=== PATIENT | female | born 1985 | race Caucasian/White ===

== ENCOUNTER 2017-03-23 13:04 | Emergency (ER) | payer OTHER ==
[2017-03-23] MEDS ORDERED: SODIUM CHLORIDE 0.9% 1,000 ML IV STA (14:46)
[2017-03-23 15:22] LABS: Basophils % (A) 0 %; Eosinophils % (A) 0 %; HCT 38.3 % (34.0-46.0); HGB 12.6 gm/dL (11.4-16.0); Lymphocytes % (A) 9 %; MCH 29.1 pg (25.0-35.0); MCHC 32.9 g/dL (31.0-37.0); MCV 88.4 fL (80.0-100.0); Mean Platelet Volume 6.8; Monocytes # (A) 0.5 k/uL (0-1.0); Monocytes % (A) 5 %; Neutrophils # (A) 9.1 k/uL (1.3-7.7); Neutrophils % (A) 85 %; Platelet Count 376 k/uL (150-450); RBC 4.33 m/uL (3.80-5.40); RDW 12.3 % (11.5-15.5); WBC 10.7 k/uL (3.8-10.6)
[2017-03-23 15:27] LABS: ALT 32 U/L (9-52); AST 18 U/L (14-36); Albumin 4.3 g/dL (3.5-5.0); Alkaline Phosphatase 58 U/L (38-126); Anion Gap 8 mmol/L; Blood Urea Nitrogen 9 mg/dL (7-17); Calcium 10.1 mg/dL (8.4-10.2); Carbon Dioxide 27 mmol/L (22-30); Chloride 104 mmol/L (98-107); Glucose 105 mg/dL (74-99); Potassium 3.9 mmol/L (3.5-5.1); Sodium 139 mmol/L (137-145); Total Bilirubin 0.3 mg/dL (0.2-1.3); Total Protein 7.3 g/dL (6.3-8.2)
[2017-03-23] MEDS ORDERED: ONDANSETRON 4 MG/2 ML VIAL IVP STA (15:28)
[2017-03-23] MEDS ORDERED: HYDROmorphone 1 MG/ML 1 ML SYRINGE IVP STA (15:28)
[2017-03-23] MEDS ORDERED: SODIUM CHLORIDE 0.9% 1,000 ML IV SCH (15:30)
[2017-03-23] MEDS ORDERED: RX INFO: IV CONTRAST WAS GIVEN 1 EACH MISC MISCELLANE PRN (15:31)
[2017-03-23 15:37] LABS: Creatine Kinase 45 U/L (30-135)
[2017-03-23 15:43] LABS: Prothrombin Time 10.1 sec (9.0-12.0)
[2017-03-23 15:50] LABS: Creatine Kinase MB 1.8 ng/mL (0.0-2.4); Troponin I <0.012 ng/mL (0.000-0.034)
--- NOTE | 2017-03-23 15:59 | ED ---
General Adult HPI - General Chief complaint: GI Bleed Stated complaint: Abd pain Time Seen by Provider: 03/23/17 14:36 Source: patient, RN notes reviewed, old records reviewed Mode of arrival: ambulatory Limitations: no limitations - History of Present Illness Initial comments: 31-year-old female presents emergency Department chief complaint of an ulcerative colitis exacerbation. She was started on steroids by Dr. Sharp possibly 3 days ago. She for she's been having worsening bloody stools. Reports is a dark blood. Patient states that she's has a foul odor to her stools. She reports she has upper and lower abdominal pain. She states that she's not had a flareup this bad, manages with remicade and kanasta suppositories. She denies any fever she feels chilled. She denies any vomiting. - Related Data Home Medications Medication Instructions Recorded Confirmed Acetaminophen [Tylenol 8 Hour] 650 mg PO TID PRN 03/23/17 03/23/17 Amoxicillin 875 mg PO Q12HR 03/23/17 03/23/17 Dextroamphetamine/Amphetamine 20 mg PO QAM PRN 03/23/17 03/23/17 [Adderall Xr] Fluconazole [Diflucan] 150 mg PO ONCE 03/23/17 03/23/17 Ondansetron [Zofran] 4 mg PO Q12HR PRN 03/23/17 03/23/17 predniSONE 10 mg PO TID 03/23/17 03/23/17 Previous Rx's Medication Instructions Recorded Omeprazole [PriLOSEC] 40 mg PO DAILY #30 capsule. 03/23/17 Sucralfate [Carafate] 1 gm PO BID #20 tablet 03/23/17 predniSONE 50 mg PO DAILY #7 tablet 03/23/17 Allergies Allergy/AdvReac Type Severity Reaction Status Date / Time prochlorperazine Allergy Confusion Verified 03/23/17 15:09 [From Compazine] Review of Systems ROS Statement: Those systems with pertinent positive or pertinent negative responses have been documented in the HPI. ROS Other: All systems not noted in ROS Statement are negative. Past Medical History Past Medical History: Fibromyalgia Additional Past Medical History / Comment(s): ulcerative colitis, endometriosis , arthritis History of Any Multi-Drug Resistant Organisms: None Reported Past Surgical History: Adenoidectomy, Ear Surgery, Tonsillectomy, Tubal Ligation , Uterine Ablation Past Psychological History: No Psychological Hx Reported Smoking Status: Current every day smoker Past Alcohol Use History: None Reported Past Drug Use History: None Reported General Exam - General Exam Comments Initial Comments: Is a 31-year-old female. No acute distress. Limitations: no limitations General appearance: alert, in no apparent distress Head exam: Present: atraumatic, normocephalic, normal inspection Eye exam: Present: normal appearance, PERRL, EOMI. Absent: scleral icterus, conjunctival injection, periorbital swelling ENT exam: Present: normal exam, mucous membranes moist Neck exam: Present: normal inspection. Absent: tenderness, meningismus, lymphadenopathy Respiratory exam: Present: normal lung sounds bilaterally. Absent: respiratory distress, wheezes, rales, rhonchi, stridor Cardiovascular Exam: Present: regular rate, normal rhythm, normal heart sounds. Absent: systolic murmur, diastolic murmur, rubs, gallop, clicks GI/Abdominal exam: Present: soft, tenderness (lower quadrant and epigastric tenderness), normal bowel sounds. Absent: distended, guarding, rebound, rigid Extremities exam: Present: normal inspection, full ROM, normal capillary refill. Absent: tenderness, pedal edema, joint swelling, calf tenderness Back exam: Present: normal inspection Neurological exam: Present: alert, oriented X3, CN II-XII intact Psychiatric exam: Present: normal affect Skin exam: Present: warm, dry, intact, normal color. Absent: rash Course Vital Signs 03/23/17 03/23/17 13:21 17:07 Temperature 97.7 F 98.4 F Pulse Rate 81 67 Respiratory 18 17 Rate Blood Pressure 126/83 118/68 O2 Sat by Pulse 98 99 Oximetry Medical Decision Making - Medical Decision Making [id number] female presents emergency Department chief complaint of an ulcerative colitis exacerbation. She was started on steroids by Dr. Sharp possibly 3 days ago. She for she's been having worsening bloody stools. Reports is a dark blood. Patient lab work was reviewed, stable labs. Normal Hgb. Stool occult is positive. No other significant abnormalities. CT abdomen and pelvis completed. Patient CT was normal. Discussed that we can increase prednisone dose to 50 mg daily, patient is currently on 30. Discussed that her abdominal pain is more supperior, and with dark blood, it is likely an upper GI bleed vs. UC flare. Discussed starting prilosec and carafate. Discussed return parameters and follow up with PCP and GI specialist. Patient agrees to treatment plan and will comply. - Lab Data Result diagrams: 03/23/17 15:08 03/23/17 15:08 Lab Results 03/23/17 03/23/17 03/23/17 Range/Units 15:08 15:08 15:08 WBC 10.7 H (3.8-10.6) k/uL RBC 4.33 (3.80-5.40) m/uL Hgb 12.6 (11.4-16.0) gm/dL Hct 38.3 (34.0-46.0) % MCV 88.4 (80.0-100.0) fL MCH 29.1 (25.0-35.0) pg MCHC 32.9 (31.0-37.0) g/dL RDW 12.3 (11.5-15.5) % Plt Count 376 (150-450) k/uL Neutrophils % 85 % Lymphocytes % 9 % Monocytes % 5 % Eosinophils % 0 % Basophils % 0 % Neutrophils # 9.1 H (1.3-7.7) k/uL Lymphocytes # 1.0 (1.0-4.8) k/uL Monocytes # 0.5 (0-1.0) k/uL Eosinophils # 0.0 (0-0.7) k/uL Basophils # 0.0 (0-0.2) k/uL PT (9.0-12.0) sec INR (<1.2) APTT (22.0-30.0) sec Sodium 139 (137-145) mmol/L Potassium 3.9 (3.5-5.1) mmol/L Chloride 104 (98-107) mmol/L Carbon Dioxide 27 (22-30) mmol/L Anion Gap 8 mmol/L BUN 9 (7-17) mg/dL Creatinine 0.57 (0.52-1.04) mg/dL Est GFR (MDRD) Af Amer >60 (>60 ml/min/1.73 sqM) Est GFR (MDRD) Non-Af >60 (>60 ml/min/1.73 sqM) Glucose 105 H (74-99) mg/dL Calcium 10.1 (8.4-10.2) mg/dL Magnesium (1.6-2.3) mg/dL Total Bilirubin 0.3 (0.2-1.3) mg/dL AST 18 (14-36) U/L ALT 32 (9-52) U/L Alkaline Phosphatase 58 (38-126) U/L Total Creatine Kinase 45 (30-135) U/L CK-MB (CK-2) 1.8 (0.0-2.4) ng/mL CK-MB (CK-2) Rel Index 4.0 Troponin I <0.012 (0.000-0.034) ng/mL Total Protein 7.3 (6.3-8.2) g/dL Albumin 4.3 (3.5-5.0) g/dL Urine Color Urine Appearance (Clear) Urine pH (5.0-8.0) Ur Specific [place] (1.001-1.035) Urine Protein (Negative) Urine Glucose (UA) (Negative) Urine Ketones (Negative) Urine Blood (Negative) Urine Nitrite (Negative) Urine Bilirubin (Negative) Urine Urobilinogen (<2.0) mg/dL Ur Leukocyte Esterase (Negative) Urine HCG, Qual (Not Detectd) Stool Occult Blood (Negative) 03/23/17 03/23/17 03/23/17 Range/Units 15:08 15:08 15:08 WBC (3.8-10.6) k/uL RBC (3.80-5.40) m/uL Hgb (11.4-16.0) gm/dL Hct (34.0-46.0) % MCV (80.0-100.0) fL MCH (25.0-35.0) pg MCHC (31.0-37.0) g/dL RDW (11.5-15.5) % Plt Count (150-450) k/uL Neutrophils % % Lymphocytes % % Monocytes % % Eosinophils % % Basophils % % Neutrophils # (1.3-7.7) k/uL Lymphocytes # (1.0-4.8) k/uL Monocytes # (0-1.0) k/uL Eosinophils # (0-0.7) k/uL Basophils # (0-0.2) k/uL PT 10.1 (9.0-12.0) sec INR 1.0 (<1.2) APTT 22.2 (22.0-30.0) sec Sodium (137-145) mmol/L Potassium (3.5-5.1) mmol/L Chloride (98-107) mmol/L Carbon Dioxide (22-30) mmol/L Anion Gap mmol/L BUN (7-17) mg/dL Creatinine (0.52-1.04) mg/dL Est GFR (MDRD) Af Amer (>60 ml/min/1.73 sqM) Est GFR (MDRD) Non-Af (>60 ml/min/1.73 sqM) Glucose (74-99) mg/dL Calcium (8.4-10.2) mg/dL Magnesium 2.1 (1.6-2.3) mg/dL Total Bilirubin (0.2-1.3) mg/dL AST (14-36) U/L ALT (9-52) U/L Alkaline Phosphatase (38-126) U/L Total Creatine Kinase (30-135) U/L CK-MB (CK-2) (0.0-2.4) ng/mL CK-MB (CK-2) Rel Index Troponin I (0.000-0.034) ng/mL Total Protein (6.3-8.2) g/dL Albumin (3.5-5.0) g/dL Urine Color Urine Appearance (Clear) Urine pH (5.0-8.0) Ur Specific [place] (1.001-1.035) Urine Protein (Negative) Urine Glucose (UA) (Negative) Urine Ketones (Negative) Urine Blood (Negative) Urine Nitrite (Negative) Urine Bilirubin (Negative) Urine Urobilinogen (<2.0) mg/dL Ur Leukocyte Esterase (Negative) Urine HCG, Qual (Not Detectd) Stool Occult Blood (Negative) 03/23/17 03/23/17 03/23/17 Range/Units 15:25 15:25 15:41 WBC (3.8-10.6) k/uL RBC (3.80-5.40) m/uL Hgb (11.4-16.0) gm/dL Hct (34.0-46.0) % MCV (80.0-100.0) fL MCH (25.0-35.0) pg MCHC (31.0-37.0) g/dL RDW (11.5-15.5) % Plt Count (150-450) k/uL Neutrophils % % Lymphocytes % % Monocytes % % Eosinophils % % Basophils % % Neutrophils # (1.3-7.7) k/uL Lymphocytes # (1.0-4.8) k/uL Monocytes # (0-1.0) k/uL Eosinophils # (0-0.7) k/uL Basophils # (0-0.2) k/uL PT (9.0-12.0) sec INR (<1.2) APTT (22.0-30.0) sec Sodium (137-145) mmol/L Potassium (3.5-5.1) mmol/L Chloride (98-107) mmol/L Carbon Dioxide (22-30) mmol/L Anion Gap mmol/L BUN (7-17) mg/dL Creatinine (0.52-1.04) mg/dL Est GFR (MDRD) Af Amer (>60 ml/min/1.73 sqM) Est GFR (MDRD) Non-Af (>60 ml/min/1.73 sqM) Glucose (74-99) mg/dL Calcium (8.4-10.2) mg/dL Magnesium (1.6-2.3) mg/dL Total Bilirubin (0.2-1.3) mg/dL AST (14-36) U/L ALT (9-52) U/L Alkaline Phosphatase (38-126) U/L Total Creatine Kinase (30-135) U/L CK-MB (CK-2) (0.0-2.4) ng/mL CK-MB (CK-2) Rel Index Troponin I (0.000-0.034) ng/mL Total Protein (6.3-8.2) g/dL Albumin (3.5-5.0) g/dL Urine Color Yellow Urine Appearance Clear (Clear) Urine pH 6.5 (5.0-8.0) Ur Specific [place] 1.013 (1.001-1.035) Urine Protein Negative (Negative) Urine Glucose (UA) Negative (Negative) Urine Ketones Trace H (Negative) Urine Blood Negative (Negative) Urine Nitrite Negative (Negative) Urine Bilirubin Negative (Negative) Urine Urobilinogen <2.0 (<2.0) mg/dL Ur Leukocyte Esterase Negative (Negative) Urine HCG, Qual Not Detected (Not Detectd) Stool Occult Blood Positive H (Negative) - Radiology Data Radiology results: report reviewed CT abdomen and pelvis is negative for any acute process. Disposition Clinical Impression: Ulcerative colitis, GI bleed Disposition: HOME SELF-CARE Condition: Good Instructions: Gastrointestinal Bleeding (ED) Additional Instructions: Follow up with GI specialist. Return to ED if any alarming signs or symptoms occur. Rest, remain hydrated Prescriptions: Omeprazole [PriLOSEC] 40 mg PO DAILY #30 capsule. predniSONE 50 mg PO DAILY #7 tablet Sucralfate [Carafate] 1 gm PO BID #20 tablet Referrals: Messi Cr MD [Primary Care Provider] - 1-2 days Time of Disposition: 16:57
[2017-03-23 16:00] LABS: Appearance,Urine Clear (Clear); Bilirubin,Urine Negative (Negative); Blood,Urine Negative (Negative); Color,Urine Yellow; Glucose,Urine (UA) Negative (Negative); Ketones,Urine Trace (Negative); Leukocyte Esterase,Urine Negative (Negative); Nitrite,Urine Negative (Negative); PH, Urine 6.5 (5.0-8.0); Protein,Urine Negative (Negative); Specific Gravity,Urine 1.013 (1.001-1.035); Urobilinogen,Urine <2.0 mg/dL (<2.0)
--- NOTE | 2017-03-23 16:26 | CT ---
EXAMINATION TYPE: CT abdomen pelvis w con DATE OF EXAM: 03/23/2017 COMPARISON: 01/04/2016 HISTORY: upper abdominal pain with blood in stool and weight loss CT DLP: 332.3 mGycm Automated exposure control for dose reduction was used. TECHNIQUE: Helical acquisition of images was performed from the lung bases through the pelvis. CONTRAST: Performed without Oral Contrast and with IV Contrast, patient injected with 100 mL of Omnipaque 300. FINDINGS: Lung bases are clear. There is no pleural effusion. Liver spleen pancreas gallbladder appear normal. Bile ducts are not dilated. There is no adrenal mass. Kidneys show satisfactory contrast opacificatio n. There is no hydronephrosis. There is no retroperitoneal adenopathy. There is no ascites. I see no intestinal wall thickening. There are no dilated loops. Bladder distends smoothly. I see no bony dest ructive process. There is no sign of appendicitis. IMPRESSION: NEGATIVE CT SCAN OF THE ABDOMEN AND PELVIS. NO ADVERSE CHANGE COMPARED TO OLD EXAM.
[2017-03-23 17:08] VITALS: BP 118/68; PULSE 67; RESP 17; TEMP 98.4
== END 2017-03-23 17:07 | disposition home or self-care (01) ==
LOC: EC 13:04
DX: K51.90 Ulcerative colitis, unspecified, without complications (principal); K92.2 Gastrointestinal hemorrhage, unspecified; F17.200 Nicotine dependence, unspecified, uncomplicated; Z79.52 Long term (current) use of systemic steroids; Z79.899 Other long term (current) drug therapy; Z88.8 Allergy status to other drugs, medicaments and biological substances
CPT/HCPCS: 36415; 80053; 82550; 82553; 83735; 84484; 85025; 85610; 85730; 82272; 81003; 81025; 74177; 99285; 96374; 96375; 96361 ×2; J2405; J1170; Q9967

== ENCOUNTER 2017-09-04 21:54 | Emergency (ER) | payer OTHER ==
[2017-09-04 22:29] VITALS: RESP 18
[2017-09-04] MEDS ORDERED: KETOROLAC 30 MG/ML 1 ML VIAL IVP STA (23:42)
[2017-09-04] MEDS ORDERED: SODIUM CHLORIDE 0.9% 1,000 ML IV ONE (23:42)
[2017-09-04 23:57] LABS: Basophils % (A) 1 %; Eosinophils # (A) 0.1 k/uL (0-0.7); Eosinophils % (A) 1 %; HCT 32.8 % (34.0-46.0); HGB 10.6 gm/dL (11.4-16.0); Hypochromasia Moderate; Lymphocytes # (A) 2.2 k/uL (1.0-4.8); Lymphocytes % (A) 23 %; MCH 25.7 pg (25.0-35.0); MCHC 32.3 g/dL (31.0-37.0); MCV 79.8 fL (80.0-100.0); Mean Platelet Volume 6.6; Monocytes # (A) 0.5 k/uL (0-1.0); Monocytes % (A) 5 %; Neutrophils # (A) 6.7 k/uL (1.3-7.7); Neutrophils % (A) 69 %; Platelet Count 372 k/uL (150-450); Poikilocytosis Slight; RBC 4.11 m/uL (3.80-5.40); RDW 14.1 % (11.5-15.5); WBC 9.7 k/uL (3.8-10.6)
[2017-09-05 00:05] LABS: Anion Gap 9 mmol/L; Blood Urea Nitrogen 14 mg/dL (7-17); Calcium 8.8 mg/dL (8.4-10.2); Carbon Dioxide 26 mmol/L (22-30); Chloride 103 mmol/L (98-107); Glucose 83 mg/dL (74-99); Potassium 3.1 mmol/L (3.5-5.1); Sodium 138 mmol/L (137-145)
[2017-09-05] MEDS ORDERED: MORPHINE SULFATE 2 MG/ML SYRINGE IV STA (00:32)
[2017-09-05] MEDS ORDERED: ONDANSETRON 4 MG/2 ML VIAL IVP STA (00:39)
[2017-09-05 01:02] VITALS: TEMP 98.4
[2017-09-05 01:18] LABS: Erythrocyte Sedimentation Rate 26 mm/hr (0-20)
[2017-09-05 01:33] LABS: Glucose,CSF 52 mg/dL (40-70); Total Protein,CSF 40 mg/dL (12-60)
[2017-09-05 01:39] VITALS: PULSE 79
[2017-09-05 02:01] LABS: Appearance,CSF Clear; CSF Tube Number 3; CSF Tube Volume 0.5; Nucleated Cells, CSF 0 u/L (0-5); Red Blood Cell,CSF 1 u/L (0-10)
[2017-09-05] MEDS ORDERED: POTASSIUM BICARBONATE/CIT AC 20 MEQ TABLET.EFF PO STA (02:05)
[2017-09-05 02:16] VITALS: BP 121/66
--- NOTE | 2017-09-05 02:23 | ED ---
Headache HPI - General Chief Complaint: Headache Stated Complaint: headache/nausea Time Seen by Provider: 09/04/17 22:32 Mode of arrival: ambulatory Limitations: no limitations - History of Present Illness Initial Comments: This patient is 31-year-old woman who presents to be evaluated for headache as well as nausea. Patient indicates that the headache is mainly occipital though it is in the entire head. She also feels like she has worsening pain with movement of her neck. She has had some low-grade fevers at home. She states that the last time she had this she was diagnosed with meningitis. She is concerned about possibility of this recurring. The patient also does give history of migraine headaches but states that this is different as those are usually more in the temporal area. She denies any neurologic symptoms. MD Complaint: headache -: hour(s) Onset Description: gradual Location: occipital Severity: severe Quality: aching Consistency: constant Improves With: nothing Worsens With: movement of head/neck Associated Symptoms: fever, nausea, vomiting Treatments Prior to Arrival: none - Related Data Home Medications Medication Instructions Recorded Confirmed Dextroamphetamine/Amphetamine 20 mg PO QAM PRN 03/23/17 09/04/17 [Adderall Xr] Ondansetron [Zofran] 4 mg PO Q12HR PRN 03/23/17 09/04/17 predniSONE 30 mg PO DAILY 03/23/17 09/04/17 Omeprazole [PriLOSEC] 20 mg PO BID 09/04/17 09/04/17 Previous Rx's Medication Instructions Recorded Potassium Chloride ER [K-Dur 20] 20 meq PO BID #10 tab 09/05/17 Allergies Allergy/AdvReac Type Severity Reaction Status Date / Time prochlorperazine Allergy Confusion Verified 09/04/17 22:20 [From Compazine] Review of Systems ROS Statement: Those systems with pertinent positive or pertinent negative responses have been documented in the HPI. ROS Other: All systems not noted in ROS Statement are negative. Constitutional: Reports: fever. Denies: chills, weakness Eyes: Denies: vision change ENT: Denies: ear pain, hearing loss Respiratory: Denies: cough, dyspnea Cardiovascular: Denies: chest pain, palpitations, edema, syncope Gastrointestinal: Reports: nausea, vomiting. Denies: abdominal pain Genitourinary: Denies: dysuria, hematuria Musculoskeletal: Denies: back pain Skin: Denies: rash Neurological: Reports: as per HPI, headache. Denies: weakness, numbness, paresthesias, confusion Hematological/Lymphatic: Denies: easy bleeding Past Medical History Past Medical History: Fibromyalgia Additional Past Medical History / Comment(s): ulcerative colitis, endometriosis , arthritis History of Any Multi-Drug Resistant Organisms: None Reported Past Surgical History: Adenoidectomy, Ear Surgery, Tonsillectomy, Tubal Ligation , Uterine Ablation Past Psychological History: No Psychological Hx Reported Smoking Status: Current every day smoker Past Alcohol Use History: None Reported Past Drug Use History: None Reported General Exam Limitations: no limitations General appearance: alert, in no apparent distress Head exam: Present: atraumatic, normocephalic Eye exam: Present: normal appearance. Absent: scleral icterus, conjunctival injection ENT exam: Present: normal oropharynx, mucous membranes moist, TM's normal bilaterally, normal external ear exam Neck exam: Present: normal inspection, full ROM, lymphadenopathy, other (The patient does have range of motion at the neck but complains of pain with this). Absent: tenderness Respiratory exam: Present: normal lung sounds bilaterally. Absent: respiratory distress, wheezes, rales, rhonchi, stridor Cardiovascular Exam: Present: regular rate, normal rhythm, normal heart sounds. Absent: systolic murmur, diastolic murmur, rubs, gallop GI/Abdominal exam: Present: soft. Absent: distended, tenderness, guarding, rebound, rigid, mass Extremities exam: Present: normal inspection, normal capillary refill. Absent: pedal edema, calf tenderness Back exam: Present: normal inspection. Absent: CVA tenderness (R), CVA tenderness (L) Neurological exam: Present: alert, oriented X3, CN II-XII intact. Absent: motor sensory deficit Skin exam: Present: warm, dry, intact, normal color. Absent: rash Course Vital Signs 09/04/17 09/04/17 09/04/17 22:05 22:27 23:16 Temperature 98.2 F 99.1 F Pulse Rate 95 84 93 Respiratory 16 18 18 Rate Blood Pressure 133/91 136/94 127/90 O2 Sat by Pulse 99 100 100 Oximetry 09/04/17 09/05/17 09/05/17 23:55 00:41 01:01 Temperature 98.4 F Pulse Rate 79 88 76 Respiratory 18 18 18 Rate Blood Pressure 122/80 127/79 118/76 O2 Sat by Pulse 98 100 99 Oximetry 09/05/17 09/05/17 01:38 02:15 Temperature Pulse Rate 79 79 Respiratory 18 18 Rate Blood Pressure 117/79 121/66 O2 Sat by Pulse 100 97 Oximetry Procedures - Lumbar Puncture Consent Obtained: verbal consent, written consent Time Out Performed: Yes Indication for Procedure: headache, fever work up Patient Position: sitting upright/leaning forward Skin Prep: Povidone-Iodine 1% Local Anesthetic Used: Lidocaine 1% Spinal Needle Gauge: 20G Spinal Needle Length: 3.5in Interspace Used: L4-L5 Fluid Initially Obtained: clear Complications: none Patient Tolerated Procedure: well Medical Decision Making - Medical Decision Making Patient is 31-year-old woman with headache and neck symptoms associated with low -grade fever. We discussed indications, risks and benefits of lumbar puncture and the patient requests this procedure. The fluid does not show any cells. The patient did have improvement with treatment. We discussed appropriate further care and follow-up. - Lab Data Result diagrams: 09/04/17 23:49 09/04/17 23:49 Lab Results 09/04/17 09/04/17 09/05/17 Range/Units 23:49 23:49 00:58 WBC 9.7 (3.8-10.6) k/uL RBC 4.11 (3.80-5.40) m/uL Hgb 10.6 L (11.4-16.0) gm/dL Hct 32.8 L (34.0-46.0) % MCV 79.8 L (80.0-100.0) fL MCH 25.7 (25.0-35.0) pg MCHC 32.3 (31.0-37.0) g/dL RDW 14.1 (11.5-15.5) % Plt Count 372 (150-450) k/uL Neutrophils % 69 % Lymphocytes % 23 % Monocytes % 5 % Eosinophils % 1 % Basophils % 1 % Neutrophils # 6.7 (1.3-7.7) k/uL Lymphocytes # 2.2 (1.0-4.8) k/uL Monocytes # 0.5 (0-1.0) k/uL Eosinophils # 0.1 (0-0.7) k/uL Basophils # 0.0 (0-0.2) k/uL Hypochromasia Moderate Poikilocytosis Slight ESR 26 H (0-20) mm/hr Sodium 138 (137-145) mmol/L Potassium 3.1 L (3.5-5.1) mmol/L Chloride 103 (98-107) mmol/L Carbon Dioxide 26 (22-30) mmol/L Anion Gap 9 mmol/L BUN 14 (7-17) mg/dL Creatinine 0.69 (0.52-1.04) mg/dL Est GFR (CKD-EPI)AfAm >90 (>60 ml/min/1.73 sqM) Est GFR (CKD-EPI)NonAf >90 (>60 ml/min/1.73 sqM) Glucose 83 (74-99) mg/dL Calcium 8.8 (8.4-10.2) mg/dL CSF Tube Number 3 CSF Volume 0.5 CSF Appearance Clear CSF Color Colorless CSF RBC 1 (0-10) u/L CSF Tot Nucleated Cells 0 (0-5) u/L CSF Glucose 52 (40-70) mg/dL CSF Total Protein 40 (12-60) mg/dL Disposition Clinical Impression: Viral syndrome Disposition: HOME SELF-CARE Condition: Good Instructions: Acute Headache (ED) Prescriptions: Potassium Chloride ER [K-Dur 20] 20 meq PO BID #10 tab Is patient prescribed a controlled substance at d/c from ED?: No Referrals: Messi Cr MD [Primary Care Provider] - 1-2 days
== END 2017-09-05 02:47 | disposition home or self-care (01) ==
LOC: EC 21:54
DX: B34.9 Viral infection, unspecified (principal); G43.909 Migraine, unspecified, not intractable, without status migrainosus; F17.200 Nicotine dependence, unspecified, uncomplicated; Z86.61 Personal history of infections of the central nervous system; Z79.52 Long term (current) use of systemic steroids; Z79.899 Other long term (current) drug therapy; Z88.8 Allergy status to other drugs, medicaments and biological substances
CPT/HCPCS: 36415; 84157; 80048; 82945; 85652; 85025; 89050; 87070; 87205; 99283; 62270; 96374; 96375 ×2; 96361 ×2; J2405; J1885; J2270

== ENCOUNTER → 2017-10-01 | Outpatient (CLI) | payer OTHER ==
--- NOTE | 2017-10-01 22:57 | MR ---
EXAMINATION TYPE: MR brain wo con DATE OF EXAM: 10/01/2017 COMPARISON: NONE HISTORY: Headache (R 51) per order. Severe migraine headaches with left-sided hearing loss per patien t. TECHNIQUE: Multiplanar, multisequence imaging of the brain and brainstem is performed without IV cont rast. FINDINGS: Diffusion weighted images demonstrate no evidence of a recent infarct or other diffusion abnormality. There is no extraaxial fluid collection or significant white matter signal abnormality. The ventricu lar system and cisternal spaces are normal in size and appearance. The brain volume is age appropria te. Midline structures demonstrate normal morphology. The craniocervical junction appears within normal limits. Normal vascular flow voids are present. The globes are distorted by artifact bilaterally. The re is suspected 1.2 cm mucous retention cyst or polyp in the posterior inferior right maxillary sinus otherwise paranasal sinuses are clear. IMPRESSION: No suspicious finding is seen to account for patient's symptoms.
== END | disposition home or self-care (01) ==
LOC: RADMRIMAIN 18:09
PROVIDERS: ATTEND Family Medicine
DX: R51 Headache (principal)
CPT/HCPCS: 70551

== ENCOUNTER → 2019-02-05 | Outpatient (CLI) | payer OTHER ==
--- NOTE | 2019-02-05 10:32 | ECHOF ---
Referral Reason:R07.89 atypical chest pain MEASUREMENTS -------- HEIGHT: 160.0 cm WEIGHT: 60.3 kg BP: RVIDd: 2.7 cm (< 3.3) IVSd: 0.9 cm (0.6 - 1.1) LVIDd: 3.4 cm (3.9 - 5.3) LVPWd: 1.0 cm (0.6 - 1.1) IVSs: 1.3 cm LVIDs: 2.4 cm LVPWs: 1.2 cm LAESV Index (A-L): 10.43 ml/m Ao Diam: 2.3 cm (2.0 - 3.7) AV Cusp: 2.1 cm (1.5 - 2.6) LA Diam: 3.1 cm (2.7 - 3.8) MV EXCURSION: 15.033 mm (> 18.000) MV EF SLOPE: 39 mm/s (70 - 150) EPSS: 0.2 cm MV E Alexey: 0.66 m/s MV DecT: 212 ms MV A Alexey: 0.52 m/s MV E/A Ratio: 1.26 RAP: 5.00 mmHg RVSP: 31.95 mmHg FINDINGS -------- Sinus rhythm. This was a technically good study. The left ventricular size is normal. Left ventricular wall thickness is normal. There is normal g lobal left ventricular contractility. Overall left ventricular systolic function is normal with, an EF between 55 - 60 %. The diastolic filling pattern is normal for the age of the patient 9.00. The right ventricle is normal in size and function. Normal LA size by volume 22+/-6 ml/m2. The right atrial size is normal. Interatrial and interventricular septum intact. The aortic valve is trileaflet, and appears structurally normal. No aortic stenosis or regurgitation. Normal appearing mitral valve. No mitral regurgitation. The tricuspid valve appears structurally normal. Trace tricuspid regurgitation present. There is no evidence of pulmonary hypertension. The right ventricular systolic pressure, as measured by Dopp ler, is 31.95mmHg. Trace/mild (physiologic) pulmonic regurgitation. The aortic root size is normal. Normal inferior vena cava with normal inspiratory collapse consistent with estimated right atrial pre ssure of 5 mmHg. There is no pericardial effusion. CONCLUSIONS -------- 1. Sinus rhythm. 2. This was a technically good study. 3. The left ventricular size is normal. 4. Left ventricular wall thickness is normal. 5. There is normal global left ventricular contractility. 6. Overall left ventricular systolic function is normal with, an EF between 55 - 60 %. 7. The diastolic filling pattern is normal for the age of the patient 9.00 8. The right ventricle is normal in size and function. 9. Normal LA size by volume 22+/-6 ml/m2. 10. The right atrial size is normal. 11. Interatrial and interventricular septum intact. 12. The aortic valve is trileaflet, and appears structurally normal. No aortic stenosis or regurgitat ion. 13. Normal appearing mitral valve. 14. No mitral regurgitation. 15. The tricuspid valve appears structurally normal. 16. Trace tricuspid regurgitation present. 17. There is no evidence of pulmonary hypertension. 18. The right ventricular systolic pressure, as measured by Doppler, is 31.95mmHg. 19. Trace/mild (physiologic) pulmonic regurgitation. 20. The aortic root size is normal. 21. Normal inferior vena cava with normal inspiratory collapse consistent with estimated right atrial pressure of 5 mmHg. 22. There is no pericardial effusion. JOURNALISM INTERN: Loan Peck RDCS
--- NOTE | 2019-02-05 12:14 | EST ---
EXERCISE STRESS AGE: 33 SEX: F HT: 5'3" WT: 133 PROTOCOL: William Stress Test STAGE: 3 DURATION OF EXERCISE: 9:00 HEART RATE REST: 80 BLOOD PRESSURE REST: 116/79 MAXIMUM HEART RATE ACHIEVED: 167 MAXIMUM BLOOD PRESSURE: 144/71 85% MPHR: 161 100% MPHR: 189 METS: 10.3 INDICATIONS: Chest pain. CLINICAL INFORMATION: Baseline heart rate 80 beats per minute. Baseline blood pressure 116/79 mmHg. Baseline 12-lead ECG shows normal sinus rhythm with subtle early repolarization abnormality. Patient exercised on William protocol for 9 minutes. She did complain of fatigue and chest discomfort. There was no ECG evidence for ischemia. No arrhythmias were noted. IMPRESSION: 1. Good exercise capacity. 2. No ECG evidence for ischemia. 3. Normal blood pressure in response to exercise. MMODL / IJN: [id number] /
== END | disposition home or self-care (01) ==
LOC: RADECHMAIN 09:16
PROVIDERS: ATTEND Family Medicine
DX: R07.89 Other chest pain (principal)
CPT/HCPCS: 93017; 93306

== ENCOUNTER 2019-04-08 20:52 | Emergency (ER) | payer OTHER ==
[2019-04-08] MEDS ORDERED: SODIUM CHLORIDE 0.9% 1,000 ML IV ONE (21:06)
[2019-04-08] MEDS ORDERED: HYDROmorphone 1 MG/ML 1 ML SYRINGE IVP STA (21:06)
[2019-04-08] MEDS ORDERED: ONDANSETRON 4 MG/2 ML VIAL IVP STA (21:06)
--- NOTE | 2019-04-08 21:09 | ED ---
Abdominal Pain HPI - General Chief Complaint: Abdominal Pain Stated Complaint: Chrons Flare up Time Seen by Provider: 04/08/19 20:58 Source: patient Mode of arrival: ambulatory Limitations: no limitations - History of Present Illness Initial Comments: 33-year-old female patient with past medical history significant for Crohn's disease presents to the emergency department today for evaluation of abdominal pain, diarrhea, passing blood in the stool. Patient states she's been having increasing problem for months over the last couple days symptoms have been worsening. Patient states that her diarrhea so frequent she is having a lot of rectal pain and pressure with this. Patient states she feels weak and dehydrated. States she has been nauseated. She did take 8 mg of Zofran this morning. Patient states her last humira injection was 2 weeks ago[address] She sees Dr. Willson outpatient for GI. Patient believes she has been having fevers, states she's been having night sweats. Patient denies any recent rash, shortness breath, chest pain, back pain, numbness, tingling, dizziness, hematuria, dysuria, urinary urgency, urinary frequency, headache, visual changes, or any other complaints. - Related Data Home Medications Medication Instructions Recorded Confirmed Dextroamphetamine/Amphetamine 20 mg PO QAM PRN 03/23/17 09/04/17 [Adderall Xr] Ondansetron [Zofran] 4 mg PO Q12HR PRN 03/23/17 09/04/17 predniSONE 30 mg PO DAILY 03/23/17 09/04/17 Omeprazole [PriLOSEC] 20 mg PO BID 09/04/17 09/04/17 Previous Rx's Medication Instructions Recorded Potassium Chloride ER [K-Dur 20] 20 meq PO BID #10 tab 09/05/17 predniSONE 50 mg PO DAILY #5 tablet 04/08/19 Allergies Allergy/AdvReac Type Severity Reaction Status Date / Time prochlorperazine Allergy Confusion Verified 04/08/19 20:54 [From Compazine] Review of Systems ROS Statement: Those systems with pertinent positive or pertinent negative responses have been documented in the HPI. ROS Other: All systems not noted in ROS Statement are negative. Past Medical History Past Medical History: Fibromyalgia Additional Past Medical History / Comment(s): ulcerative colitis, endometriosis, arthritis History of Any Multi-Drug Resistant Organisms: None Reported Past Surgical History: Adenoidectomy, Ear Surgery, Tonsillectomy, Tubal Ligation, Uterine Ablation Additional Past Surgical History / Comment(s): colon resection Past Psychological History: No Psychological Hx Reported Smoking Status: Current every day smoker Past Alcohol Use History: None Reported Past Drug Use History: None Reported General Exam Limitations: no limitations General appearance: alert, in no apparent distress, other (Physical well- developed, well-nourished adult female patient in no acute distress. Vital signs upon presentation are temperature 98.0F, pulse 104, respirations 20, blood pressure 115/71, pulse ox 100% on room air.) Eye exam: Present: normal appearance, PERRL, EOMI. Absent: scleral icterus, conjunctival injection, periorbital swelling ENT exam: Present: normal exam, normal oropharynx, mucous membranes moist Respiratory exam: Present: normal lung sounds bilaterally. Absent: respiratory distress, wheezes, rales, rhonchi, stridor Cardiovascular Exam: Present: normal rhythm, tachycardia, normal heart sounds. Absent: systolic murmur, diastolic murmur, rubs, gallop, clicks GI/Abdominal exam: Present: soft, tenderness (periumbilical; left lower quadrant), normal bowel sounds. Absent: distended, guarding, rebound, rigid Neurological exam: Present: alert, oriented X3, CN II-XII intact Psychiatric exam: Present: normal affect, normal mood Skin exam: Present: warm, dry, intact, normal color. Absent: rash Course Vital Signs 04/08/19 20:54 Temperature 98.0 F Pulse Rate 104 H Respiratory 20 Rate Blood Pressure 115/71 O2 Sat by Pulse 100 Oximetry Medical Decision Making - Medical Decision Making 33-year-old female patient presents to the emergency department today for evaluation of abdominal pain, diarrhea, and rectal bleeding. Physical examination reveals a soft nontender abdomen. Labs reviewed and are unremarkable. White blood cell count and CRP are negative. CT abdomen and pelvis was obtained and did show some mild jejunal thickening. Patient is afebrile normal vital signs. Upon reevaluation she does report improvement of symptoms. She is currently pain-free. We did discuss management with steroid burst and pain medication. She does agree to outpatient treatment. We'll discharge to follow up with her GI specialist and primary care physician for recheck in 1-2 days. Return parameters were discussed in detail. She verbalizes understanding and agrees with this plan. - Lab Data Result diagrams: 04/08/19 21:15 04/08/19 21:15 Lab Results 04/08/19 04/08/19 04/08/19 Range/Units 21:15 21:15 21:15 WBC 10.2 (3.8-10.6) k/uL RBC 5.10 (3.80-5.40) m/uL Hgb 14.5 (11.4-16.0) gm/dL Hct 42.2 (34.0-46.0) % MCV 82.8 (80.0-100.0) fL MCH 28.3 (25.0-35.0) pg MCHC 34.2 (31.0-37.0) g/dL RDW 13.2 (11.5-15.5) % Plt Count 297 (150-450) k/uL Neutrophils % 54 % Lymphocytes % 27 % Monocytes % 8 % Eosinophils % 5 % Basophils % 2 % Neutrophils # 5.5 (1.3-7.7) k/uL Lymphocytes # 2.8 (1.0-4.8) k/uL Monocytes # 0.9 (0-1.0) k/uL Eosinophils # 0.5 (0-0.7) k/uL Basophils # 0.2 (0-0.2) k/uL Sodium 138 (137-145) mmol/L Potassium 3.7 (3.5-5.1) mmol/L Chloride 100 (98-107) mmol/L Carbon Dioxide 30 (22-30) mmol/L Anion Gap 8 mmol/L BUN 15 (7-17) mg/dL Creatinine 0.73 (0.52-1.04) mg/dL Est GFR (CKD-EPI)AfAm >90 (>60 ml/min/1.73 sqM) Est GFR (CKD-EPI)NonAf >90 (>60 ml/min/1.73 sqM) Glucose 101 H (74-99) mg/dL Calcium 9.8 (8.4-10.2) mg/dL Total Bilirubin 0.5 (0.2-1.3) mg/dL AST 16 (14-36) U/L ALT 13 (4-34) U/L Alkaline Phosphatase 70 (38-126) U/L C-Reactive Protein (<10.0) mg/L Total Protein 7.1 (6.3-8.2) g/dL Albumin 4.3 (3.5-5.0) g/dL Amylase 34 (30-110) U/L Lipase 41 (23-300) U/L Urine Color Urine Appearance (Clear) Urine pH (5.0-8.0) Ur Specific [place] (1.001-1.035) Urine Protein (Negative) Urine Glucose (UA) (Negative) Urine Ketones (Negative) Urine Blood (Negative) Urine Nitrite (Negative) Urine Bilirubin (Negative) Urine Urobilinogen (<2.0) mg/dL Ur Leukocyte Esterase (Negative) Urine RBC (0-5) /hpf Urine WBC (0-5) /hpf Ur Squamous Epith Cells (0-4) /hpf Urine Mucus (None) /hpf Urine HCG, Qual Not Detected (Not Detectd) 04/08/19 04/08/19 Range/Units 21:15 21:15 WBC (3.8-10.6) k/uL RBC (3.80-5.40) m/uL Hgb (11.4-16.0) gm/dL Hct (34.0-46.0) % MCV (80.0-100.0) fL MCH (25.0-35.0) pg MCHC (31.0-37.0) g/dL RDW (11.5-15.5) % Plt Count (150-450) k/uL Neutrophils % % Lymphocytes % % Monocytes % % Eosinophils % % Basophils % % Neutrophils # (1.3-7.7) k/uL Lymphocytes # (1.0-4.8) k/uL Monocytes # (0-1.0) k/uL Eosinophils # (0-0.7) k/uL Basophils # (0-0.2) k/uL Sodium (137-145) mmol/L Potassium (3.5-5.1) mmol/L Chloride (98-107) mmol/L Carbon Dioxide (22-30) mmol/L Anion Gap mmol/L BUN (7-17) mg/dL Creatinine (0.52-1.04) mg/dL Est GFR (CKD-EPI)AfAm (>60 ml/min/1.73 sqM) Est GFR (CKD-EPI)NonAf (>60 ml/min/1.73 sqM) Glucose (74-99) mg/dL Calcium (8.4-10.2) mg/dL Total Bilirubin (0.2-1.3) mg/dL AST (14-36) U/L ALT (4-34) U/L Alkaline Phosphatase (38-126) U/L C-Reactive Protein <5.0 (<10.0) mg/L Total Protein (6.3-8.2) g/dL Albumin (3.5-5.0) g/dL Amylase (30-110) U/L Lipase (23-300) U/L Urine Color Yellow Urine Appearance Cloudy H (Clear) Urine pH 6.0 (5.0-8.0) Ur Specific [place] 1.029 (1.001-1.035) Urine Protein 1+ H (Negative) Urine Glucose (UA) Negative (Negative) Urine Ketones Trace H (Negative) Urine Blood Negative (Negative) Urine Nitrite Negative (Negative) Urine Bilirubin Negative (Negative) Urine Urobilinogen 2.0 (<2.0) mg/dL Ur Leukocyte Esterase Small H (Negative) Urine RBC 1 (0-5) /hpf Urine WBC 7 H (0-5) /hpf Ur Squamous Epith Cells 3 (0-4) /hpf Urine Mucus Many H (None) /hpf Urine HCG, Qual (Not Detectd) - Radiology Data Radiology results: report reviewed, image reviewed CT abdomen and pelvis with contrast was obtained. Report was reviewed in its entirety. Impression by Dr. Burk shows questionable wall thickening of the proximal jejunum. Otherwise negative computed tomography scan of the abdomen and pelvis. Disposition Clinical Impression: Abdominal pain, Crohn disease Disposition: HOME SELF-CARE Condition: Good Instructions (If sedation given, give patient instructions): Crohn Disease (ED), Abdominal Pain (ED) Additional Instructions: Complete steroid prescription. Take pain medication sparingly as needed for severe symptoms. Continue home Zofran. Increase fluids. Avoid fatty or greasy foods. Consider using a fiber supplement to slow diarrhea. Follow-up with your GI specialist for further evaluation as soon as possible. Return to the emergency department immediately for any new, worsening, or concerning symptoms. Prescriptions: predniSONE 50 mg PO DAILY #5 tablet Is patient prescribed a controlled substance at d/c from ED?: No Referrals: Messi Cr MD [Primary Care Provider] - 1-2 days Time of Disposition: 22:55
[2019-04-08 21:30] LABS: Basophils # (A) 0.2 k/uL (0-0.2); Basophils % (A) 2 %; Eosinophils # (A) 0.5 k/uL (0-0.7); Eosinophils % (A) 5 %; HCT 42.2 % (34.0-46.0); HGB 14.5 gm/dL (11.4-16.0); Lymphocytes # (A) 2.8 k/uL (1.0-4.8); Lymphocytes % (A) 27 %; MCH 28.3 pg (25.0-35.0); MCHC 34.2 g/dL (31.0-37.0); MCV 82.8 fL (80.0-100.0); Mean Platelet Volume 7.3; Monocytes # (A) 0.9 k/uL (0-1.0); Monocytes % (A) 8 %; Neutrophils # (A) 5.5 k/uL (1.3-7.7); Neutrophils % (A) 54 %; Platelet Count 297 k/uL (150-450); RDW 13.2 % (11.5-15.5); WBC 10.2 k/uL (3.8-10.6)
[2019-04-08 21:35] LABS: Appearance,Urine Cloudy (Clear); Bilirubin,Urine Negative (Negative); Blood,Urine Negative (Negative); Color,Urine Yellow; Glucose,Urine (UA) Negative (Negative); Ketones,Urine Trace (Negative); Leukocyte Esterase,Urine Small (Negative); Mucus,Urine Many /hpf; Nitrite,Urine Negative (Negative); Protein,Urine 1+ (Negative); RBC,Urine 1 /hpf (0-5); Specific Gravity,Urine 1.029 (1.001-1.035); Squamous Epithelial Cell,Urine 3 /hpf (0-4); WBC,Urine 7 /hpf (0-5)
[2019-04-08 21:40] LABS: ALT 13 U/L (4-34); AST 16 U/L (14-36); African American GFR (CKD) >90 (>60 ml/min/1.73 sqM); Albumin 4.3 g/dL (3.5-5.0); Alkaline Phosphatase 70 U/L (38-126); Amylase 34 U/L (30-110); Anion Gap 8 mmol/L; Blood Urea Nitrogen 15 mg/dL (7-17); Calcium 9.8 mg/dL (8.4-10.2); Carbon Dioxide 30 mmol/L (22-30); Chloride 100 mmol/L (98-107); Glucose 101 mg/dL (74-99); Non-African American GFR(CKD) >90 (>60 ml/min/1.73 sqM); Potassium 3.7 mmol/L (3.5-5.1); Sodium 138 mmol/L (137-145); Total Bilirubin 0.5 mg/dL (0.2-1.3); Total Protein 7.1 g/dL (6.3-8.2)
--- NOTE | 2019-04-08 22:11 | CT ---
EXAMINATION TYPE: CT abdomen pelvis w con DATE OF EXAM: 04/08/2019 COMPARISON: 03/23/2017 HISTORY: Abdominal pain, blood in stool, hx of crohns CT DLP: 617.7 mGycm Automated exposure control for dose reduction was used. CONTRAST: Performed with IV Contrast, patient injected with 100 mL of Isovue 300. Lung bases are clear. There is no pleural effusion. Heart size is normal. Liver spleen stomach pancreas gallbladder appear normal. Bile ducts are not dilated. There is no adrenal mass. Kidneys show satisfactory contrast opacification. There is no hydronephrosi s. There is small umbilical hernia that contains fat. Bladder distends smoothly. Ureters are not dila jatinder. There is no retroperitoneal adenopathy. Uterus is anteverted. There is no pelvic mass. There is no inguinal hernia. There is no mesenteric edema. There is no ascites or free air. Lumbar spine is intact. Bony pelvis ap pears intact. Appendix is not seen. There is no sign of thickened appendix. There is no evidence of a bowel obstruction. There is borderline wall thickening of proximal jejunum. Impression There is questionable wall thickening of the proximal jejunum. Otherwise negative CT scan of the abdo men pelvis.
[2019-04-08] MEDS ORDERED: methylPREDNISolone SOD SUCCI 125 MG/2 ML VIAL IV STA (22:52)
[2019-04-08] MEDS ORDERED: ACET/COD 300 MG/30 MG STARTER PACK 6 TAB BTL PO STA (22:53)
[2019-04-08 23:10] VITALS: BP 97/58; PULSE 76; RESP 17; TEMP 97.9
== END 2019-04-08 23:10 | disposition home or self-care (01) ==
LOC: EC 20:52
DX: K50.90 Crohn's disease, unspecified, without complications (principal); F17.200 Nicotine dependence, unspecified, uncomplicated; Z79.51 Long term (current) use of inhaled steroids; Z79.899 Other long term (current) drug therapy; Z88.8 Allergy status to other drugs, medicaments and biological substances
CPT/HCPCS: 36415; 80053; 82150; 83690; 85025; 86140; 81001; 81025; 74177; 99284; 96374; 96375 ×2; 96361; J2930; J2405; J1170; Q9967

== ENCOUNTER 2019-07-07 03:11 | Inpatient (IN) | payer OTHER ==
[2019-07-07] MEDS ORDERED: SODIUM CHLORIDE 0.9% 1,000 ML IV STA (03:54)
[2019-07-07] MEDS ORDERED: ONDANSETRON 4 MG/2 ML VIAL IVP STA (03:54)
--- NOTE | 2019-07-07 04:02 | ED ---
Abdominal Pain HPI - General Chief Complaint: Abdominal Pain Stated Complaint: Vommiting Time Seen by Provider: 07/07/19 03:26 Source: patient, family Mode of arrival: wheelchair Limitations: no limitations - History of Present Illness Initial Comments: This patient is a 33-year-old woman who presents to be evaluated for abdominal symptoms. She states that she has history of Crohn's disease. She also just finished a course of vancomycin for Clostridium difficile infection. She finished the antibiotics approximately 2 weeks ago. She states her symptoms did improve a bit but she has continued to have abdominal pain, nausea vomiting, and watery bowel movements. No fevers. No blood or tarry stools. No coffee-ground emesis. No change in urination. Patient denies change in periods stating she had an endometrial ablation. The patient states she presents tonight because the sublingual Zofran that she takes at home is no longer working and she in addition to the abdominal pains is now feeling dehydrated. MD Complaint: abdominal pain -: days(s) Location: LUQ, RUQ, epigastric Radiation: none Migration to: no migration Severity: moderate Quality: cramping, burning Consistency: constant Improves With: nothing Worsens With: nothing Associated Symptoms: nausea, vomiting, diarrhea - Related Data Home Medications Medication Instructions Recorded Confirmed Dextroamphetamine/Amphetamine 20 mg PO QAM PRN 03/23/17 09/04/17 [Adderall Xr] Ondansetron [Zofran] 4 mg PO Q12HR PRN 03/23/17 09/04/17 predniSONE 30 mg PO DAILY 03/23/17 09/04/17 Omeprazole [PriLOSEC] 20 mg PO BID 09/04/17 09/04/17 Previous Rx's Medication Instructions Recorded Potassium Chloride ER [K-Dur 20] 20 meq PO BID #10 tab 09/05/17 Lidocaine [Lidocaine 5% Rectal 1 applic RECTAL TID PRN #15 gm 04/08/19 Cream] predniSONE 50 mg PO DAILY #5 tablet 04/08/19 Allergies Allergy/AdvReac Type Severity Reaction Status Date / Time acetaminophen Allergy Unknown Verified 07/07/19 03:18 [From Excedrin Migraine] aspirin Allergy Unknown Verified 07/07/19 03:18 [From Excedrin Migraine] azathioprine [From Imuran] Allergy Swelling Verified 07/07/19 03:18 caffeine Allergy Unknown Verified 07/07/19 03:18 [From Excedrin Migraine] hypochlorous acid Allergy Swelling Verified 07/07/19 03:18 [From Levicyn Antipruritic] morphine Allergy Rash/Hives Verified 07/07/19 03:18 prochlorperazine Allergy Confusion Verified 07/07/19 03:17 [From Compazine] sodium chloride Allergy Swelling Verified 07/07/19 03:18 [From Levicyn Antipruritic] sodium hypochlorite solution Allergy Swelling Verified 07/07/19 03:18 [From Levicyn Antipruritic] sodium magnesium Allergy Swelling Verified 07/07/19 03:18 fluorosilicate [From Levicyn Antipruritic] sodium phosphate Allergy Swelling Verified 07/07/19 03:18 [From Levicyn Antipruritic] Review of Systems ROS Statement: Those systems with pertinent positive or pertinent negative responses have been documented in the HPI. ROS Other: All systems not noted in ROS Statement are negative. Constitutional: Denies: fever, chills Respiratory: Denies: cough, dyspnea Cardiovascular: Denies: chest pain, palpitations, syncope Gastrointestinal: Reports: abdominal pain, nausea, diarrhea. Denies: constipation, hematemesis, melena, hematochezia Genitourinary: Denies: dysuria, frequency, hematuria Musculoskeletal: Denies: back pain Skin: Denies: rash Neurological: Denies: headache, weakness Past Medical History Past Medical History: Fibromyalgia Additional Past Medical History / Comment(s): ulcerative colitis, endometriosis, arthritis History of Any Multi-Drug Resistant Organisms: None Reported Past Surgical History: Adenoidectomy, Bowel Resection, Ear Surgery, Tonsillectomy, Tubal Ligation, Uterine Ablation Additional Past Surgical History / Comment(s): colon resection Past Psychological History: No Psychological Hx Reported Smoking Status: Current every day smoker Past Alcohol Use History: None Reported Past Drug Use History: None Reported General Exam Limitations: no limitations General appearance: alert, in no apparent distress Head exam: Present: atraumatic, normocephalic Eye exam: Present: normal appearance. Absent: scleral icterus, conjunctival injection ENT exam: Present: mucous membranes dry Respiratory exam: Present: normal lung sounds bilaterally. Absent: respiratory distress, wheezes, rales, rhonchi, stridor Cardiovascular Exam: Present: regular rate, normal rhythm, normal heart sounds. Absent: systolic murmur, diastolic murmur, rubs, gallop GI/Abdominal exam: Present: soft, hyperactive bowel sounds. Absent: distended, tenderness, guarding, rebound, rigid, mass, pulsatile mass, hernia Extremities exam: Present: normal inspection, normal capillary refill. Absent: pedal edema, calf tenderness Back exam: Present: normal inspection. Absent: CVA tenderness (R), CVA tenderness (L) Neurological exam: Present: alert Skin exam: Present: warm, dry, intact, normal color. Absent: rash Course Vital Signs 07/07/19 03:11 Temperature 98.1 F Pulse Rate 86 Respiratory 20 Rate Blood Pressure 125/82 O2 Sat by Pulse 99 Oximetry Disposition Referrals: Messi Cr MD [Primary Care Provider] - 1-2 days
--- NOTE | 2019-07-07 04:24 | XR ---
EXAMINATION TYPE: XR KUB DATE OF EXAM: 07/07/2019 COMPARISON: 01/04/2016 HISTORY: Abdominal pain TECHNIQUE: FINDINGS: 2 views supine were obtained. There is no sign of intestinal obstruction or pneumoperitoneu m. Fecal pattern is normal. Lung bases are clear. There are no pathologic calcifications over the kid neys. There are phleboliths in the pelvis. IMPRESSION: Nonacute abdomen. No adverse change.
[2019-07-07 04:30] LABS: Basophils % (A) 0 %; Eosinophils # (A) 0.4 k/uL (0-0.7); Eosinophils % (A) 3 %; HCT 40.4 % (34.0-46.0); Lymphocytes # (A) 1.4 k/uL (1.0-4.8); Lymphocytes % (A) 11 %; MCH 26.3 pg (25.0-35.0); MCHC 32.1 g/dL (31.0-37.0); Mean Platelet Volume 7.6; Monocytes # (A) 0.5 k/uL (0-1.0); Monocytes % (A) 3 %; Neutrophils # (A) 10.9 k/uL (1.3-7.7); Neutrophils % (A) 82 %; Platelet Count 299 k/uL (150-450); RBC 4.92 m/uL (3.80-5.40); RDW 12.8 % (11.5-15.5); WBC 13.3 k/uL (3.8-10.6)
[2019-07-07 04:44] LABS: ALT 14 U/L (4-34); AST 22 U/L (14-36); African American GFR (CKD) >90 (>60 ml/min/1.73 sqM); Albumin 4.4 g/dL (3.5-5.0); Alkaline Phosphatase 69 U/L (38-126); Amylase 41 U/L (30-110); Anion Gap 7 mmol/L; Blood Urea Nitrogen 8 mg/dL (7-17); Calcium 9.5 mg/dL (8.4-10.2); Carbon Dioxide 23 mmol/L (22-30); Chloride 109 mmol/L (98-107); Glucose 104 mg/dL (74-99); Non-African American GFR(CKD) >90 (>60 ml/min/1.73 sqM); Potassium 3.7 mmol/L (3.5-5.1); Sodium 139 mmol/L (137-145); Total Bilirubin 0.3 mg/dL (0.2-1.3); Total Protein 7.5 g/dL (6.3-8.2)
[2019-07-07 05:38] LABS: Appearance,Urine Clear (Clear); Bacteria,Urine Rare /hpf; Bilirubin,Urine Negative (Negative); Blood,Urine Negative (Negative); Color,Urine Yellow; Glucose,Urine (UA) Negative (Negative); Hyaline Casts,Urine 24 /lpf (0-2); Ketones,Urine Negative (Negative); Leukocyte Esterase,Urine Trace (Negative); Mucus,Urine Moderate /hpf; Nitrite,Urine Negative (Negative); Protein,Urine Negative (Negative); RBC,Urine 1 /hpf (0-5); Specific Gravity,Urine 1.023 (1.001-1.035); Squamous Epithelial Cell,Urine 3 /hpf (0-4); Urobilinogen,Urine <2.0 mg/dL (<2.0); WBC,Urine 3 /hpf (0-5)
[2019-07-07] MEDS ORDERED: PROMETHAZINE INJ 25 MG in SODIUM CHLORIDE 0.9% 50 ML IVPB STA (06:29)
[2019-07-07] MEDS ORDERED: BUTA/APAP/CAF/COD 50-325-40-30 CAP PO STA (06:29)
[2019-07-07] MEDS ORDERED: BUTALB/APAP/CAFF 50-325-40MG TAB PO STA (06:39)
[2019-07-07] MEDS ORDERED: PROMETHAZINE 25 MG TAB PO PRN (07:13)
[2019-07-07] MEDS ORDERED: NALOXONE 0.4 MG/ML 1 ML VIAL IV PRN (07:13)
[2019-07-07] MEDS ORDERED: MAG HYDROX/AL HYDROX/SIMETH 30 ML CUP PO PRN (07:13)
[2019-07-07] MEDS ORDERED: AMPHETAMINE PO PRN (07:16)
[2019-07-07] MEDS ORDERED: DEXTROAMPHETAMINE PO PRN (07:16)
[2019-07-07] MEDS ORDERED: LORazepam 2 MG/ML INJ IV STA (07:34)
[2019-07-07] MEDS: SODIUM CHLORIDE 0.9% 1,000 ML IV SCH ×2 (07:41→23:08)
[2019-07-07] MEDS ORDERED: FAMOTIDINE 20 MG TAB PO SCH (09:00)
[2019-07-07] MEDS ORDERED: predniSONE 10 MG TAB PO SCH (09:00)
[2019-07-07] MEDS ORDERED: PREGABALIN 75 MG CAP PO PRN (10:58)
[2019-07-07] MEDS ORDERED: PANTOPRAZOLE 40 MG TABLET PO SCH (11:15)
[2019-07-07] MEDS: AMPHETAMINE PO SCH (12:28)
[2019-07-07] MEDS: DEXTROAMPHETAMINE PO SCH (12:28)
[2019-07-07] MEDS: POTASSIUM CHLORIDE ER 20 MEQ TAB.ER PO SCH ×2 (13:24→20:49)
[2019-07-07] MEDS: PANTOPRAZOLE 40 MG TABLET PO SCH (17:13)
[2019-07-07] MEDS: ACETAMINOPHEN TAB 325 MG TAB PO PRN (19:17)
--- NOTE | 2019-07-07 21:23 | P.HPIM ---
History of Present Illness H&P Date: 07/07/19 Chief Complaint: Abdominal pain History of presenting complaint: This is a pleasant 33-year-old patient of Dr. saxena. 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 Diagnosed Crohn's disease 12 years ago. Patient is on Humira gets it every 2 weeks. Normally patient has about 10 bowel movements a day. Occasionally gets blood in there. About 2 weeks ago finished a course of vancomycin for C. diff colitis. Other chronic stable medical conditions include fibromyalgia for which she takes Lyrica endometriosis and ADHD for which she takes Adderall. Patient started of increasing abdominal pain diffuse with vomiting yesterday. No fever no chills. Still having frequency of bowel movements. Patient being admitted for the same. No respiratory symptoms. GI was consulted Review of systems: GEN.: Tired EYES: None HEENT: None NECK: None RESPIRATORY: None CARDIOVASCULAR: None GASTROINTESTINAL: As above GENITOURINARY: None MUSCULOSKELETAL: Fibromyalgia pain LYMPHATICS: None HEMATOLOGICAL: None PSYCHIATRY: None NEUROLOGICAL: None Past medical history to include: Crohn's disease, recent C. diff colitis, endometriosis, fibromyalgia, ADHD Social history: Lives with her fibernarda. Smoked a pack a day for 13 years stopped about a year ago. Does smoke marijuana occasionally. 6 children at home Family history: Reviewed, noncontributory to presentation Physical examination: VITAL SIGNS: 98.1, 86, 20, current 25/82, 99% on room air GENERAL: BMI 23, sitting and better bit tired. EYES: Pupils equal. Conjunctiva normal. HEENT: External appearance of nose and ears normal, oral cavity grossly normal. NECK: JVD not raised; masses not palpable. HEART: First and second heart sounds are normal; no edema. LUNGS: Respiratory rate normal; clear to auscultation. ABDOMEN: Soft, mild diffuse tenderness, no guarding or rigidity, liver spleen not palpable, no masses palpable. PSYCH: Alert and oriented x3; mood and affect normal. NEUROLOGICAL: Cranial nerves grossly intact; no facial asymmetry, power and sensation grossly intact. LYMPHATICS: No lymph nodes palpable in the axilla and neck INVESTIGATIONS, reviewed in the clinical context: White count 13.3 hemoglobin 13 platelets 299 potassium 3.7 creatinine 0.65 Stool for C. diff negative. Colitis PCR, influenza type A type B both negative Abdominal x-ray-no specific Assessment: -Acute flareup of inflammatory bowel disease. Patient chronically does take Humira -Chronic fibromyalgia -ADHD -Leukocytosis Plan: Patient with clear liquid diet. Lovenox for DVT prophylaxis. GI was consulted. Home medications resumed. Patient is also on 30 mg of prednisone. Care was discussed with the patient. Await further input from GI. Past Medical History Past Medical History: Fibromyalgia Additional Past Medical History / Comment(s): ulcerative colitis, endometriosis, arthritis History of Any Multi-Drug Resistant Organisms: None Reported Past Surgical History: Adenoidectomy, Bowel Resection, Ear Surgery, Tonsillectomy, Tubal Ligation, Uterine Ablation Additional Past Surgical History / Comment(s): Colon resection Past Psychological History: No Psychological Hx Reported Smoking Status: Current every day smoker Past Alcohol Use History: None Reported Past Drug Use History: None Reported Medications and Allergies Home Medications Medication Instructions Recorded Confirmed Type Adalimumab [Humira Pen] 40 mg SQ Q14D 07/07/19 07/07/19 History Dextroamphetamine/Amphetamine 30 mg PO DAILY 07/07/19 07/07/19 History [Adderall Xr] Omeprazole [PriLOSEC] 40 mg PO DAILY 07/07/19 07/07/19 History Pregabalin [Lyrica] 75 mg PO BID PRN 07/07/19 07/07/19 History Allergies Allergy/AdvReac Type Severity Reaction Status Date / Time azathioprine [From Imuran] Allergy Swelling Verified 07/07/19 07:42 caffeine Allergy Unknown Verified 07/07/19 07:42 [From Excedrin Migraine] hypochlorous acid Allergy Swelling Verified 07/07/19 07:42 [From Levicyn Antipruritic] morphine Allergy Rash/Hives Verified 07/07/19 07:42 prochlorperazine Allergy Confusion Verified 07/07/19 07:42 [From Compazine] sodium chloride Allergy Swelling Verified 07/07/19 07:42 [From Levicyn Antipruritic] sodium hypochlorite solution Allergy Swelling Verified 07/07/19 07:42 [From Levicyn Antipruritic] sodium magnesium Allergy Swelling Verified 07/07/19 07:42 fluorosilicate [From Levicyn Antipruritic] sodium phosphate Allergy Swelling Verified 07/07/19 07:42 [From Levicyn Antipruritic] Physical Exam Vitals: Vital Signs Temp Pulse Pulse Resp BP BP Pulse Ox 04/15/20 09:26 97.8 F 77 18 91/53 98 07/07/19 07:50 98.1 F 97 18 114/76 98 07/07/19 06:19 98.3 F 94 18 124/89 98 07/07/19 03:11 98.1 F 86 20 125/82 99 Intake and Output 07/06/19 07/07/19 07/07/19 22:59 06:59 14:59 Other: Weight 58.967 kg Results CBC & Chem 7: 07/07/19 04:19 07/07/19 04:19 Labs: Abnormal Lab Results - Last 24 Hours (Table) 07/07/19 07/07/19 07/07/19 Range/Units 04: 04:19 05:00 WBC 13.3 H (3.8-10.6) k/uL Neutrophils # 10.9 H (1.3-7.7) k/uL Chloride 109 H (98-107) mmol/L Glucose 104 H (74-99) mg/dL Ur Leukocyte Esterase Trace H (Negative) Urine Bacteria Rare H (None) /hpf Hyaline Casts 24 H (0-2) /lpf Urine Mucus Moderate H (None) /hpf Stool Occult Blood (Negative) 07/07/19 Range/Units 05:00 WBC (3.8-10.6) k/uL Neutrophils # (1.3-7.7) k/uL Chloride (98-107) mmol/L Glucose (74-99) mg/dL Ur Leukocyte Esterase (Negative) Urine Bacteria (None) /hpf Hyaline Casts (0-2) /lpf Urine Mucus (None) /hpf Stool Occult Blood Positive H (Negative) Microbiology - Last 24 Hours (Table) 07/07/19 05:00 Stool Culture - Preliminary Stool
--- NOTE | 2019-07-07 21:58 | CONS ---
CONSULTATION DATE OF DICTATION: 07/07/2019 REASON FOR CONSULTATION: Abdominal pain, nausea, vomiting and diarrhea. HISTORY OF PRESENT ILLNESS: This patient is a 33-year-old pleasant white female who is known to me from her multiple previous office visits. She has a history of Crohn's disease diagnosed about 10 years ago. She underwent subtotal colectomy with ileorectal anastomosis at [facility] about 2 years ago. She developed recurrent disease with proctitis and has been maintained on Humira infusions 40 mg every 2 weeks for the last 1-1/2 years' duration. For the last 2 weeks she started having severe nausea, vomiting and abdominal pain associated with diarrhea; hence came to the emergency room and was admitted to the hospital. She was recently seen by Dr. Nino, IBD specialist at [facility], and was diagnosed with C difficile infection, was treated with vancomycin for 10 days that she just finished 2 weeks ago. Repeat C difficile toxin during this hospitalization was negative. Her pain is mostly in the epigastric area. She denies any fever, chills or night sweats. She denies any blood or mucus in the stool. She also has some cramping lower abdominal pain. PAST MEDICAL HISTORY: Significant for Crohn's disease diagnosed about 10 years ago, status post subtotal colectomy, history of fibromyalgia, endometriosis, degenerative joint disease. PAST SURGICAL HISTORY: Subtotal colectomy 2 years ago at [facility], tonsillectomy, tubal ligation, uterine ablation. ALLERGIES: ACETAMINOPHEN, ASPIRIN, CAFFEINE, COMPAZINE. HOME MEDICATIONS: Medications at home include Humira, Zofran, Prilosec, Adderall, prednisone 30 mg daily. SOCIAL HISTORY: No smoking or alcohol use. FAMILY HISTORY: Unremarkable. REVIEW OF SYSTEMS: CARDIOPULMONARY: She denies any chest pain or shortness of breath. GENITOURINARY: No dysuria or hematuria. MUSCULOSKELETAL: Chronic arthralgia. NEUROLOGY: Unremarkable. PSYCHIATRY: Unremarkable. ENT/VISION: Unremarkable. CONSTITUTIONAL: No recent weight loss. No fever, chills, night sweats. HEMATOLOGY: Unremarkable. ENDOCRINE: Unremarkable. PHYSICAL EXAMINATION: She appears comfortable. No apparent distress. Vital signs are stable. Blood pressure 116/73, pulse rate 83, temperature 98.3. HEENT examination unremarkable. Conjunctivae pink. Sclerae anicteric. Oral cavity no lesions. NECK: No JVD or lymph node enlargement. CHEST: Clear to auscultation. HEART: Regular rate and rhythm. ABDOMEN: Soft. There was tenderness in the epigastric area and mild tenderness diffusely all over the abdomen. EXTREMITIES: No pedal edema. SKIN: No rashes. NEUROLOGIC: Alert and oriented x3. No focal deficits. LABS: WBC 13.3, hemoglobin 13, platelets normal. Basic metabolic panel is within normal limits. COVID-19 was negative. C difficile toxin was negative. IMPRESSION: 1. Acute onset of nausea and vomiting for the last 2 weeks' duration. COVID-19 is negative. Symptoms are gradually improving. 2. Longstanding history of Crohn's colitis, status post subtotal colectomy with ileorectal anastomosis done at [facility] 2 years ago, presently maintained on Humira infusions 40 mg every 2 weeks. Now has diarrhea but no rectal bleeding. 3. Recent Clostridium difficile colitis, status post treatment with vancomycin for 10 days approximately 2 weeks ago. Repeat C difficile toxin is negative. RECOMMENDATIONS: 1. Continue with symptomatic and supportive care. 2. Continue with Protonix 40 mg daily as well as antiemetics as needed. 3. Hold off on any steroids at the present time. 4. Will start her on a clear liquid diet and advance as tolerated. 5. No plans for any endoscopic intervention. 6. Repeat labs in the morning and will follow with you closely. Thank you for this consultation. MMODL / IJN: [id number] /
[2019-07-08] MEDS: KETOROLAC 30 MG/ML 1 ML VIAL IVP PRN ×2 (04:00→18:11)
[2019-07-08] MEDS: SODIUM CHLORIDE 0.9% 1,000 ML IV SCH ×3 (06:01→20:09)
[2019-07-08] MEDS: DEXTROAMPHETAMINE PO SCH (08:04)
[2019-07-08] MEDS: AMPHETAMINE PO SCH (08:04)
[2019-07-08] MEDS: POTASSIUM CHLORIDE ER 20 MEQ TAB.ER PO SCH ×3 (08:09→20:09)
[2019-07-08] MEDS: PANTOPRAZOLE 40 MG TABLET PO SCH ×2 (08:09→16:31)
[2019-07-08 09:11] LABS: Basophils % (A) 0 %; Eosinophils # (A) 0.4 k/uL (0-0.7); Eosinophils % (A) 5 %; HCT 32.1 % (34.0-46.0); HGB 10.3 gm/dL (11.4-16.0); Lymphocytes # (A) 1.9 k/uL (1.0-4.8); Lymphocytes % (A) 25 %; MCH 26.8 pg (25.0-35.0); MCHC 31.9 g/dL (31.0-37.0); MCV 83.8 fL (80.0-100.0); Mean Platelet Volume 7.5; Monocytes # (A) 0.4 k/uL (0-1.0); Monocytes % (A) 6 %; Neutrophils # (A) 4.5 k/uL (1.3-7.7); Neutrophils % (A) 61 %; Platelet Count 262 k/uL (150-450); RBC 3.83 m/uL (3.80-5.40); RDW 12.4 % (11.5-15.5); WBC 7.3 k/uL (3.8-10.6)
[2019-07-08 09:18] LABS: ALT 12 U/L (4-34); AST 16 U/L (14-36); African American GFR (CKD) >90 (>60 ml/min/1.73 sqM); Albumin 2.9 g/dL (3.5-5.0); Alkaline Phosphatase 38 U/L (38-126); Anion Gap 4 mmol/L; Blood Urea Nitrogen 3 mg/dL (7-17); Calcium 8.1 mg/dL (8.4-10.2); Carbon Dioxide 23 mmol/L (22-30); Chloride 110 mmol/L (98-107); Glucose 102 mg/dL (74-99); Non-African American GFR(CKD) >90 (>60 ml/min/1.73 sqM); Potassium 2.9 mmol/L (3.5-5.1); Sodium 137 mmol/L (137-145); Total Bilirubin 0.2 mg/dL (0.2-1.3); Total Protein 5.5 g/dL (6.3-8.2)
[2019-07-08] MEDS: methylPREDNISolone SOD SUCCI 40 MG/ML 1 ML VIAL IV SCH ×2 (09:36→16:31)
--- NOTE | 2019-07-08 16:23 | PN ---
PROGRESS NOTE DATE OF SERVICE: 07/08/2019 Patient is a 33-year-old pleasant white female with history of Crohn's disease, status post subtotal colectomy with rectal anastomosis in December of 2017 at [facility]. She developed severe proctitis following the surgery and has been maintained on Humira 40 mg every 2 weeks. She presents to the hospital with nausea, vomiting, abdominal pain and diarrhea with blood in the stool. Yesterday, she had about 7 bowel movements all with blood and mucous in the stool. She still has some abdominal pain. Her nausea and vomiting have resolved. She is on a clear liquid diet, tolerating well. No fever, chills, night sweats. Repeat C difficile toxin was negative, COVID-19 was negative. PHYSICAL EXAMINATION: She appears comfortable, in no apparent distress. Vital signs are stable. Blood pressure 106/65, pulse 97, temperature 97.7. HEENT: Examination unremarkable, conjunctivae are pink, sclerae nonicteric oral cavity no lesions. NECK: No JVD or lymph node enlargement. CHEST: Clear to auscultation. HEART: Regular rate and rhythm. ABDOMEN: Soft. Mild tenderness in the left lower quadrant area. The rest of the abdomen was benign. Bowel sounds are positive. No organomegaly. EXTREMITIES: No pedal edema. SKIN: No rashes. NEUROLOGIC: Alert and oriented x3. No focal deficits. LABS: WBC 7.3, hemoglobin 10.3, platelets normal. Basic metabolic panel show potassium 2.9. The rest of the labs are within normal limits. IMPRESSION: 1. Acute onset of nausea, vomiting, and abdominal pain, resolving presently on Protonix as well as antiemetics and doing better. COVID-19 infection negative. 2. Longstanding history of Crohn's disease, status post subtotal colectomy with ileorectal anastomosis done in December of 2017, now with chronic proctitis, maintained on Humira 40 mg to 2 weeks. Last dose was a week ago, now presents with bleeding and diarrhea for the last few days. 3. Chronic migraine headaches. RECOMMENDATIONS: 1. Start her on Solu-Medrol 20 mg q.8 hours. 2. Continue Protonix 40 mg daily. 3. Advance diet as tolerated. 4. Antiemetics as needed. 5. Use Tylenol and Toradol for chronic headaches. 6. Will follow with you closely. Thank you for this consultation. MMODL / IJN: [id number] /
--- NOTE | 2019-07-08 17:44 | P.PN ---
Progress Note - Text Progress Note Date: 07/08/19 Chief Complaint: Abdominal pain History of presenting complaint: This is a pleasant 33-year-old patient of Dr. saxena. Patient's senior programmer is Dr. French Willson. Diagnosed Crohn's disease 12 years ago. Status post subtotal colectomy with ileorectal anastomosis at [facility] 2 years ago. Patient is on Humira gets it every 2 weeks. Normally patient has about 10 bowel movements a day. Occasionally gets blood in there. About 2 weeks ago finished a course of vancomycin for C. diff colitis. Other chronic stable medical conditions include fibromyalgia for which she takes Lyrica endometriosis and ADHD for which she takes Adderall. Patient started of increasing abdominal pain diffuse with vomiting yesterday. No fever no chills. Still having frequency of bowel movements. Patient being admitted for the same. No respiratory symptoms. Admitted with-flareup of Crohn's colitis. Today-is a bit tired. Some decreasing abdominal pain. Had slight blood in the stool. Loose stools. On IV Solu-Medrol Review of systems: Was done for constitutional, cardiovascular, GI, pulmonary. relevant finding as above Active Medications Acetaminophen (Tylenol Tab) 650 mg PO Q6HR PRN PRN Reason: Mild Pain or Fever > 100.5 Last Admin: 07/07/19 19:17 Dose: 650 mg Documented by: Al Hydroxide/Mg Hydroxide (Maalox) 15 ml PO Q6HR PRN PRN Reason: Indigestion Sodium Chloride (Saline 0.9%) 1,000 mls @ 100 mls/hr IV .Q10H [facility] Last Admin: 07/08/19 08:10 Dose: 100 mls/hr Documented by: Ketorolac Tromethamine (Toradol) 15 mg IVP ONCE PRN PRN Reason: Breakthrough Pain Stop: 07/12/19 03:52 Last Admin: 07/08/19 04:00 Dose: 15 mg Documented by: Methylprednisolone Sodium Succinate (Solu-Medrol) 20 mg IV Q8HR [facility] Last Admin: 07/08/19 16:31 Dose: 20 mg Documented by: Naloxone HCl (Narcan) 0.2 mg IV Q2M PRN PRN Reason: Opioid Reversal Patient's Own ( Adalimumab [Humira( Cf) Pen] 40 Mg) 40 mg SQ Q14D [facility] Patient's Own ( Dextroamphetamine/Amphetamine [ Adderall Xr] 30 Mg) 30 mg PO DAILY [facility] Last Admin: 07/08/19 08:04 Dose: Not Given Documented by: Ondansetron HCl (Zofran) 4 mg IVP Q8HR PRN PRN Reason: Nausea And Vomiting Pantoprazole Sodium (Protonix) 40 mg PO AC-BID [facility] Last Admin: 07/08/19 16:31 Dose: 40 mg Documented by: Potassium Chloride (K-Dur 20) 20 meq PO BID [facility] Last Admin: 07/08/19 08:09 Dose: 20 meq Documented by: Pregabalin (Lyrica) 75 mg PO BID PRN PRN Reason: Pain Last Admin: 07/08/19 01:35 Dose: 75 mg Documented by: Promethazine HCl (Phenergan) 12.5 mg PO Q6HR PRN PRN Reason: Nausea And Vomiting Physical examination: VITAL SIGNS: 97.7, 97, 16, 106/65, 99% on room air GENERAL: Laying in bed, tired EYES: Pupils equal. Conjunctiva normal. HEENT: External appearance of nose and ears normal, oral cavity grossly normal. NECK: JVD not raised; masses not palpable. HEART: First and second heart sounds are normal; no edema. LUNGS: Respiratory rate normal; clear to auscultation. ABDOMEN: Soft, mild diffuse tenderness, no guarding or rigidity, liver spleen not palpable, no masses palpable. PSYCH: Alert and oriented x3; mood and affect normal. INVESTIGATIONS, reviewed in the clinical context: White count 7.3 hemoglobin 10.3 potassium 2.9 creatinine 0.53 albumin 2.9 Previous testing White count 13.3 hemoglobin 13 platelets 299 potassium 3.7 creatinine 0.65 Stool for C. diff negative. Colitis PCR, influenza type A type B both negative Abdominal x-ray-no specific Assessment: -Acute flareup of Crohn's colitis-history of subtotal colectomy with ileal colonic anastomosis. Patient chronically does take Humira -Chronic fibromyalgia -ADHD -Leukocytosis -Hypoalbuminemia-acute phase reactant -Severe hypokalemia from diarrhea -Normocytic anemia due to chronic Crohn's colitis Plan: Patient is on IV Solu-Medrol 20 mg every 8. That was advanced by GI. Continue with IV fluids. Lovenox held up because of some bleeding. Discussed with patient. Encouraged to be out of bed. Replace potassium
[2019-07-08] MEDS: ACETAMINOPHEN TAB 325 MG TAB PO PRN (18:11)
[2019-07-08] MEDS ORDERED: LOPERAMIDE 2 MG CAP PO PRN (18:52)
[2019-07-08] MEDS: ONDANSETRON 4 MG/2 ML VIAL IVP PRN (21:41)
[2019-07-09] MEDS: KETOROLAC 30 MG/ML 1 ML VIAL IVP PRN ×2 (00:24→07:06)
[2019-07-09] MEDS: methylPREDNISolone SOD SUCCI 40 MG/ML 1 ML VIAL IV SCH ×2 (00:25→07:02)
[2019-07-09] MEDS: ACETAMINOPHEN TAB 325 MG TAB PO PRN ×2 (04:25→09:48)
[2019-07-09] MEDS: ESCITALOPRAM 20 MG TAB PO SCH ×2 (04:25→06:57)
[2019-07-09] MEDS: SODIUM CHLORIDE 0.9% 1,000 ML IV SCH (04:26)
[2019-07-09] MEDS: DEXTROAMPHETAMINE PO SCH (06:56)
[2019-07-09] MEDS: AMPHETAMINE PO SCH (06:56)
[2019-07-09] MEDS: PANTOPRAZOLE 40 MG TABLET PO SCH (07:02)
[2019-07-09 07:38] VITALS: RESP 15
[2019-07-09 09:04] LABS: Basophils % (A) 0 %; Eosinophils % (A) 0 %; HCT 29.9 % (34.0-46.0); HGB 9.7 gm/dL (11.4-16.0); Lymphocytes # (A) 0.8 k/uL (1.0-4.8); Lymphocytes % (A) 10 %; MCH 26.9 pg (25.0-35.0); MCHC 32.4 g/dL (31.0-37.0); MCV 83.2 fL (80.0-100.0); Mean Platelet Volume 7.7; Monocytes # (A) 0.2 k/uL (0-1.0); Monocytes % (A) 2 %; Neutrophils # (A) 7.3 k/uL (1.3-7.7); Neutrophils % (A) 87 %; Platelet Count 248 k/uL (150-450); RDW 12.4 % (11.5-15.5); WBC 8.5 k/uL (3.8-10.6)
[2019-07-09 09:11] LABS: ALT 11 U/L (4-34); AST 14 U/L (14-36); African American GFR (CKD) >90 (>60 ml/min/1.73 sqM); Alkaline Phosphatase 54 U/L (38-126); Anion Gap 6 mmol/L; Blood Urea Nitrogen 8 mg/dL (7-17); Calcium 8.3 mg/dL (8.4-10.2); Carbon Dioxide 22 mmol/L (22-30); Chloride 111 mmol/L (98-107); Glucose 137 mg/dL (74-99); Non-African American GFR(CKD) >90 (>60 ml/min/1.73 sqM); Sodium 139 mmol/L (137-145); Total Bilirubin <0.1 mg/dL (0.2-1.3); Total Protein 5.6 g/dL (6.3-8.2)
[2019-07-09] MEDS: ONDANSETRON 4 MG/2 ML VIAL IVP PRN (09:48)
[2019-07-09 14:07] VITALS: BP 125/69; PULSE 85; TEMP 98.5
--- NOTE | 2019-07-09 15:42 | PN ---
PROGRESS NOTE DATE OF SERVICE: 07/09/2019 Patient is a 33-year-old pleasant white female admitted to the hospital with acute onset of nausea, vomiting, abdominal pain and bloody diarrhea. She was started on IV Solu-Medrol yesterday with 20 mg q.8 hours. This morning, feeling much better. Her symptoms have improved. She had only 2 bowel movements, doing well. She wants to go home. PHYSICAL EXAMINATION: She appears comfortable. VITAL SIGNS: Stable, blood pressure is 104/57, pulse rate 82, temperature 98. HEENT: Examination unremarkable, conjunctivae are pink, sclerae nonicteric, oral cavity no lesions. NECK: No JVD or lymph node enlargement. CHEST: Clear to auscultation. HEART: Regular rate and rhythm. ABDOMEN: Soft. Bowel sounds are positive. No organomegaly. EXTREMITIES: No pedal edema. SKIN: No rashes. NEUROLOGIC: Alert and oriented x3. No focal deficits. LABS: WBC 8.5, hemoglobin 9.7, platelets normal. Basic metabolic panel is within normal limits. IMPRESSION: 1. Acute onset of nausea, vomiting, resolved. 2. Longstanding history of Crohn's colitis, status post subtotal colectomy with ileorectal anastomosis done in December of 2017 with recurrent proctitis, started on IV Solu-Medrol for bloody diarrhea yesterday and she is feeling much better. Presently on prednisone 30 mg daily and doing well. Also been on Humira 40 mg q.2 weeks for the last one year. RECOMMENDATIONS: 1. Continue with prednisone 30 mg daily and she was advised to taper by 5 mg every week. 2. Antiemetics as needed. 3. Protonix 40 mg daily. 4. Continue Humira as scheduled. 5. She will be seen in the office in 2 weeks. Thank you for this consultation. MMODL / IJN: [id number] /
--- NOTE | 2019-07-09 19:49 | P.DS ---
Providers Date of admission: 07/08/19 09:22 Expected date of discharge: 07/09/19 Attending physician: Ronny Portillo Consults: 07/07/19 07:14 Consult Physician Routine Consulting Provider: Karma Willson Consult Reason/Comments: Crohn's disease Do you want consulting provider notified?: Yes Primary care physician: [facility] Course: Chief Complaint: Abdominal pain History of presenting complaint: This is a pleasant 33-year-old patient of Dr. cr. Patient's product lead is Dr. French Willson. Diagnosed Crohn's disease 12 years ago. Status post subtotal colectomy with ileorectal anastomosis at [facility] 2 years ago. Patient is on Humira gets it every 2 weeks. Normally patient has about 10 bowel movements a day. Occasionally gets blood in there. About 2 weeks ago finished a course of vancomycin for C. diff colitis. Other chronic stable medical conditions include fibromyalgia for which she takes Lyrica endometriosis and ADHD for which she takes Adderall. Patient started of increasing abdominal pain diffuse with vomiting yesterday. No fever no chills. Still having frequency of bowel movements. Patient being admitted for the same. No respiratory symptoms. Admitted with-flareup of Crohn's colitis. Seen by Dr. French Willson. Put on IV Solu- Medrol. Today-feeling much better. Diarrhea frequency is gone down. Abdominal pain is improved. Getting to home. Discussed with Dr. French Willson. Being switched to by mouth prednisone-tapering dose Consultation: Dr. French Willson from GI Physical examination: VITAL SIGNS: 98.5, 85, 15, 125/69, 97% room air GENERAL: Laying in bed, tired EYES: Pupils equal. Conjunctiva normal. HEENT: External appearance of nose and ears normal, oral cavity grossly normal. NECK: JVD not raised; masses not palpable. HEART: First and second heart sounds are normal; no edema. LUNGS: Respiratory rate normal; clear to auscultation. ABDOMEN: Soft, minimal tenderness, no guarding or rigidity, liver spleen not palpable, no masses palpable. PSYCH: Alert and oriented x3; mood and affect normal. INVESTIGATIONS, reviewed in the clinical context: White count 8.5 hemoglobin 9.7 percussion 4.0 creatinine 0.52 Previous testing White count 13.3 hemoglobin 13 platelets 299 potassium 3.7 creatinine 0.65 Stool for C. diff negative. Colitis PCR, influenza type A type B both negative Abdominal x-ray-no specific Assessment: -Acute flareup of Crohn's colitis-history of subtotal colectomy with ileal colonic anastomosis. Patient chronically does take Humira -Chronic fibromyalgia -ADHD -Leukocytosis -Hypoalbuminemia-acute phase reactant -Severe hypokalemia from diarrhea -Normocytic anemia due to chronic Crohn's colitis -Hypoalbuminemia-acute disease reactant Disposition: Home Patient Condition at Discharge: Stable Plan - Discharge Summary Discharge Rx Participant: Yes New Discharge Prescriptions: New predniSONE 10 mg PO DAILY #74 tab Continue Pregabalin [Lyrica] 75 mg PO BID PRN PRN Reason: Pain Omeprazole [PriLOSEC] 40 mg PO DAILY Dextroamphetamine/Amphetamine [Adderall Xr] 30 mg PO DAILY Adalimumab [Humira(Cf) Pen] 40 mg SQ Q14D Discharge Medication List Adalimumab [Humira(Cf) Pen] 40 mg SQ Q14D 07/07/19 [History] Dextroamphetamine/Amphetamine [Adderall Xr] 30 mg PO DAILY 07/07/19 [History] Omeprazole [PriLOSEC] 40 mg PO DAILY 07/07/19 [History] Pregabalin [Lyrica] 75 mg PO BID PRN 07/07/19 [History] predniSONE 10 mg PO DAILY #74 tab 07/09/19 [Rx] Follow up Appointment(s)/Referral(s): Kamra Willson MD [STAFF PHYSICIAN] - 10 Days (Office closed. Please call Friday for your follow-up. Thank you.) Messi Cr MD [Primary Care Provider] - 07/16/19 9:00 am ( ) Patient Instructions/Handouts: Acute Abdominal Pain (DC) Activity/Diet/Wound Care/Special Instructions: Lexapro is not a new medication-patient takes it at home Soft bland diet CBC/BMP-3 days Discharge Disposition: HOME SELF-CARE
[2019-07-16] MEDS ORDERED: ADALIMUMAB 40 MG SQ SCH (12:00)
== END 2019-07-09 15:38 | disposition home or self-care (01) | DRG 387 ==
LOC: EC 03:11 → 5NMEDONC 07:13 → 4SSUR 10:37 → OBSVTOIN 07-08 09:22
PROVIDERS: ADMIT Hospitalist; ATTEND Hospitalist
DX: K50.10 Crohn's disease of large intestine without complications (principal); F17.200 Nicotine dependence, unspecified, uncomplicated; E87.6 Hypokalemia; F90.9 Attention-deficit hyperactivity disorder, unspecified type; G43.909 Migraine, unspecified, not intractable, without status migrainosus; M19.90 Unspecified osteoarthritis, unspecified site; E88.09 Other disorders of plasma-protein metabolism, not elsewhere classified; N80.9 Endometriosis, unspecified; D64.9 Anemia, unspecified; F12.90 Cannabis use, unspecified, uncomplicated; Z20.828 Contact with and (suspected) exposure to other viral communicable diseases; M79.7 Fibromyalgia; Z90.89 Acquired absence of other organs; Z88.6 Allergy status to analgesic agent; Z88.1 Allergy status to other antibiotic agents; Z88.5 Allergy status to narcotic agent; Z88.8 Allergy status to other drugs, medicaments and biological substances; Z98.890 Other specified postprocedural states; Z90.49 Acquired absence of other specified parts of digestive tract; Z98.51 Tubal ligation status; Z86.19 Personal history of other infectious and parasitic diseases; Z79.899 Other long term (current) drug therapy
CPT/HCPCS: 36415; 74018; 80053; 81001; 81025; 82150; 82272; 83690; 85025; 85652; 86140; 87045; 87046; 87324; 87502; 87635; 93005; 96361; 96365; 96375; 99285

== ENCOUNTER → 2019-08-11 | Outpatient (CLI) | payer OTHER ==
--- NOTE | 2019-08-12 08:23 | MM ---
Reason for exam: clinical finding. History: Patient history of other cancer. Took hormonal contraceptives for 3 years. Physical Findings: Nurse did not find any significant physical abnormalities on exam. MG Diagnostic Mammo w CAD CAITIE Bilateral CC, MLO, and XCCL view(s) were taken. The breast tissue is extremely dense which could obscure a lesion on mammography. There is a 1.5cm mass of the right upper inner quadrant at posterior depth. Ultrasound will be performed. There is no discrete abnormality on the left. These results were verbally communicated with the patient and result sheet given to the patient on 08/11/19. ASSESSMENT: Incomplete: need additional imaging evaluation, BI-RAD 0 RECOMMENDATION: Ultrasound of the right breast. (nipple discharge)
--- NOTE | 2019-08-12 08:26 | USB ---
Reason for exam: additional evaluation requested from abnormal screening. History: Patient history of other cancer. Took hormonal contraceptives for 3 years. US Breast RT Technologist: Katharina Dunn Right complete breast ultrasound includes all four quadrants, the retroareolar region and axilla. Finding demonstrates a 1.2 x 1.4 x 0.9cm solid lesion at 1 o'clock, probable fibroadenoma as some post enhancement and smooth boarders. These results were verbally communicated with the patient and result sheet given to the patient on 08/11/19. ASSESSMENT: Probably benign, BI-RAD 3 RECOMMENDATION: Surgical consultation of the right breast. Called Dr. Cr's office with mammographic findings and has scheduled an appointment for the patient for 08/19/19 at 3:[address] Beltrán. PRELIMINARY REPORT CALLED AND FAXED TO DR. BELTRÁN ON 08/12/19. Ultrasound of the right breast in 6 months. Manage on a clinical basis with regard to nipple discharge.
== END | disposition home or self-care (01) ==
LOC: RADMAMWWP 11:18
PROVIDERS: ATTEND Family Medicine
DX: N64.4 Mastodynia (principal); N64.52 Nipple discharge; R92.8 Other abnormal and inconclusive findings on diagnostic imaging of breast
CPT/HCPCS: 77066

== ENCOUNTER → 2019-08-19 | Outpatient (CLI) | payer OTHER ==
[2019-08-19 15:24] VITALS: BP 117/80; PULSE 102; RESP 18; TEMP 98.5
--- NOTE | 2019-08-19 16:10 | P.GSHP ---
History of Present Illness H&P Date: 08/19/19 Chief Complaint: right breast nipple discharge Umm is a 33 -year-old white female with a complaint of bilateral yellow colored nipple discharge seen in consultation for DR. Cr. This discharge started over the past year, it has stoppedon the left side and on the right side only occurs with pressure. This is not cyclical, she had a uterine ablation in 2016 and does not have menstrual periods. She complains of right breast tenderness in the upper outer quadrant area for the past month. 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 Bilateral mammogram performed on revealed a 1.5 cm mass in the right upper inner quadrant posterior depth. An ultrasound was performed and the lesion corresponding to that site and size was noted which is consistent with a fibroadenoma. This is felt to be benign BIRADS 3. She states her breasts are lumpy but this did not feel any dominant masses or nodules in either breast at this time. She is not having any bloody nipple discharge. She has no history of any trauma or infection in the breast. She has not had any breast biopsies in the past. Caffeine: 16 OZ Mtn Dew/day smoke: 1/PPweek stopped 1 year ago; she is not exposed to second hand smoke chocolate: weekly hormones: none Family History: 1. paternal grandfather: lung and liver cancer 2. paternal great grandmother: lung cancer 3. maternal grandfather: skin cancer 4. patient pre-cervical cancer Hormonal Cancer: menarche: 15 1 miscarrage, and twins; breast fed: no, age at first : 19 no periods secondary to uterine ablation, patient has endometriosis BCP: 1 year not now hormones: none Surgical History: 1. uterine ablation 2. laproscopic surgies for endometriosis 3. tubaligation 4. 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 tonsil/adenoids 6. tubes in ears Medical History: 1. chroans disease 2. fibromyalgia 3. endometriosis 4. spondolarthritis 5. raynauds 6. chronic midline low back pain 7. GERD 8. anxiety Social History: smoke: stopped 1 year ago alcohol: none drugs: Marijuana occasionally - Constitutional Comment: ? sleep apnea Constitutional: Reports sweats - EENT Comment: wears glasses/light sensitivity Eyes: bilateral blurred vision, denies pain Ears: deny: decreased hearing, tinnitus Ears, nose, mouth and throat: Reports headache, Denies sore throat - Breasts Breasts: bilateral: as per HPI - Cardiovascular Cardiovascular: Denies chest pain, Denies shortness of breath - Respiratory Respiratory: Denies cough, Denies 7 - Gastrointestinal Comment: chroans colitis, GERD - Genitourinary (Female) Genitourinary: Denies dysuria, Denies hematuria - Menstruation Menstruation: Reports as per HPI, Reports amenorrhea - Musculoskeletal Comment: Fibromyalgia, positive ALBA "speckled pattern" - Integumentary Integumentary: Reports rash, Denies pruritus - Neurological Comment: Raynauds syndrome Neurological: Reports numbness, Denies weakness - Psychiatric Psychiatric: Reports anxiety - Endocrine Endocrine: Reports fatigue, Reports weight change - Hematologic/Lymphatic Comment: none Hematologic/Lymphatic: Reports easy bruising - Allergic/Immunologic Allergic/Immunologic: Reports as per HPI Past Medical History Past Medical History: Fibromyalgia Additional Past Medical History / Comment(s): ulcerative colitis, endometriosis, arthritis History of Any Multi-Drug Resistant Organisms: None Reported Past Surgical History: Adenoidectomy, Bowel Resection, Ear Surgery, Tonsillectomy, Tubal Ligation, Uterine Ablation Additional Past Surgical History / Comment(s): colon resection Past Psychological History: No Psychological Hx Reported Smoking Status: Former smoker Past Alcohol Use History: None Reported Past Drug Use History: None Reported Medications and Allergies Home Medications Medication Instructions Recorded Confirmed Type Adalimumab [Humira(Cf) Pen] 40 mg SQ Q14D 07/07/19 08/19/19 History Dextroamphetamine/Amphetamine 30 mg PO DAILY 07/07/19 08/19/19 History [Adderall Xr] Omeprazole [PriLOSEC] 40 mg PO DAILY 07/07/19 08/19/19 History Pregabalin [Lyrica] 75 mg PO BID PRN 07/07/19 08/19/19 History predniSONE 40 mg PO DAILY 08/19/19 08/19/19 History Allergies Allergy/AdvReac Type Severity Reaction Status Date / Time azathioprine [From Imuran] Allergy Swelling Verified 08/19/19 15:17 caffeine Allergy Unknown Verified 08/19/19 15:17 [From Excedrin Migraine] hypochlorous acid Allergy Swelling Verified 08/19/19 15:17 [From Levicyn Antipruritic] morphine Allergy Rash/Hives Verified 08/19/19 15:17 prochlorperazine Allergy Confusion Verified 08/19/19 15:17 [From Compazine] sodium chloride Allergy Swelling Verified 08/19/19 15:17 [From Levicyn Antipruritic] sodium hypochlorite solution Allergy Swelling Verified 08/19/19 15:17 [From Levicyn Antipruritic] sodium magnesium Allergy Swelling Verified 08/19/19 15:17 fluorosilicate [From Levicyn Antipruritic] sodium phosphate Allergy Swelling Verified 08/19/19 15:17 [From Levicyn Antipruritic] Surgical - Exam Vital Signs Temp Pulse Resp BP Pulse Ox 98.5 F 102 H 18 117/80 100 08/19/19 15:03 08/19/19 15:03 08/19/19 15:03 08/19/19 15:03 08/19/19 15:03 BMI 26 - General well developed, well nourished, no distress - Eyes normal ocular movement - ENT no hearing loss, no congestion - Neck no masses, trachea midline - Respiratory normal respiratory effort, clear to auscultation - Cardiovascular Rhythm: regular Heart Sounds: normal: S1, S2 - Abdomen Abdomen: soft, non tender, no guarding, no rigid, no rebound - Integumentary normal turgor rash over back/left lateral leg - Neurologic no disoriented, no combative - Musculoskeletal normal gait, normal posture - Psychiatric oriented to time, oriented to person, oriented to place, speech is normal, memory intact breast exam: BRA 34B inspection: A nipple inversion, no nipple discharge on examination today Palpation: Right breast: Multi-positional exam fibrocystic changes, no dominant masses or nodules of concern to warrant biopsy Right axilla: No adenopathy of concern Left breast: Multi-positional exam no dominant mass or nodules of concern fibrocystic changes Left axilla: No adenopathy of concern Particular attention was made in the right breast in the area of probable fibroadenoma which is described on ultrasound is not palpated Results mammogram and ultrasound reviewed with DR. Spears Assessment and Plan Assessment: Impression: 1. Bilateral nipple discharge/believed to be fibrocystic in nature 2. Fibrocystic breast changes 3. Crohn's colitis 4. Fibromyalgia 6. Intermittent rashes 7. drinks mountain dew 8. GERD 9. told + ALBA/ conflicting 10. Raynauds 11. muscles week 12. Breast pain believed to be related to fibrocystic disease Plan: 1. nipple discharge most likely related to fibrocystic disease 2. no need for breast biopsy at this time 3. stop caffeine intake to decrease breast pain and fibrocystic nipple discharge 4. consider rheumatology/immunology appointment 5. appointment in 4 months 6. ultrasound of the right breast in one year to follow probable fibroadenoma, to come sooner if any concerns CC: Dr. Cr encounter 35 minutes,> 50% of time in planning and counselling Time with Patient: Greater than 30
== END | disposition home or self-care (01) ==
LOC: WWCWWP 15:00
PROVIDERS: ATTEND Surgery
DX: Z53.9 Procedure and treatment not carried out, unspecified reason (principal)

== ENCOUNTER 2019-10-15 23:26 | Emergency (ER) | payer OTHER ==
--- NOTE | 2019-10-16 00:20 | ED ---
Abdominal Pain HPI - General Chief Complaint: Abdominal Pain Stated Complaint: Abdominal swelling Time Seen by Provider: 10/15/19 23:44 Source: patient Mode of arrival: ambulatory Limitations: no limitations - History of Present Illness MD Complaint: abdominal pain -: month(s) Location: diffuse Radiation: none Migration to: no migration Severity: mild Quality: fullness Consistency: constant Improves With: nothing Worsens With: nothing Associated Symptoms: denies other symptoms - Related Data Home Medications Medication Instructions Recorded Confirmed Adalimumab [Humira(Cf) Pen] 40 mg SQ Q14D 07/07/19 08/19/19 Dextroamphetamine/Amphetamine 30 mg PO DAILY 07/07/19 08/19/19 [Adderall Xr] Omeprazole [PriLOSEC] 40 mg PO DAILY 07/07/19 08/19/19 Pregabalin [Lyrica] 75 mg PO BID PRN 07/07/19 08/19/19 predniSONE 40 mg PO DAILY 08/19/19 08/19/19 Allergies Allergy/AdvReac Type Severity Reaction Status Date / Time azathioprine [From Imuran] Allergy Swelling Verified 10/15/19 23:41 caffeine Allergy Unknown Verified 10/15/19 23:41 [From Excedrin Migraine] hypochlorous acid Allergy Swelling Verified 10/15/19 23:41 [From Levicyn Antipruritic] morphine Allergy Rash/Hives Verified 10/15/19 23:41 prochlorperazine Allergy Confusion Verified 10/15/19 23:41 [From Compazine] sodium chloride Allergy Swelling Verified 10/15/19 23:41 [From Levicyn Antipruritic] sodium hypochlorite solution Allergy Swelling Verified 10/15/19 23:41 [From Levicyn Antipruritic] sodium magnesium Allergy Swelling Verified 10/15/19 23:41 fluorosilicate [From Levicyn Antipruritic] sodium phosphate Allergy Swelling Verified 10/15/19 23:41 [From Levicyn Antipruritic] Review of Systems ROS Statement: Those systems with pertinent positive or pertinent negative responses have been documented in the HPI. ROS Other: All systems not noted in ROS Statement are negative. Constitutional: Denies: fever, chills Respiratory: Denies: cough, dyspnea Cardiovascular: Denies: chest pain, palpitations, edema, syncope Gastrointestinal: Reports: as per HPI. Denies: nausea, vomiting, diarrhea, constipation, melena, hematochezia Genitourinary: Denies: dysuria, frequency, hematuria Musculoskeletal: Denies: back pain Skin: Denies: rash Neurological: Denies: headache, weakness, numbness Past Medical History Past Medical History: Fibromyalgia Additional Past Medical History / Comment(s): ulcerative colitis, endometriosis, arthritis History of Any Multi-Drug Resistant Organisms: None Reported Past Surgical History: Adenoidectomy, Bowel Resection, Ear Surgery, Tonsillectomy, Tubal Ligation, Uterine Ablation Additional Past Surgical History / Comment(s): colon resection Past Psychological History: No Psychological Hx Reported Past Alcohol Use History: None Reported Past Drug Use History: None Reported General Exam Limitations: no limitations General appearance: alert, in no apparent distress Head exam: Present: atraumatic, normocephalic Eye exam: Present: normal appearance. Absent: scleral icterus, conjunctival injection ENT exam: Present: mucous membranes dry Neck exam: Present: normal inspection Respiratory exam: Present: normal lung sounds bilaterally. Absent: respiratory distress, wheezes, rales, rhonchi, stridor Cardiovascular Exam: Present: regular rate, normal rhythm, normal heart sounds. Absent: systolic murmur, diastolic murmur, rubs, gallop GI/Abdominal exam: Present: soft, normal bowel sounds, hernia (There appears to be a small umbilical hernia, non-tender no incarceration.). Absent: distended, tenderness, guarding, rebound, rigid, mass, pulsatile mass Extremities exam: Present: normal inspection, normal capillary refill. Absent: pedal edema, calf tenderness Back exam: Present: normal inspection. Absent: CVA tenderness (R), CVA tenderness (L) Neurological exam: Present: alert Skin exam: Present: warm, dry, intact, normal color. Absent: rash Course Vital Signs 10/15/19 10/16/19 23:37 01:35 Temperature 98.4 F 98.1 F Pulse Rate 105 H 95 Respiratory 20 16 Rate Blood Pressure 117/83 123/83 O2 Sat by Pulse 99 98 Oximetry Medical Decision Making - Medical Decision Making Patient is 34-year-old woman with months of diffuse abdominal pains. Her exam is benign and the workup here is not revealing abnormality. The patient has had multiple previous CTs related to Crohn's disease and in light of this we will hold further radiation exposure. She states she does have MR-E scheduled for approximately one month from now. I did also recommend following with gynecology to see about ultrasound related to the ovaries. - Lab Data Result diagrams: 10/16/19 00:28 10/16/19 00:28 Lab Results 10/16/19 10/16/19 10/16/19 Range/Units 00:28 00:28 00:40 WBC 10.4 (3.8-10.6) k/uL RBC 4.61 (3.80-5.40) m/uL Hgb 12.1 (11.4-16.0) gm/dL Hct 37.9 (34.0-46.0) % MCV 82.1 (80.0-100.0) fL MCH 26.3 (25.0-35.0) pg MCHC 32.0 (31.0-37.0) g/dL RDW 14.4 (11.5-15.5) % Plt Count 327 (150-450) k/uL Neutrophils % 53 % Lymphocytes % 33 % Monocytes % 7 % Eosinophils % 3 % Basophils % 1 % Neutrophils # 5.6 (1.3-7.7) k/uL Lymphocytes # 3.4 (1.0-4.8) k/uL Monocytes # 0.7 (0-1.0) k/uL Eosinophils # 0.4 (0-0.7) k/uL Basophils # 0.1 (0-0.2) k/uL Sodium 137 (137-145) mmol/L Potassium 3.7 (3.5-5.1) mmol/L Chloride 107 (98-107) mmol/L Carbon Dioxide 24 (22-30) mmol/L Anion Gap 6 mmol/L BUN 18 H (7-17) mg/dL Creatinine 0.91 (0.52-1.04) mg/dL Est GFR (CKD-EPI)AfAm >90 (>60 ml/min/1.73 sqM) Est GFR (CKD-EPI)NonAf 84 (>60 ml/min/1.73 sqM) Glucose 99 (74-99) mg/dL Calcium 9.3 (8.4-10.2) mg/dL Total Bilirubin 0.6 (0.2-1.3) mg/dL AST 27 (14-36) U/L ALT 19 (4-34) U/L Alkaline Phosphatase 59 (38-126) U/L C-Reactive Protein <5.0 (<10.0) mg/L Total Protein 7.3 (6.3-8.2) g/dL Albumin 4.5 (3.5-5.0) g/dL Amylase 35 (30-110) U/L Lipase 193 (23-300) U/L Urine Color Urine Appearance (Clear) Urine pH (5.0-8.0) Ur Specific Humphrey (1.001-1.035) Urine Protein (Negative) Urine Glucose (UA) (Negative) Urine Ketones (Negative) Urine Blood (Negative) Urine Nitrite (Negative) Urine Bilirubin (Negative) Urine Urobilinogen (<2.0) mg/dL Ur Leukocyte Esterase (Negative) Urine RBC (0-5) /hpf Urine WBC (0-5) /hpf Ur Squamous Epith Cells (0-4) /hpf Urine Bacteria (None) /hpf Hyaline Casts (0-2) /lpf Urine Mucus (None) /hpf Urine HCG, Qual Not Detected (Not Detectd) 10/16/19 Range/Units 00:41 WBC (3.8-10.6) k/uL RBC (3.80-5.40) m/uL Hgb (11.4-16.0) gm/dL Hct (34.0-46.0) % MCV (80.0-100.0) fL MCH (25.0-35.0) pg MCHC (31.0-37.0) g/dL RDW (11.5-15.5) % Plt Count (150-450) k/uL Neutrophils % % Lymphocytes % % Monocytes % % Eosinophils % % Basophils % % Neutrophils # (1.3-7.7) k/uL Lymphocytes # (1.0-4.8) k/uL Monocytes # (0-1.0) k/uL Eosinophils # (0-0.7) k/uL Basophils # (0-0.2) k/uL Sodium (137-145) mmol/L Potassium (3.5-5.1) mmol/L Chloride (98-107) mmol/L Carbon Dioxide (22-30) mmol/L Anion Gap mmol/L BUN (7-17) mg/dL Creatinine (0.52-1.04) mg/dL Est GFR (CKD-EPI)AfAm (>60 ml/min/1.73 sqM) Est GFR (CKD-EPI)NonAf (>60 ml/min/1.73 sqM) Glucose (74-99) mg/dL Calcium (8.4-10.2) mg/dL Total Bilirubin (0.2-1.3) mg/dL AST (14-36) U/L ALT (4-34) U/L Alkaline Phosphatase (38-126) U/L C-Reactive Protein (<10.0) mg/L Total Protein (6.3-8.2) g/dL Albumin (3.5-5.0) g/dL Amylase (30-110) U/L Lipase (23-300) U/L Urine Color Yellow Urine Appearance Cloudy H (Clear) Urine pH 5.5 (5.0-8.0) Ur Specific Humphrey 1.036 H (1.001-1.035) Urine Protein Trace H (Negative) Urine Glucose (UA) Negative (Negative) Urine Ketones Trace H (Negative) Urine Blood Negative (Negative) Urine Nitrite Negative (Negative) Urine Bilirubin Negative (Negative) Urine Urobilinogen 2.0 (<2.0) mg/dL Ur Leukocyte Esterase Small H (Negative) Urine RBC 1 (0-5) /hpf Urine WBC 3 (0-5) /hpf Ur Squamous Epith Cells 17 H (0-4) /hpf Urine Bacteria Rare H (None) /hpf Hyaline Casts 1 (0-2) /lpf Urine Mucus Moderate H (None) /hpf Urine HCG, Qual (Not Detectd) Disposition Clinical Impression: Abdominal pain Disposition: HOME SELF-CARE Condition: Good Instructions (If sedation given, give patient instructions): Abdominal Pain (ED) Is patient prescribed a controlled substance at d/c from ED?: No Referrals: None,Stated [Primary Care Provider] - 1-2 days
[2019-10-16 00:56] LABS: Basophils # (A) 0.1 k/uL (0-0.2); Basophils % (A) 1 %; Eosinophils # (A) 0.4 k/uL (0-0.7); Eosinophils % (A) 3 %; HCT 37.9 % (34.0-46.0); HGB 12.1 gm/dL (11.4-16.0); Lymphocytes # (A) 3.4 k/uL (1.0-4.8); Lymphocytes % (A) 33 %; MCH 26.3 pg (25.0-35.0); MCV 82.1 fL (80.0-100.0); Mean Platelet Volume 7.1; Monocytes # (A) 0.7 k/uL (0-1.0); Monocytes % (A) 7 %; Neutrophils # (A) 5.6 k/uL (1.3-7.7); Neutrophils % (A) 53 %; Platelet Count 327 k/uL (150-450); RBC 4.61 m/uL (3.80-5.40); RDW 14.4 % (11.5-15.5); WBC 10.4 k/uL (3.8-10.6)
[2019-10-16 01:14] LABS: ALT 19 U/L (4-34); AST 27 U/L (14-36); African American GFR (CKD) >90 (>60 ml/min/1.73 sqM); Albumin 4.5 g/dL (3.5-5.0); Alkaline Phosphatase 59 U/L (38-126); Amylase 35 U/L (30-110); Anion Gap 6 mmol/L; Blood Urea Nitrogen 18 mg/dL (7-17); Calcium 9.3 mg/dL (8.4-10.2); Carbon Dioxide 24 mmol/L (22-30); Chloride 107 mmol/L (98-107); Glucose 99 mg/dL (74-99); Non-African American GFR(CKD) 84 (>60 ml/min/1.73 sqM); Potassium 3.7 mmol/L (3.5-5.1); Sodium 137 mmol/L (137-145); Total Bilirubin 0.6 mg/dL (0.2-1.3); Total Protein 7.3 g/dL (6.3-8.2)
[2019-10-16 01:16] LABS: C Reactive Protein <5.0 mg/L (<10.0)
[2019-10-16 01:19] LABS: Appearance,Urine Cloudy (Clear); Bacteria,Urine Rare /hpf; Bilirubin,Urine Negative (Negative); Blood,Urine Negative (Negative); Color,Urine Yellow; Glucose,Urine (UA) Negative (Negative); Hyaline Casts,Urine 1 /lpf (0-2); Ketones,Urine Trace (Negative); Leukocyte Esterase,Urine Small (Negative); Mucus,Urine Moderate /hpf; Nitrite,Urine Negative (Negative); PH, Urine 5.5 (5.0-8.0); Protein,Urine Trace (Negative); RBC,Urine 1 /hpf (0-5); Specific Gravity,Urine 1.036 (1.001-1.035); Squamous Epithelial Cell,Urine 17 /hpf (0-4); WBC,Urine 3 /hpf (0-5)
[2019-10-16 01:37] VITALS: BP 123/83; PULSE 95; RESP 16; TEMP 98.1
== END 2019-10-16 02:09 | disposition home or self-care (01) ==
LOC: EC 23:26
DX: R10.9 Unspecified abdominal pain (principal); M79.7 Fibromyalgia; Z79.899 Other long term (current) drug therapy; Z79.52 Long term (current) use of systemic steroids; Z88.8 Allergy status to other drugs, medicaments and biological substances; Z88.5 Allergy status to narcotic agent; Z88.6 Allergy status to analgesic agent; Z90.49 Acquired absence of other specified parts of digestive tract; Z87.19 Personal history of other diseases of the digestive system
CPT/HCPCS: 36415; 80053; 81001; 81025; 82150; 83690; 85025; 86140; 99284

== ENCOUNTER 2019-12-21 18:50 | Emergency (ER) | payer OTHER ==
[2019-12-21 19:03] VITALS: TEMP 97.9
--- NOTE | 2019-12-21 19:23 | ED ---
General Adult HPI - General Chief complaint: Recheck/Abnormal Lab/Rx Stated complaint: POSS BLOOD CLOT Time Seen by Provider: 12/21/19 19:06 Source: patient Mode of arrival: wheelchair Limitations: no limitations - History of Present Illness Initial comments: Dictation was produced using [employer] dictation software. please excuse any grammatical, word or spelling errors. This patient was cared for during a federal and state declared state of [facility] secondary to Covid 19 Chief Complaint: 34-year-old female presents with epigastric abdominal tenderness, dyspnea and diarrhea. History of Present Illness: 34-year-old female she presents today with multiple complaints. Patient states she messaged her primary care physician over the [facility] portal. She was instructed to come to the emergency department for concern of DVT or pulmonary embolus. Patient has multiple comorbidities including fibromyalgia, ulcerative colitis. States that over the last week or so she's been feeling short of breath with worsening epigastric pain. She can tolerate oral intake. Denies any fever, chills or night sweats. Denies any nausea vomiting. Denies any chest pain. She denies any calf pain or medial thigh pain. No history of DVT or PE. The ROS documented in this emergency department record has been reviewed and confirmed by me. Those systems with pertinent positive or negative responses have been documented in the HPI. All other systems are other negative and/or noncontributory. PHYSICAL EXAM: General Impression: Alert and oriented x3, not in acute distress HEENT: Normocephalic atraumatic, extra-ocular movements intact, pupils equal and reactive to light bilaterally, mucous membranes moist. Cardiovascular: Heart regular rate and rhythm Chest: Able to complete full sentences, no retractions, no tachypnea Abdomen: abdomen soft, mild palpatory tenderness in the bilateral inferior quadrants, non-distended, no organomegaly Musculoskeletal: Pulses present and equal in all extremities, no peripheral edema Motor: no focal deficits noted Neurological: CN II-XII grossly intact, no focal motor or sensory deficits noted Skin: Intact with no visualized rashes Psych: Normal affect and mood ED course: 34-year-old female presents with multiple complaints. Her complaints include shortness breath, possible DVT, epigastric abdominal pain as upon arrival shows heart rate of 102, rest of vital signs within acceptable limits. Patient is not hypoxic. She does not appear dyspneic. I have any symptoms of DVT. Lungs are clear to auscultation bilaterally.Laboratory evaluation obtained. Mild leukocytosis of 12.3. Coag panel is unremarkable. D-dimer 0.29. No concern for pulmonary embolus or DVT. Metabolic panel is un remarkable. Urine hCG is negative. Chest x-ray and abdominal x-ray is nonacute. Computed tomography scan of the abdomen and pelvis was obtained showing no acute processes. Radiology will comment of which she will cortical density which could relate to pyelonephritis. Patientdenies having urine symptoms. UA is clear. Patient will be discharged. About the wedge-shaped abnormality on her CT she is told to follow-up with her PCP regarding this. EKG interpretation: Ventricular rate 89, normal sinus rhythm,. Interval 1:30, QRS 84, QTC 450. No ME prolongation, no QTC prolongation, no ST or T-wave changes noted. EKG compared to 07/09/2019 showing no changes. Overall, this EKG is unremarkable - Related Data Home Medications Medication Instructions Recorded Confirmed Adalimumab [Humira(Cf) Pen] 40 mg SQ Q14D 07/07/19 08/19/19 Dextroamphetamine/Amphetamine 30 mg PO DAILY 07/07/19 08/19/19 [Adderall Xr] Omeprazole [PriLOSEC] 40 mg PO DAILY 07/07/19 08/19/19 Pregabalin [Lyrica] 75 mg PO BID PRN 07/07/19 08/19/19 predniSONE 40 mg PO DAILY 08/19/19 08/19/19 Allergies Allergy/AdvReac Type Severity Reaction Status Date / Time azathioprine [From Imuran] Allergy Swelling Verified 12/21/19 19:04 caffeine Allergy Unknown Verified 12/21/19 19:04 [From Excedrin Migraine] hypochlorous acid Allergy Swelling Verified 12/21/19 19:04 [From Levicyn Antipruritic] morphine Allergy Rash/Hives Verified 12/21/19 19:04 prochlorperazine Allergy Confusion Verified 12/21/19 19:04 [From Compazine] sodium chloride Allergy Swelling Verified 12/21/19 19:04 [From Levicyn Antipruritic] sodium hypochlorite solution Allergy Swelling Verified 12/21/19 19:04 [From Levicyn Antipruritic] sodium magnesium Allergy Swelling Verified 12/21/19 19:04 fluorosilicate [From Levicyn Antipruritic] sodium phosphate Allergy Swelling Verified 12/21/19 19:04 [From Levicyn Antipruritic] Review of Systems ROS Statement: Those systems with pertinent positive or pertinent negative responses have been documented in the HPI. ROS Other: All systems not noted in ROS Statement are negative. Past Medical History Past Medical History: Fibromyalgia Additional Past Medical History / Comment(s): ulcerative colitis, endometriosis, arthritis History of Any Multi-Drug Resistant Organisms: C-DIFF Date of last positivie culture/infection: March 2019 MDRO Source:: stool Past Surgical History: Adenoidectomy, Bowel Resection, Ear Surgery, Tonsillectomy, Tubal Ligation, Uterine Ablation Additional Past Surgical History / Comment(s): colon resection Past Psychological History: No Psychological Hx Reported Smoking Status: Current every day smoker Past Alcohol Use History: None Reported Past Drug Use History: Marijuana General Exam Limitations: no limitations Course Vital Signs 12/21/19 18:57 Temperature 97.9 F Pulse Rate 102 H Respiratory 16 Rate Blood Pressure 123/85 O2 Sat by Pulse 100 Oximetry Medical Decision Making - Lab Data Result diagrams: 12/21/19 19:35 12/21/19 19:35 Lab Results 12/21/19 12/21/19 12/21/19 Range/Units 19:35 19:35 19:35 WBC 12.3 H (3.8-10.6) k/uL RBC 4.72 (3.80-5.40) m/uL Hgb 12.5 (11.4-16.0) gm/dL Hct 39.2 (34.0-46.0) % MCV 83.1 (80.0-100.0) fL MCH 26.6 (25.0-35.0) pg MCHC 32.0 (31.0-37.0) g/dL RDW 14.4 (11.5-15.5) % Plt Count 340 (150-450) k/uL Neutrophils % 85 % Lymphocytes % 10 % Monocytes % 3 % Eosinophils % 1 % Basophils % 0 % Neutrophils # 10.4 H (1.3-7.7) k/uL Lymphocytes # 1.3 (1.0-4.8) k/uL Monocytes # 0.4 (0-1.0) k/uL Eosinophils # 0.1 (0-0.7) k/uL Basophils # 0.0 (0-0.2) k/uL PT 9.7 (9.0-12.0) sec INR 0.9 (<1.2) APTT 21.9 L (22.0-30.0) sec D-Dimer 0.29 (<0.60) mg/L FEU Sodium (137-145) mmol/L Potassium (3.5-5.1) mmol/L Chloride (98-107) mmol/L Carbon Dioxide (22-30) mmol/L Anion Gap mmol/L BUN (7-17) mg/dL Creatinine (0.52-1.04) mg/dL Est GFR (CKD-EPI)AfAm (>60 ml/min/1.73 sqM) Est GFR (CKD-EPI)NonAf (>60 ml/min/1.73 sqM) Glucose (74-99) mg/dL Calcium (8.4-10.2) mg/dL Magnesium (1.6-2.3) mg/dL Total Bilirubin (0.2-1.3) mg/dL AST (14-36) U/L ALT (4-34) U/L Alkaline Phosphatase (38-126) U/L Troponin I (0.000-0.034) ng/mL Total Protein (6.3-8.2) g/dL Albumin (3.5-5.0) g/dL Urine Color Urine Appearance (Clear) Urine pH (5.0-8.0) Ur Specific [place] (1.001-1.035) Urine Protein (Negative) Urine Glucose (UA) (Negative) Urine Ketones (Negative) Urine Blood (Negative) Urine Nitrite (Negative) Urine Bilirubin (Negative) Urine Urobilinogen (<2.0) mg/dL Ur Leukocyte Esterase (Negative) Urine HCG, Qual Not Detected (Not Detectd) 12/21/19 12/21/19 12/21/19 Range/Units 19:35 19:35 19:35 WBC (3.8-10.6) k/uL RBC (3.80-5.40) m/uL Hgb (11.4-16.0) gm/dL Hct (34.0-46.0) % MCV (80.0-100.0) fL MCH (25.0-35.0) pg MCHC (31.0-37.0) g/dL RDW (11.5-15.5) % Plt Count (150-450) k/uL Neutrophils % % Lymphocytes % % Monocytes % % Eosinophils % % Basophils % % Neutrophils # (1.3-7.7) k/uL Lymphocytes # (1.0-4.8) k/uL Monocytes # (0-1.0) k/uL Eosinophils # (0-0.7) k/uL Basophils # (0-0.2) k/uL PT (9.0-12.0) sec INR (<1.2) APTT (22.0-30.0) sec D-Dimer (<0.60) mg/L FEU Sodium 140 (137-145) mmol/L Potassium 4.0 (3.5-5.1) mmol/L Chloride 109 H (98-107) mmol/L Carbon Dioxide 26 (22-30) mmol/L Anion Gap 5 mmol/L BUN 18 H (7-17) mg/dL Creatinine 1.01 (0.52-1.04) mg/dL Est GFR (CKD-EPI)AfAm 85 (>60 ml/min/1.73 sqM) Est GFR (CKD-EPI)NonAf 74 (>60 ml/min/1.73 sqM) Glucose 94 (74-99) mg/dL Calcium 8.8 (8.4-10.2) mg/dL Magnesium 2.2 (1.6-2.3) mg/dL Total Bilirubin 0.3 (0.2-1.3) mg/dL AST 16 (14-36) U/L ALT 13 (4-34) U/L Alkaline Phosphatase 95 (38-126) U/L Troponin I <0.012 (0.000-0.034) ng/mL Total Protein 6.6 (6.3-8.2) g/dL Albumin 4.0 (3.5-5.0) g/dL Urine Color Yellow Urine Appearance Clear (Clear) Urine pH 7.5 (5.0-8.0) Ur Specific [place] 1.031 (1.001-1.035) Urine Protein Trace H (Negative) Urine Glucose (UA) Negative (Negative) Urine Ketones Trace H (Negative) Urine Blood Negative (Negative) Urine Nitrite Negative (Negative) Urine Bilirubin Negative (Negative) Urine Urobilinogen 2.0 (<2.0) mg/dL Ur Leukocyte Esterase Negative (Negative) Urine HCG, Qual (Not Detectd) Disposition Clinical Impression: Abdominal pain Disposition: HOME SELF-CARE Condition: Good Instructions (If sedation given, give patient instructions): Abdominal Pain (ED) Is patient prescribed a controlled substance at d/c from ED?: No Referrals: None,Stated [Primary Care Provider] - 1-2 days Time of Disposition: 22:05
[2019-12-21 19:50] LABS: Basophils % (A) 0 %; Eosinophils # (A) 0.1 k/uL (0-0.7); Eosinophils % (A) 1 %; HCT 39.2 % (34.0-46.0); HGB 12.5 gm/dL (11.4-16.0); Lymphocytes # (A) 1.3 k/uL (1.0-4.8); Lymphocytes % (A) 10 %; MCH 26.6 pg (25.0-35.0); MCV 83.1 fL (80.0-100.0); Mean Platelet Volume 6.8; Monocytes # (A) 0.4 k/uL (0-1.0); Monocytes % (A) 3 %; Neutrophils # (A) 10.4 k/uL (1.3-7.7); Neutrophils % (A) 85 %; Platelet Count 340 k/uL (150-450); RBC 4.72 m/uL (3.80-5.40); RDW 14.4 % (11.5-15.5); WBC 12.3 k/uL (3.8-10.6)
[2019-12-21 19:57] LABS: Calcium 8.8 mg/dL (8.4-10.2); Magnesium 2.2 mg/dL (1.6-2.3); Total Bilirubin 0.3 mg/dL (0.2-1.3); Total Protein 6.6 g/dL (6.3-8.2)
--- NOTE | 2019-12-21 20:05 | XR ---
EXAMINATION TYPE: XR abdomen 1V DATE OF EXAM: 12/21/2019 COMPARISON: 01/04/2016 HISTORY: Abdominal pain TECHNIQUE: 2 views upright FINDINGS: There is no sign of intestinal obstruction or pneumoperitoneum. Fecal pattern is normal. Th ere is no sign of a mass. Lung bases are clear. There are no pathologic calcifications over the kidne ys. IMPRESSION: Nonacute abdomen. No change.
--- NOTE | 2019-12-21 20:07 | XR ---
EXAMINATION TYPE: XR chest 2V DATE OF EXAM: 12/21/2019 COMPARISON: NONE HISTORY: Short of breath TECHNIQUE: FINDINGS: Heart and mediastinum are normal. Lungs are clear. Diaphragm is normal. Bony thorax appears normal. IMPRESSION: Normal chest.
[2019-12-21 20:08] LABS: D-Dimer 0.29 mg/L FEU (<0.60); INR 0.9 (<1.2); Partial Thromboplastin Time 21.9 sec (22.0-30.0); Prothrombin Time 9.7 sec (9.0-12.0)
--- NOTE | 2019-12-21 21:37 | CT ---
EXAMINATION TYPE: CT abdomen pelvis w con DATE OF EXAM: 12/21/2019 COMPARISON: 04/08/2019 HISTORY: abdominal pain, nausea CT DLP: 823.8 mGycm Automated exposure control for dose reduction was used. CONTRAST: Performed with IV Contrast, patient injected with 100 mL of Isovue 300. Lung bases are clear. There is no pleural effusion. Heart size is normal. There is no pericardial eff usion. Liver and spleen appear intact. Bile ducts are not dilated. Gallbladder is contracted. Stomach is int act. There is no pancreatic mass. There is no adrenal mass. Kidneys have normal size. There is no hydronephrosis. Ureters are not dilat ed. Delayed images show normal renal excretion. There is 1.3 cm wedge-shaped area of cortical decreas ed enhancement in the posterior left kidney. This is a change compared to old exam. There is 1.5 cm c ortical cyst posterior right kidney. There is no retroperitoneal adenopathy. Bladder distends smoothl y. There is no inguinal hernia. Uterus is anteverted. There is no free fluid in the pelvis. There is 13 mm cyst on the right ovary. A ppendix is not seen. There is no sign of thickened appendix. There are surgical clips involving the r ight colon. There is no mesenteric edema. There is no ascites or free air. There is no bowel obstruction. Lumbar vertebra have normal alignment. Posterior elements are intact. Sacroiliac joints appear intact . Bony pelvis is intact. Hip joints are intact. IMPRESSION: Previous right colon surgery. No bowel obstruction. Wedge-shaped cortical hypodensity posterior left kidney could relate to a focus of pyelonephritis. Th is is a change compared to old exam.
[2019-12-21 21:58] LABS: Appearance,Urine Clear (Clear); Bilirubin,Urine Negative (Negative); Blood,Urine Negative (Negative); Color,Urine Yellow; Glucose,Urine (UA) Negative (Negative); Ketones,Urine Trace (Negative); Leukocyte Esterase,Urine Negative (Negative); Nitrite,Urine Negative (Negative); PH, Urine 7.5 (5.0-8.0); Protein,Urine Trace (Negative); Specific Gravity,Urine 1.031 (1.001-1.035)
[2019-12-21 22:19] VITALS: BP 127/86; PULSE 90; RESP 18
== END 2019-12-21 22:17 | disposition home or self-care (01) ==
LOC: EC 18:50
DX: R10.13 Epigastric pain (principal); R93.422 Abnormal radiologic findings on diagnostic imaging of left kidney; D72.829 Elevated white blood cell count, unspecified; K51.90 Ulcerative colitis, unspecified, without complications; M79.7 Fibromyalgia; M19.90 Unspecified osteoarthritis, unspecified site; F17.200 Nicotine dependence, unspecified, uncomplicated; Z79.899 Other long term (current) drug therapy; Z79.51 Long term (current) use of inhaled steroids; Z88.8 Allergy status to other drugs, medicaments and biological substances; Z91.018 Allergy to other foods; Z88.5 Allergy status to narcotic agent; Z90.49 Acquired absence of other specified parts of digestive tract; Z98.51 Tubal ligation status
CPT/HCPCS: 36415; 93005; 85379; 80053; 83735; 84484; 85025; 85610; 85730; 81003; 81025; 71046; 74018; 74177; 99285; Q9967

== ENCOUNTER → 2020-02-24 | Outpatient (CLI) | payer OTHER ==
[2020-02-24 11:33] VITALS: BP 135/92; PULSE 107; RESP 18; TEMP 98.1
--- NOTE | 2020-02-24 11:46 | P.PN ---
Subjective Progress Note Date: 02/24/20 Principal diagnosis: nipple discharge right Salomon is a 33 -year-old white female with a complaint of bilateral yellow colored nipple discharge seen in consultation for DR. Cr on 08-19-19. This discharge started over the past year, it had stopped on the left side and on the right side only occurred with pressure. This is not cyclical, she had a uterine ablation in 2015 and does not have menstrual periods. She complains of right breast tenderness in the upper outer quadrant area for the past month. 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 Bilateral mammogram performed on revealed a 1.5 cm mass in the right upper inner quadrant posterior depth. An ultrasound was performed and the lesion corresponding to that site and size was noted which is consistent with a fibroadenoma. This is felt to be benign BIRADS 3. She states her breasts are lumpy but this did not feel any dominant masses or nodules in either breast at this time. She is not having any bloody nipple discharge. She has no history of any trauma or infection in the breast. She has not had any breast biopsies in the past. At this time she is not complaining of any masses, lumps, or nodules in her breast for which she is concerned. She continues to have nipple discharge only on the right side in the liver with pressure. She states it is clear or occasionally will be slightly yellow in coloration. She has not had any bloody discharge. She had an ultrasound of her breast on which revealed a 1.2 x 1.4 cm solid lesion at 1:00 and repeat ultrasound was recommended in 6 months. She does not feel this, his father most likely represents a fibroadenoma. Caffeine: 16 OZ Mtn Dew/day; stopped 7 months ago smoke: 1/PPweek stopped 1 year ago; she is not exposed to second hand smoke; continues to smoke chocolate: weekly; stopped 7 months ago hormones: none Family History: 1. paternal grandfather: lung and liver cancer 2. paternal great grandmother: lung cancer 3. maternal grandfather: skin cancer 4. patient pre-cervical cancer Hormonal Cancer: menarche: 15 1 miscarrage, and twins; breast fed: no, age at first : 19 no periods secondary to uterine ablation, patient has endometriosis BCP: 1 year not now hormones: none Surgical History: 1. uterine ablation 2. laproscopic surgies for endometriosis 3. tubaligation 4. 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 tonsil/adenoids 6. tubes in ears Medical History: 1. chroans disease 2. fibromyalgia 3. endometriosis 4. spondolarthritis 5. raynauds 6. chronic midline low back pain; MRI scheduled for 03-05-20 7. GERD 8. anxiety 9. ? adult onset Stills disease but her ferritin is low Social History: smoke: stopped 1 year ago now occasional alcohol: none drugs: Marijuana occasionally - Constitutional Comment: ? sleep apnea Constitutional: Reports sweats - EENT Comment: wears glasses/light sensitivity Eyes: bilateral blurred vision, denies pain Ears: deny: decreased hearing, tinnitus Ears, nose, mouth and throat: Reports headache, Denies sore throat - Breasts Breasts: bilateral: as per HPI - Cardiovascular Cardiovascular: Denies chest pain, Denies shortness of breath - Respiratory Respiratory: Denies cough, - Gastrointestinal Comment: chroans colitis, GERD - Genitourinary (Female) Genitourinary: Denies dysuria, Denies hematuria - Menstruation Menstruation: Reports as per HPI, Reports amenorrhea - Musculoskeletal Comment: Fibromyalgia, positive ALBA "speckled pattern" - Integumentary Integumentary: Reports rash, Denies pruritus - Neurological Comment: Raynauds syndrome Neurological: Reports numbness, Denies weakness - Psychiatric Psychiatric: Reports anxiety - Endocrine Endocrine: Reports fatigue, Reports weight change - Hematologic/Lymphatic Comment: none Hematologic/Lymphatic: Reports easy bruising - Allergic/Immunologic Allergic/Immunologic: Reports as per HPI Objective - Exam BMI 27.5 - Constitutional General appearance: Present: average body habitus - EENT Eyes: Present: EOMI ENT: Present: hearing grossly normal - Neck Neck: Present: normal ROM - Respiratory Respiratory: bilateral: CTA - Cardiovascular Rhythm: regular Heart sounds: normal: S1, S2 - Gastrointestinal Gastrointestinal Comment(s): umbilical hernia General gastrointestinal: Present: normal bowel sounds, soft - Integumentary Integumentary: Present: normal turgor - Musculoskeletal Musculoskeletal: Present: gait normal - Psychiatric Psychiatric: Present: A&O x's 3, appropriate affect, intact judgment & insight - Additional findings Additional findings: Breast exam: BRA: 36C inspection: grade 1 ptosis bilateral Palpation: Right Breast: Multi-positional exam fibrocystic changes, no dominant masses or nodules of concern Right axilla: No adenopathy of concern Left breast: Multi-positional exam fibrocystic changes no dominant masses or nodules of concern Left axilla: No adenopathy of concern No nipple discharge on today's exam on right or left breast Assessment and Plan Assessment: Impression: 1. chroans disease 2. fibromyalgia 3. endometriosis 4. spondolarthritis 5. raynauds 6. chronic midline low back pain; MRI scheduled for 03-05-20 7. GERD 8. anxiety 9. ? adult onset Stills disease but her ferritin is low 10. no nipple discharge on todays exam 11. Ultrasound abnormality right breast on 12. needs a gold prospector exam 13. partial bowel obstruction Plan: 1. repeat breast exam after bilateral mammogram in if ultrasound at this time is benign 2. Right breast ultrasound to follow-up on radiographic abnormality of 3. Bilateral mammogram in July [address] Soto 5. appointment with DR. Christensen establish primary care M.Lucia. CC: Dr. Christensen encounter 25 minutes > 50% of time in planning and counselling
== END | disposition home or self-care (01) ==
LOC: WWCWWP 11:03
PROVIDERS: ATTEND Surgery
DX: Z53.9 Procedure and treatment not carried out, unspecified reason (principal)

== ENCOUNTER → 2020-02-29 | Outpatient (CLI) | payer OTHER ==
--- NOTE | 2020-02-29 10:52 | USB ---
Reason for exam: clinical finding. History: Patient history of other cancer. Took hormonal contraceptives for 3 years. Physical Findings: Nurse did not find any significant physical abnormalities on exam. US Breast RT Right complete breast ultrasound includes all four quadrants, the retroareolar region and axilla. Finding demonstrates a 10 x 8 x 11mm oval, solid, hypoechoic lesion at 1 o'clock, previous measured 1.2 x x0.9 x 1.4cm. These results were verbally communicated with the patient and result sheet given to the patient on 02/29/20. ASSESSMENT: Probably benign, BI-RAD 3 RECOMMENDATION: Ultrasound of the right breast in 6 months.
== END | disposition home or self-care (01) ==
LOC: RADUSWWP 10:03
PROVIDERS: ATTEND Surgery
DX: R92.8 Other abnormal and inconclusive findings on diagnostic imaging of breast (principal)

== ENCOUNTER 2020-05-01 16:15 | Emergency (ER) | payer OTHER ==
[2020-05-01 16:23] VITALS: RESP 18
[2020-05-01] MEDS ORDERED: SODIUM CHLORIDE 0.9% 1,000 ML IV STA ×2 (16:48)
[2020-05-01] MEDS ORDERED: ONDANSETRON 4 MG/2 ML VIAL IVP STA (17:06)
[2020-05-01] MEDS ORDERED: HYDROmorphone 0.5 MG/0.5 ML SYRINGE IVP STA (17:06)
--- NOTE | 2020-05-01 17:10 | ED ---
Abdominal Pain HPI - General Chief Complaint: Abdominal Pain Stated Complaint: left side abd pain Time Seen by Provider: 05/01/20 16:24 Source: patient Mode of arrival: ambulatory Limitations: no limitations - History of Present Illness Initial Comments: 34-year-old female presents for 1 week of left-sided abdominal pain. Patient states that she was recently diagnosed with a hydrosalpinx, patient states that she had STI testing at this time approximately 3-4 days ago. She states S he had testing came back negative. Patient states she continues to have left lower quadrant abdominal pain. She denies any vaginal discharge vaginal bleeding she. She states she does have some dysuria urgency frequency she admits to occasional nausea denies vomiting. Pt denies fevers. patient denies RLQ pain. Denies . patient tirso additional complaints. upon arrival pt appears well nontoxic in no acute distress. afebrile. - Related Data Home Medications Medication Instructions Recorded Confirmed Dextroamphetamine/Amphetamine 30 mg PO DAILY 07/07/19 02/24/20 [Adderall Xr] Omeprazole [PriLOSEC] 40 mg PO DAILY 07/07/19 02/24/20 Pregabalin [Lyrica] 75 mg PO BID PRN 07/07/19 02/24/20 predniSONE 40 mg PO DAILY 08/19/19 02/24/20 Famotidine [Pepcid] 20 mg PO HS 02/24/20 02/24/20 Previous Rx's Medication Instructions Recorded Cephalexin [Keflex] 500 mg PO Q6HR 7 Days #28 cap 05/01/20 Doxycycline [Vibramycin] 100 mg PO BID 14 Days #28 capsule 05/01/20 Allergies Allergy/AdvReac Type Severity Reaction Status Date / Time adalimumab [From Humira] Allergy Rash/Hives Verified 05/01/20 16:24 azathioprine [From Imuran] Allergy Swelling Verified 05/01/20 16:24 caffeine Allergy Unknown Verified 05/01/20 16:24 [From Excedrin Migraine] hypochlorous acid Allergy Swelling Verified 05/01/20 16:24 [From Levicyn Antipruritic] morphine Allergy Rash/Hives Verified 05/01/20 16:24 prochlorperazine Allergy Confusion Verified 05/01/20 16:24 [From Compazine] sodium chloride Allergy Swelling Verified 05/01/20 16:24 [From Levicyn Antipruritic] sodium hypochlorite solution Allergy Swelling Verified 05/01/20 16:24 [From Levicyn Antipruritic] sodium magnesium Allergy Swelling Verified 05/01/20 16:24 fluorosilicate [From Levicyn Antipruritic] sodium phosphate Allergy Swelling Verified 05/01/20 16:24 [From Levicyn Antipruritic] Review of Systems ROS Statement: Those systems with pertinent positive or pertinent negative responses have been documented in the HPI. ROS Other: All systems not noted in ROS Statement are negative. Past Medical History Past Medical History: Fibromyalgia Additional Past Medical History / Comment(s): ulcerative colitis; endometriosis; arthritis; History of Any Multi-Drug Resistant Organisms: C-DIFF Date of last positivie culture/infection: March 2019 MDRO Source:: stool Past Surgical History: Adenoidectomy, Bowel Resection, Ear Surgery, Tonsillectomy, Tubal Ligation, Uterine Ablation Additional Past Surgical History / Comment(s): colon resection; Past Anesthesia/Blood Transfusion Reactions: No Reported Reaction Past Psychological History: Anxiety Smoking Status: Current every day smoker Past Alcohol Use History: None Reported Past Drug Use History: Marijuana General Exam - General Exam Comments Initial Comments: General: The patient is awake and alert, in no distress Eye: +3 mm pupils are equal, round and reactive to light, extra-ocular move ments are intact. No nystagmus. There is normal conjunctiva bilaterally. No signs of icterus. Ears, nose, mouth and throat: There are moist mucous membranes and no oral lesions. Neck: The neck is supple, there is no tenderness or JVD. Cardiovascular: There is a regular rate and rhythm. No murmur, rub or gallop is appreciated. Respiratory: Lungs are clear to auscultation, respirations are non-labored, breath sounds are equal. No wheezes, stridor, rales, or rhonchi. Gastrointestinal: Soft, non-distended, non-tender abdomen without masses or organomegaly noted. There is no rebound or guarding present. Musculoskeletal: Normal ROM, no tenderness. Strength 5/5. Sensation intact. radial and DP pulses equal bilaterally 2+. Neurological: A&O x 3. CN II-XII intact grossly, There are no obvious motor or sensory deficits. Coordination appears grossly intact. Speech is normal. Skin: Skin is warm and dry and no rashes or lesions are noted. Psychiatric: Cooperative, appropriate mood & affect, normal judgment. Limitations: no limitations Course Vital Signs 05/01/20 05/01/20 05/01/20 16:20 18:51 19:48 Temperature 98.4 F 98.9 F Pulse Rate 109 H 87 84 Respiratory 18 18 18 Rate Blood Pressure 135/89 117/77 127/96 O2 Sat by Pulse 97 100 100 Oximetry Medical Decision Making - Medical Decision Making Mild leukocyotis. No fevers. Hydrosalpinx on US. Does not appears to be TOA. Patient case consulted with OBGYN Dr. Martin who feels this is less likely to be infectious. Pt does have urinary symptoms consistent wtih UTI denies vaginal discharge. I performed pelvic after talking with OBGYN, there was significant amount of discharge with some mild cervical motion tenderness. I consulted OBGYN again she states she is happy with plan of outpatient discharge with 1 week f/u in her office and adding doxycycline 100mg BID x 14 days to the IV rocephin that was givne in the ER as patient does not appear toxic, afebrile with only mild leukocytosis. patient agreeable to this care plan and was disch arged appearing well, VS improved. - Lab Data Result diagrams: 05/01/20 17:07 05/01/20 17:07 Lab Results 05/01/20 05/01/20 05/01/20 Range/Units 17:07 17:07 17:07 WBC 11.8 H (3.8-10.6) k/uL RBC 4.82 (3.80-5.40) m/uL Hgb 13.7 (11.4-16.0) gm/dL Hct 40.2 (34.0-46.0) % MCV 83.5 (80.0-100.0) fL MCH 28.4 (25.0-35.0) pg MCHC 34.0 (31.0-37.0) g/dL RDW 14.2 (11.5-15.5) % Plt Count 255 (150-450) k/uL MPV 6.8 Neutrophils % 75 % Lymphocytes % 16 % Monocytes % 6 % Eosinophils % 2 % Basophils % 0 % Neutrophils # 8.9 H (1.3-7.7) k/uL Lymphocytes # 1.9 (1.0-4.8) k/uL Monocytes # 0.7 (0-1.0) k/uL Eosinophils # 0.2 (0-0.7) k/uL Basophils # 0.0 (0-0.2) k/uL Sodium (137-145) mmol/L Potassium (3.5-5.1) mmol/L Chloride (98-107) mmol/L Carbon Dioxide (22-30) mmol/L Anion Gap mmol/L BUN (7-17) mg/dL Creatinine (0.52-1.04) mg/dL Est GFR (CKD-EPI)AfAm (>60 ml/min/1.73 sqM) Est GFR (CKD-EPI)NonAf (>60 ml/min/1.73 sqM) Glucose (74-99) mg/dL Plasma Lactic Acid [place] (0.7-2.0) mmol/L Calcium (8.4-10.2) mg/dL Total Bilirubin (0.2-1.3) mg/dL AST (14-36) U/L ALT (4-34) U/L Alkaline Phosphatase (38-126) U/L Total Protein (6.3-8.2) g/dL Albumin (3.5-5.0) g/dL Amylase (30-110) U/L Lipase (23-300) U/L Urine Color Yellow Urine Appearance Turbid H (Clear) Urine pH 7.5 (5.0-8.0) Ur Specific [place] 1.019 (1.001-1.035) Urine Protein 1+ H (Negative) Urine Glucose (UA) Negative (Negative) Urine Ketones Negative (Negative) Urine Blood Trace H (Negative) Urine Nitrite Negative (Negative) Urine Bilirubin Negative (Negative) Urine Urobilinogen <2.0 (<2.0) mg/dL Ur Leukocyte Esterase Large H (Negative) Urine RBC 18 H (0-5) /hpf Urine WBC >182 H (0-5) /hpf Urine WBC Clumps Few H (None) /hpf Ur Squamous Epith Cells 19 H (0-4) /hpf Amorphous Sediment Rare H (None) /hpf Urine Bacteria Occasional H (None) /hpf Urine Mucus Many H (None) /hpf Urine HCG, Qual Not Detected (Not Detectd) Chlamydia Source Chlamydia DNA (PCR) (Neg,Equiv) N. gonorrhoeae Source N.gonorrhoeae DNA Probe (Neg,Equiv) Trichomonas Ag (Rapid) (Negative) 05/01/20 05/01/20 05/01/20 Range/Units 17:07 17:07 19:43 WBC (3.8-10.6) k/uL RBC (3.80-5.40) m/uL Hgb (11.4-16.0) gm/dL Hct (34.0-46.0) % MCV (80.0-100.0) fL MCH (25.0-35.0) pg MCHC (31.0-37.0) g/dL RDW (11.5-15.5) % Plt Count (150-450) k/uL MPV Neutrophils % % Lymphocytes % % Monocytes % % Eosinophils % % Basophils % % Neutrophils # (1.3-7.7) k/uL Lymphocytes # (1.0-4.8) k/uL Monocytes # (0-1.0) k/uL Eosinophils # (0-0.7) k/uL Basophils # (0-0.2) k/uL Sodium 138 (137-145) mmol/L Potassium 3.6 (3.5-5.1) mmol/L Chloride 104 (98-107) mmol/L Carbon Dioxide 27 (22-30) mmol/L Anion Gap 7 mmol/L BUN 11 (7-17) mg/dL Creatinine 0.68 (0.52-1.04) mg/dL Est GFR (CKD-EPI)AfAm >90 (>60 ml/min/1.73 sqM) Est GFR (CKD-EPI)NonAf >90 (>60 ml/min/1.73 sqM) Glucose 97 (74-99) mg/dL Plasma Lactic Acid [place] 0.8 (0.7-2.0) mmol/L Calcium 8.8 (8.4-10.2) mg/dL Total Bilirubin 0.3 (0.2-1.3) mg/dL AST 15 (14-36) U/L ALT 15 (4-34) U/L Alkaline Phosphatase 59 (38-126) U/L Total Protein 6.4 (6.3-8.2) g/dL Albumin 3.8 (3.5-5.0) g/dL Amylase 31 (30-110) U/L Lipase 69 (23-300) U/L Urine Color Urine Appearance (Clear) Urine pH (5.0-8.0) Ur Specific [place] (1.001-1.035) Urine Protein (Negative) Urine Glucose (UA) (Negative) Urine Ketones (Negative) Urine Blood (Negative) Urine Nitrite (Negative) Urine Bilirubin (Negative) Urine Urobilinogen (<2.0) mg/dL Ur Leukocyte Esterase (Negative) Urine RBC (0-5) /hpf Urine WBC (0-5) /hpf Urine WBC Clumps (None) /hpf Ur Squamous Epith Cells (0-4) /hpf Amorphous Sediment (None) /hpf Urine Bacteria (None) /hpf Urine Mucus (None) /hpf Urine HCG, Qual (Not Detectd) Chlamydia Source Chlamydia DNA (PCR) (Neg,Equiv) N. gonorrhoeae Source N.gonorrhoeae DNA Probe (Neg,Equiv) Trichomonas Ag (Rapid) Negative (Negative) 05/01/20 Range/Units 19:43 WBC (3.8-10.6) k/uL RBC (3.80-5.40) m/uL Hgb (11.4-16.0) gm/dL Hct (34.0-46.0) % MCV (80.0-100.0) fL MCH (25.0-35.0) pg MCHC (31.0-37.0) g/dL RDW (11.5-15.5) % Plt Count (150-450) k/uL MPV Neutrophils % % Lymphocytes % % Monocytes % % Eosinophils % % Basophils % % Neutrophils # (1.3-7.7) k/uL Lymphocytes # (1.0-4.8) k/uL Monocytes # (0-1.0) k/uL Eosinophils # (0-0.7) k/uL Basophils # (0-0.2) k/uL Sodium (137-145) mmol/L Potassium (3.5-5.1) mmol/L Chloride (98-107) mmol/L Carbon Dioxide (22-30) mmol/L Anion Gap mmol/L BUN (7-17) mg/dL Creatinine (0.52-1.04) mg/dL Est GFR (CKD-EPI)AfAm (>60 ml/min/1.73 sqM) Est GFR (CKD-EPI)NonAf (>60 ml/min/1.73 sqM) Glucose (74-99) mg/dL Plasma Lactic Acid [place] (0.7-2.0) mmol/L Calcium (8.4-10.2) mg/dL Total Bilirubin (0.2-1.3) mg/dL AST (14-36) U/L ALT (4-34) U/L Alkaline Phosphatase (38-126) U/L Total Protein (6.3-8.2) g/dL Albumin (3.5-5.0) g/dL Amylase (30-110) U/L Lipase (23-300) U/L Urine Color Urine Appearance (Clear) Urine pH (5.0-8.0) Ur Specific [place] (1.001-1.035) Urine Protein (Negative) Urine Glucose (UA) (Negative) Urine Ketones (Negative) Urine Blood (Negative) Urine Nitrite (Negative) Urine Bilirubin (Negative) Urine Urobilinogen (<2.0) mg/dL Ur Leukocyte Esterase (Negative) Urine RBC (0-5) /hpf Urine WBC (0-5) /hpf Urine WBC Clumps (None) /hpf Ur Squamous Epith Cells (0-4) /hpf Amorphous Sediment (None) /hpf Urine Bacteria (None) /hpf Urine Mucus (None) /hpf Urine HCG, Qual (Not Detectd) Chlamydia Source Vagina Chlamydia DNA (PCR) Negative (Neg,Equiv) N. gonorrhoeae Source Vagina N.gonorrhoeae DNA Probe Negative (Neg,Equiv) Trichomonas Ag (Rapid) (Negative) Disposition Clinical Impression: Hydrosalpinx, UTI (urinary tract infection), Vaginal discharge Disposition: HOME SELF-CARE Condition: Good Instructions (If sedation given, give patient instructions): Urinary Tract Infection in Women (ED) Additional Instructions: Please use medication as discussed. Please follow-up with family doctor in the next 2 days. Please return to emergency room if the symptoms increase or worsen or for any other concerns. Prescriptions: Cephalexin [Keflex] 500 mg PO Q6HR 7 Days #28 cap Doxycycline [Vibramycin] 100 mg PO BID 14 Days #28 capsule Is patient prescribed a controlled substance at d/c from ED?: No Referrals: Sapphire Christensen MD [Primary Care Provider] - 1-2 days Dahlia Cifuentes MD [STAFF PHYSICIAN] - 1-2 days Time of Disposition: 19:06
[2020-05-01 17:32] LABS: Basophils % (A) 0 %; Eosinophils # (A) 0.2 k/uL (0-0.7); Eosinophils % (A) 2 %; HCT 40.2 % (34.0-46.0); HGB 13.7 gm/dL (11.4-16.0); Lymphocytes # (A) 1.9 k/uL (1.0-4.8); Lymphocytes % (A) 16 %; MCH 28.4 pg (25.0-35.0); MCV 83.5 fL (80.0-100.0); Mean Platelet Volume 6.8; Monocytes # (A) 0.7 k/uL (0-1.0); Monocytes % (A) 6 %; Neutrophils # (A) 8.9 k/uL (1.3-7.7); Neutrophils % (A) 75 %; Platelet Count 255 k/uL (150-450); RBC 4.82 m/uL (3.80-5.40); RDW 14.2 % (11.5-15.5); WBC 11.8 k/uL (3.8-10.6)
[2020-05-01 17:35] LABS: Amorphous Sediment,Urine Rare /hpf; Appearance,Urine Turbid (Clear); Bacteria,Urine Occasional /hpf; Bilirubin,Urine Negative (Negative); Blood,Urine Trace (Negative); Color,Urine Yellow; Glucose,Urine (UA) Negative (Negative); Ketones,Urine Negative (Negative); Leukocyte Esterase,Urine Large (Negative); Mucus,Urine Many /hpf; Nitrite,Urine Negative (Negative); PH, Urine 7.5 (5.0-8.0); Protein,Urine 1+ (Negative); RBC,Urine 18 /hpf (0-5); Specific Gravity,Urine 1.019 (1.001-1.035); Squamous Epithelial Cell,Urine 19 /hpf (0-4); Urobilinogen,Urine <2.0 mg/dL (<2.0); WBC,Urine >182 /hpf (0-5)
[2020-05-01 17:41] LABS: ALT 15 U/L (4-34); AST 15 U/L (14-36); African American GFR (CKD) >90 (>60 ml/min/1.73 sqM); Albumin 3.8 g/dL (3.5-5.0); Alkaline Phosphatase 59 U/L (38-126); Amylase 31 U/L (30-110); Anion Gap 7 mmol/L; Blood Urea Nitrogen 11 mg/dL (7-17); Calcium 8.8 mg/dL (8.4-10.2); Carbon Dioxide 27 mmol/L (22-30); Chloride 104 mmol/L (98-107); Glucose 97 mg/dL (74-99); Lipase 69 U/L (23-300); Non-African American GFR(CKD) >90 (>60 ml/min/1.73 sqM); Potassium 3.6 mmol/L (3.5-5.1); Sodium 138 mmol/L (137-145); Total Bilirubin 0.3 mg/dL (0.2-1.3); Total Protein 6.4 g/dL (6.3-8.2)
[2020-05-01] MEDS ORDERED: cefTRIAXone IN SWFI 1,000 MG/10 ML SYRINGE IVP STA (17:42)
--- NOTE | 2020-05-01 18:18 | US ---
EXAMINATION TYPE: US transvaginal DATE OF EXAM: 05/01/2020 COMPARISON: CT CLINICAL HISTORY: WITH DOPPLER PLS, for pelvic pain. Pelvic pain x 1 day. Hx hydrosalpinx, endometrio sis, laparoscopy, tubal ligation, uterine ablation 2014, appendectomy, twin , 2 miscarriages . . TECHNIQUE: Transvaginal (TV). Transabdominal sonographic images of the pelvis were acquired. Date of LMP: 2014 EXAM MEASUREMENTS: Uterus: 6.6 x 4.9 x 3.0 cm Endometrial Stripe: Limited visibility, measured at 0.3 cm Right Ovary: 2.7 x 1.7 x 2.0 cm Left Ovary: 2.4 x 1.7 x 1.6 cm 1. Uterus: Anteverted. Appears heterogeneous. Anechoic and complex/septated areas seen in cervix, largest measures 1.2 x 1.1 x 1.1 cm. 2. Endometrium: Limited visibility. 3. Right Ovary: Complex area seen measuring 1.3 x 1.4 x 1.6 cm. Subcentimeter anechoic areas seen. 4. Left Ovary: Hyperechoic area seen measuring 0.6 x 0.6 x 0.6 cm. Spectral, color and waveform doppler imaging shows arterial and venous flow within the right ovary. Arterial flow seen within the left ovary. Limited visibility of venous waveform within the left ovar y. Possible venous waveform seen in left ovary. 5. Bilateral Adnexa: Anechoic area seen in right adnexa measuring 0.6 x 2.2 x 0.7 cm. A second anechoic area seen in right adnexa measuring 1.3 x 1.0 x 0.4 cm. Anechoic area seen in left adnexa measuring 4.7 x 1.0 x 1.1 cm. 6. Posterior cul-de-sac: Fluid seen measuring 1.0 x 1.0 x 0.8 cm. IMPRESSION: 2.2 cm somewhat elongated anechoic left adnexal structure, is nonspecific. Possible hydrosalpinx can not be excluded. Attention on pending CT. Otherwise, [employer] consultation and imaging follow-up as indica jatinder. Otherwise multiple ovarian, cervical and right adnexal cyst like changes, most compatible with benign . Additional follow-up. No definite evidence of ovary torsion
[2020-05-01 18:52] VITALS: TEMP 98.9
--- NOTE | 2020-05-01 18:55 | CT ---
EXAMINATION TYPE: CT abdomen pelvis wo con DATE OF EXAM: 05/01/2020 COMPARISON: 12/21/2019. HISTORY: Left sided pain with increased urgency to urinate. CT DLP: 446.3 mGycm Automated exposure control for dose reduction was used. TECHNIQUE: Helical acquisition of images was performed from the lung bases through the pelvis. FINDINGS: LUNG BASES: No significant abnormality is appreciated. LIVER/GB: No significant abnormality is appreciated. PANCREAS: No significant abnormality is seen. SPLEEN: No significant abnormality is seen. ADRENALS: No significant abnormality is seen. KIDNEYS: No significant abnormality is seen. FREE AIR: No free air is visualized RETROPERITONEAL ADENOPATHY: None visualized REPRODUCTIVE ORGANS: No significant abnormality is seen URINARY BLADDER: No significant abnormality is seen. PELVIC ADENOPATHY: None visualized. OSSEOUS STRUCTURES: No significant abnormality is seen. BOWEL: No bowel obstruction, free air fluid. Postsurgical changes involving the sigmoid colon. Moder ate amount of stool in the sigmoid colon and rectal vault. OTHER: None IMPRESSION: NO ACUTE ABNORMALITY. MODERATE DISTAL COLON /RECTAL VAULT STOOL BURDEN.
[2020-05-01] MEDS ORDERED: KETOROLAC 15 MG/ML 1 ML VIAL IVP STA (19:14)
[2020-05-01 19:49] VITALS: BP 127/96; PULSE 84
[2020-05-02 13:39] LABS: C. trachomatis,PCR Negative (Neg,Equiv); Chlamydia trachomatis Source Vagina; N. gonorrhoeae,PCR Negative (Neg,Equiv); Neisseria Source Vagina
== END 2020-05-01 19:49 | disposition home or self-care (01) ==
LOC: EC 16:15
DX: N70.11 Chronic salpingitis (principal); N39.0 Urinary tract infection, site not specified; M79.7 Fibromyalgia; D72.829 Elevated white blood cell count, unspecified; F17.200 Nicotine dependence, unspecified, uncomplicated; Z79.899 Other long term (current) drug therapy; Z79.52 Long term (current) use of systemic steroids; Z88.8 Allergy status to other drugs, medicaments and biological substances; Z91.018 Allergy to other foods; Z88.5 Allergy status to narcotic agent; Z90.49 Acquired absence of other specified parts of digestive tract; Z98.51 Tubal ligation status
CPT/HCPCS: 36415; 80053; 82150; 83605; 83690; 85025; 81001; 81025; 87808; 87491; 87591; 87070; 87086; 93975; 76830; 74176; 99284; 96374; 96375 ×3; 96361 ×3; J2405; J0696; J1885; J1170

== ENCOUNTER → 2020-08-17 | Outpatient (CLI) | payer OTHER ==
--- NOTE | 2020-08-17 09:49 | MM ---
Reason for exam: additional evaluation requested from prior study. Last mammogram was performed 1 year ago. History: Patient history of other cancer. Took hormonal contraceptives for 3 years. Physical Findings: Nurse did not find any significant physical abnormalities on exam. MG 3D Diag Mammo W/Cad CAITIE Bilateral CC and MLO view(s) were taken. Prior study comparison: August 11, 2019, bilateral MG diagnostic mammo w CAD CAITIE. The breast tissue is extremely dense which could obscure a lesion on mammography. Right stable 1.4cm nodule 10 o'clock zone C, 7cm from nipple. These results were verbally communicated with the patient and result sheet given to the patient on 08/17/20. ASSESSMENT: Incomplete: need additional imaging evaluation, BI-RAD 0 RECOMMENDATION: Ultrasound of the right breast.
--- NOTE | 2020-08-17 09:50 | USB ---
Reason for exam: additional evaluation requested from abnormal screening. History: Patient history of other cancer. Took hormonal contraceptives for 3 years. US Breast Limited RT Right limited breast ultrasound including focal area of concern, retroareolar and axilla demonstrates a 1.1 x 1.4 x 0.8cm solid, hypoechoic lesion at 1 o'clock, appears stable, most likely fibroadenoma, probably benign. These results were verbally communicated with the patient and result sheet given to the patient on 08/17/20. ASSESSMENT: Probably benign, BI-RAD 3 RECOMMENDATION: Ultrasound of the right breast in 6 months.
== END | disposition home or self-care (01) ==
LOC: RADMAMWWP 07:57
PROVIDERS: ATTEND Surgery
DX: N63.10 Unspecified lump in the right breast, unspecified quadrant (principal); N64.59 Other signs and symptoms in breast
CPT/HCPCS: 77066; 76642; G0279; 77062

== ENCOUNTER 2021-06-13 02:06 | Observation (INO) | payer OTHER ==
[2021-06-13 03:15] LABS: Basophils % (A) 0 %; Eosinophils # (A) 0.1 k/uL (0-0.7); Eosinophils % (A) 1 %; HCT 40.2 % (34.0-46.0); HGB 13.7 gm/dL (11.4-16.0); Lymphocytes # (A) 0.9 k/uL (1.0-4.8); Lymphocytes % (A) 9 %; MCH 29.2 pg (25.0-35.0); MCHC 34.1 g/dL (31.0-37.0); MCV 85.7 fL (80.0-100.0); Mean Platelet Volume 7.5; Monocytes # (A) 0.4 k/uL (0-1.0); Monocytes % (A) 4 %; Neutrophils # (A) 8.6 k/uL (1.3-7.7); Neutrophils % (A) 85 %; Platelet Count 203 k/uL (150-450); RBC 4.69 m/uL (3.80-5.40); RDW 13.7 % (11.5-15.5); WBC 10.2 k/uL (3.8-10.6)
[2021-06-13] MEDS ORDERED: ONDANSETRON 4 MG/2 ML VIAL IVP STA (03:17)
[2021-06-13] MEDS ORDERED: SODIUM CHLORIDE 0.9% 1,000 ML IV ONE (03:17)
[2021-06-13] MEDS ORDERED: HYDROmorphone 0.5 MG/0.5 ML SYRINGE IVP STA ×2 (03:17→08:38)
--- NOTE | 2021-06-13 03:23 | ED ---
Abdominal Pain HPI - General Chief Complaint: Abdominal Pain Stated Complaint: Abdominal pain Time Seen by Provider: 06/13/21 03:03 Source: patient, family Mode of arrival: wheelchair Limitations: no limitations - History of Present Illness Initial Comments: Patient is a 35-year-old woman who presents with lower abdominal pain. She indicates the suprapubic area. She states the pain is been going on since noon and was initially like she described as labor contractions over she is not . She states this continued for a few hours and then became constant pain. MD Complaint: abdominal pain Onset/Timin -: hour(s) Location: LLQ, RLQ, suprapubic Radiation: none Quality: sharp Consistency: constant Improves With: nothing Worsens With: nothing Associated Symptoms: denies other symptoms - Related Data Home Medications Medication Instructions Recorded Confirmed Famotidine [Pepcid] 20 mg PO HS 02/24/20 06/13/21 Omeprazole [PriLOSEC] 40 mg PO DAILY 06/13/21 06/13/21 Previous Rx's Medication Instructions Recorded predniSONE 10 mg PO DAILY #74 tab 06/14/21 HYDROcodone/APAP 5-325MG [[place] 1 tab PO Q4HR PRN 3 Days #18 tab 06/15/21 5-325] Allergies Allergy/AdvReac Type Severity Reaction Status Date / Time adalimumab [From Humira] Allergy Rash/Hives Verified 06/13/21 06:45 azathioprine [From Imuran] Allergy Swelling Verified 06/13/21 06:45 caffeine Allergy Unknown Verified 06/13/21 06:45 [From Excedrin Migraine] hypochlorous acid Allergy Swelling Verified 06/13/21 06:45 [From Levicyn Antipruritic] morphine Allergy Rash/Hives Verified 06/13/21 06:45 prochlorperazine Allergy Confusion Verified 06/13/21 06:45 [From Compazine] sodium chloride Allergy Swelling Verified 06/13/21 06:45 [From Levicyn Antipruritic] sodium hypochlorite solution Allergy Swelling Verified 06/13/21 06:45 [From Levicyn Antipruritic] sodium magnesium Allergy Swelling Verified 06/13/21 06:45 fluorosilicate [From Levicyn Antipruritic] sodium phosphate Allergy Swelling Verified 06/13/21 06:45 [From Levicyn Antipruritic] Review of Systems ROS Statement: Those systems with pertinent positive or pertinent negative responses have been documented in the HPI. ROS Other: All systems not noted in ROS Statement are negative. Constitutional: Denies: fever, chills Respiratory: Denies: cough, dyspnea Cardiovascular: Denies: chest pain, palpitations Gastrointestinal: Reports: abdominal pain. Denies: nausea, vomiting, diarrhea, constipation, melena, hematochezia Genitourinary: Denies: dysuria, hematuria Musculoskeletal: Denies: back pain Skin: Denies: rash Neurological: Denies: headache, weakness, numbness Past Medical History Past Medical History: Fibromyalgia Additional Past Medical History / Comment(s): ulcerative colitis; endometriosis; arthritis; Ovarian cyst, Chrons History of Any Multi-Drug Resistant Organisms: C-DIFF Date of last positivie culture/infection: March 2019 MDRO Source:: stool Past Surgical History: Adenoidectomy, Bowel Resection, Ear Surgery, Tonsillectom y, Tubal Ligation, Uterine Ablation Additional Past Surgical History / Comment(s): colon resection; Past Anesthesia/Blood Transfusion Reactions: No Reported Reaction Past Psychological History: ADD/ADHD, Anxiety Smoking Status: Current every day smoker Past Alcohol Use History: Occasional Past Drug Use History: Marijuana General Exam Limitations: no limitations General appearance: alert, in no apparent distress Head exam: Present: atraumatic, normocephalic Eye exam: Present: normal appearance. Absent: scleral icterus, conjunctival injection ENT exam: Present: mucous membranes dry Neck exam: Present: normal inspection Respiratory exam: Present: normal lung sounds bilaterally. Absent: respiratory distress, wheezes, rales, rhonchi, stridor Cardiovascular Exam: Present: regular rate, normal rhythm, normal heart sounds. Absent: systolic murmur, diastolic murmur, rubs, gallop GI/Abdominal exam: Present: soft, tenderness, normal bowel sounds. Absent: distended, guarding, rebound, rigid, mass Extremities exam: Present: normal inspection, normal capillary refill. Absent: pedal edema, calf tenderness Back exam: Present: normal inspection. Absent: CVA tenderness (R), CVA tenderness (L) Neurological exam: Present: alert Skin exam: Present: warm, dry, intact, normal color. Absent: rash Course Vital Signs 03/23/22 03/23/22 03/23/22 02:10 08:53 14:00 Temperature 98.1 F 98.6 F 98.4 F Pulse Rate 108 H 103 H 89 Respiratory 18 20 18 Rate Blood Pressure 153/89 124/73 109/64 O2 Sat by Pulse 100 97 99 Oximetry Medical Decision Making - Lab Data Result diagrams: 06/15/21 07:02 06/15/21 07:02 Lab Results 06/13/21 06/13/21 06/13/21 Range/Units 03:00 03:00 03:00 WBC 10.2 (3.8-10.6) k/uL RBC 4.69 (3.80-5.40) m/uL Hgb 13.7 (11.4-16.0) gm/dL Hct 40.2 (34.0-46.0) % MCV 85.7 (80.0-100.0) fL MCH 29.2 (25.0-35.0) pg MCHC 34.1 (31.0-37.0) g/dL RDW 13.7 (11.5-15.5) % Plt Count 203 (150-450) k/uL MPV 7.5 Neutrophils % 85 % Lymphocytes % 9 % Monocytes % 4 % Eosinophils % 1 % Basophils % 0 % Neutrophils # 8.6 H (1.3-7.7) k/uL Lymphocytes # 0.9 L (1.0-4.8) k/uL Monocytes # 0.4 (0-1.0) k/uL Eosinophils # 0.1 (0-0.7) k/uL Basophils # 0.0 (0-0.2) k/uL ESR (0-20) mm/hr Sodium 136 L (137-145) mmol/L Potassium 3.7 (3.5-5.1) mmol/L Chloride 105 (98-107) mmol/L Carbon Dioxide 22 (22-30) mmol/L Anion Gap 9 mmol/L BUN 9 (7-17) mg/dL Creatinine 0.60 (0.52-1.04) mg/dL Est GFR (CKD-EPI)AfAm >90 (>60 ml/min/1.73 sqM) Est GFR (CKD-EPI)NonAf >90 (>60 ml/min/1.73 sqM) Glucose 94 (74-99) mg/dL Plasma Lactic Acid [place] 1.0 (0.7-2.0) mmol/L Calcium 8.4 (8.4-10.2) mg/dL Total Bilirubin 0.4 (0.2-1.3) mg/dL AST 31 (14-36) U/L ALT 21 (4-34) U/L Alkaline Phosphatase 68 (38-126) U/L C-Reactive Protein (<1.0) mg/dL Total Protein 6.6 (6.3-8.2) g/dL Albumin 3.7 (3.5-5.0) g/dL 06/13/21 06/13/21 Range/Units 03:00 03:00 WBC (3.8-10.6) k/uL RBC (3.80-5.40) m/uL Hgb (11.4-16.0) gm/dL Hct (34.0-46.0) % MCV (80.0-100.0) fL MCH (25.0-35.0) pg MCHC (31.0-37.0) g/dL RDW (11.5-15.5) % Plt Count (150-450) k/uL MPV Neutrophils % % Lymphocytes % % Monocytes % % Eosinophils % % Basophils % % Neutrophils # (1.3-7.7) k/uL Lymphocytes # (1.0-4.8) k/uL Monocytes # (0-1.0) k/uL Eosinophils # (0-0.7) k/uL Basophils # (0-0.2) k/uL ESR 20 (0-20) mm/hr Sodium (137-145) mmol/L Potassium (3.5-5.1) mmol/L Chloride (98-107) mmol/L Carbon Dioxide (22-30) mmol/L Anion Gap mmol/L BUN (7-17) mg/dL Creatinine (0.52-1.04) mg/dL Est GFR (CKD-EPI)AfAm (>60 ml/min/1.73 sqM) Est GFR (CKD-EPI)NonAf (>60 ml/min/1.73 sqM) Glucose (74-99) mg/dL Plasma Lactic Acid [place] (0.7-2.0) mmol/L Calcium (8.4-10.2) mg/dL Total Bilirubin (0.2-1.3) mg/dL AST (14-36) U/L ALT (4-34) U/L Alkaline Phosphatase (38-126) U/L C-Reactive Protein 1.8 H (<1.0) mg/dL Total Protein (6.3-8.2) g/dL Albumin (3.5-5.0) g/dL Disposition Clinical Impression: Intractable abdominal pain Disposition: ADMITTED IP TO THIS [facility] Condition: Good Is patient prescribed a controlled substance at d/c from ED?: No
[2021-06-13 03:25] LABS: ALT 21 U/L (4-34); AST 31 U/L (14-36); African American GFR (CKD) >90 (>60 ml/min/1.73 sqM); Albumin 3.7 g/dL (3.5-5.0); Alkaline Phosphatase 68 U/L (38-126); Anion Gap 9 mmol/L; Blood Urea Nitrogen 9 mg/dL (7-17); Calcium 8.4 mg/dL (8.4-10.2); Carbon Dioxide 22 mmol/L (22-30); Chloride 105 mmol/L (98-107); Glucose 94 mg/dL (74-99); Non-African American GFR(CKD) >90 (>60 ml/min/1.73 sqM); Potassium 3.7 mmol/L (3.5-5.1); Sodium 136 mmol/L (137-145); Total Bilirubin 0.4 mg/dL (0.2-1.3); Total Protein 6.6 g/dL (6.3-8.2)
--- NOTE | 2021-06-13 06:19 | CT ---
EXAMINATION TYPE: CT abdomen pelvis wo con DATE OF EXAM: 06/13/2021 HISTORY: lower abd pain CT DLP: 406.2 mGycm. Automated Exposure Control for Dose Reduction was Utilized. TECHNIQUE: CT scan of the abdomen and pelvis is performed without oral or IV contrast. COMPARISON: Prior CT May 01, 2020 FINDINGS: Within the limitations of a non-contrast study, the following observations are made. LUNG BASES: No significant abnormality is appreciated. LIVER/GB: No significant abnormality is appreciated. PANCREAS: No significant abnormality is seen. SPLEEN: Mild splenomegaly remains present measuring 13.5 cm long axis coronal image 59. ADRENALS: No significant abnormality is seen. KIDNEYS: No renal calculi seen bilaterally. BOWEL: Suboptimal evaluation of bowel without enteric contrast. There are surgical sutures from bowel anastomosis in the pelvis. Prominent colonic loops with air-fluid levels and internal fecal debris a re identified. Overall no suspicious small or large bowel dilatation in the abdomen. Findings have si milar appearance to prior study. Scattered pelvic phleboliths. GENITAL ORGANS: Anteverted uterus. LYMPH NODES: No greater than 1cm abdominal or pelvic lymph nodes are appreciated. OSSEOUS STRUCTURES: No significant abnormality is seen. OTHER: No significant additional abnormality is seen. IMPRESSION: Suboptimal study. Persistent postsurgical change to distal colonic loops in the pelvis wh ich are more prominent and fecal filled. Consider moderate distal colonic fecal stasis. No suspicious proximal dilatation to suggest obstruction. No significant change from most recent CT.
[2021-06-13] MEDS ORDERED: NALOXONE 0.4 MG/ML 1 ML VIAL IV PRN (08:29)
[2021-06-13] MEDS ORDERED: MAGNESIUM CITRATE 296 ML BOTTLE PO ONE (08:38)
--- NOTE | 2021-06-13 11:12 | P.HPIM ---
History of Present Illness H&P Date: 06/13/21 History of Presenting Illness: Patient is a very pleasant 35-year-old female with a past medical history of Crohn's disease and endometriosis. She presented to the emergency department with a chief complaint of abdominal pain. The patient underwent full evaluation in the emergency department CBC and CMP were unremarkable. CRP was slightly elevated at 1.8. CT abdomen and pelvis revealed fecal filled distal colonic loops showing no suspicious proximal dilation to suggest obstruction, likely moderate distal colonic fecal stasis. ED RN reports attempts were made to give patient a enema, but patient was unable to hold enema in and pt declined further attempts. Patient was then medicated with Dilaudid and given magnesium citrate. She was then admitted under our services with consultation to general surgery. Patient seen and fully evaluated at bedside. She reports that she was recently on Remicade but this was discontinued one month ago by her GI specialist. Pat ient reports having diffuse abdominal pain described as contractions. She denies having any chances of . Denies experiencing any fevers, chills, diaphoresis, chest pain, palpitations, shortness of breath, nausea, vomiting, hematuria, dysuria, frequency, urgency, or experiencing any melena, hematochezia or diarrhea. Patient reports last bowel movement being a few days ago. Review of systems: Pertinent positives and negatives as discussed in HPI, a complete review of systems was performed and all other systems are negative. Physical exam: Vital signs reviewed and stable. General: Nontoxic, no distress and appears stated age. Very thin build. Derm: Skin warm and dry, normal coloration for ethnicity. Head: Atraumatic, normocephalic and symmetric. Eyes: EOMs intact, no lid lag, and anicteric sclera Mouth: no lip lesions, mucus membranes moist Cardiovascular: regular rate and rhythm with normal S1S2, no murmur, positive posterior tibial pulses bilaterally, and cap refill < 2 seconds. Lungs: Respirations even, regular, and unlabored on room air. Lungs CTA bilaterally, no rhonchi, no rales, no wheezing, and no accessory muscle usage. Abdominal: soft,diffuse abdominal tenderness upon palpation, no guarding, no appreciable organomegaly Ext: ROM intact. No gross muscle atrophy, no edema, no contractures Neuro: Speech clear, face symmetrical and CN II-XII grossly intact with no noted focal neuro deficits Psych: Alert and oriented to person, place, time, and situation. Appropriate and pleasant affect. Assessment and Plan of Care: Abdominal pain Moderate distal colonic fecal stasis History of Crohn's disease History of Endometriosis -NPO -Hydration with IV fluids -Gen. surgery consulted, appreciate recommendations -Mag citrate 1 dose was successful in reports of moderate liquid stool output -Symptomatic care and pain management -Bentyl 1 dose to be administered -Urinalysis with reflex to culture and urine hCG to be obtained, discussed with RN importance of obtaining and may straight cath if needed. The patient is admitted with an anticipated less than 2 midnight stay for evaluation of abdominal pain. CODE STATUS: Full code DVT prophylaxis: Heparin Discussed with: Patient and RN Anticipated discharge date: 1-[address]: Home A total of 40 minutes was spent on the care of this complex patient more than 50% of the time was spent in counseling and care coordination. Past Medical History Past Medical History: Fibromyalgia Additional Past Medical History / Comment(s): ulcerative colitis; endometriosis; arthritis; Ovarian cyst, Chrons History of Any Multi-Drug Resistant Organisms: C-DIFF Date of last positivie culture/infection: March 2019 MDRO Source:: stool Past Surgical History: Adenoidectomy, Bowel Resection, Ear Surgery, T onsillectomy, Tubal Ligation, Uterine Ablation Additional Past Surgical History / Comment(s): colon resection; Past Anesthesia/Blood Transfusion Reactions: No Reported Reaction Past Psychological History: ADD/ADHD, Anxiety Smoking Status: Current every day smoker Past Alcohol Use History: Occasional Past Drug Use History: Marijuana Medications and Allergies Home Medications Medication Instructions Recorded Confirmed Type Famotidine [Pepcid] 20 mg PO HS 02/24/20 06/13/21 History Omeprazole [PriLOSEC] 40 mg PO DAILY 06/13/21 06/13/21 History Allergies Allergy/AdvReac Type Severity Reaction Status Date / Time adalimumab [From Humira] Allergy Rash/Hives Verified 06/13/21 06:45 azathioprine [From Imuran] Allergy Swelling Verified 06/13/21 06:45 caffeine Allergy Unknown Verified 06/13/21 06:45 [From Excedrin Migraine] hypochlorous acid Allergy Swelling Verified 06/13/21 06:45 [From Levicyn Antipruritic] morphine Allergy Rash/Hives Verified 06/13/21 06:45 prochlorperazine Allergy Confusion Verified 06/13/21 06:45 [From Compazine] sodium chloride Allergy Swelling Verified 06/13/21 06:45 [From Levicyn Antipruritic] sodium hypochlorite solution Allergy Swelling Verified 06/13/21 06:45 [From Levicyn Antipruritic] sodium magnesium Allergy Swelling Verified 06/13/21 06:45 fluorosilicate [From Levicyn Antipruritic] sodium phosphate Allergy Swelling Verified 06/13/21 06:45 [From Levicyn Antipruritic] Physical Exam Vitals: Vital Signs Temp Pulse Resp BP Pulse Ox 06/13/21 08:53 98.6 F 103 H 20 124/73 97 06/13/21 02:10 98.1 F 108 H 18 153/89 100 Intake and Output 06/12/21 06/13/21 06/13/21 22:59 06:59 14:59 Other: Weight 51.71 kg Results CBC & Chem 7: 06/13/21 03:00 06/13/21 03:00 Labs: Abnormal Lab Results - Last 24 Hours (Table) 06/13/21 06/13/21 Range/Units 03:00 03:00 Neutrophils # 8.6 H (1.3-7.7) k/uL Lymphocytes # 0.9 L (1.0-4.8) k/uL Sodium 136 L (137-145) mmol/L
[2021-06-13] MEDS ORDERED: DICYCLOMINE 10 MG/ML 2 ML AMP IM STA (11:13)
[2021-06-13] MEDS: PANTOPRAZOLE 40 MG/10 ML VIAL IV SCH (11:51)
[2021-06-13] MEDS: SODIUM CHLORIDE 0.9% 1,000 ML IV SCH ×3 (11:55→23:31)
--- NOTE | 2021-06-13 12:05 | P.GSCN ---
History of Present Illness Consult date: 06/13/21 Reason for Consult: Intractable abdominal pain History of present illness: CHIEF COMPLAINT: Abdominal pain HISTORY OF PRESENT ILLNESS: This is a 35-year-old female with a history of Crohn's disease diagnosed 10-12 years ago she has followed with Dr. Willson as well as from [facility], IBD specialist. Patient presented to the emergency department today with ongoing abdominal pain she states started yesterday afternoon and has progressively gotten worse and now feels like they are contractions pain. She does state she also has a history of endometriosis. She's not had any nausea or vomiting. She states her bowel movements have been normal, they are always loose and she states she has several a day. She was previously on Humira and Remicade. Remicade was stopped one month ago by her specialist. She does have a history of subtotal colectomy with ileorectal anastomosis done at [facility] in 2018 and does report that she does have a J-pouch. He had a CT of the abdomen and pelvis which report suboptimal study. Persistent postsurgical change to distal colonic loops in the pelvis w hich are more prominent and fecal filled. Consider moderate distal colonic fecal stasis. No suspicious proximal dilation to suggest obstruction. No significant change from most recent CT. Denies any recent sick contacts, denies any fever or chills. Leaves her last colonoscopy could've been within the last 6 months however she is unsure. PAST MEDICAL HISTORY: See list. PAST SURGICAL HISTORY: See list. MEDICATIONS: See list. ALLERGIES: See list. SOCIAL HISTORY: No illicit drug use. REVIEW OF SYSTEMS: CONSTITUTIONAL: Denies fever or chills. HEENT: Denies blurred vision, vision changes, or eye pain. Denies hemoptysis CARDIOVASCULAR: Denies chest pain or pressure. RESPIRATORY: No shortness of breath. GASTROINTESTINAL: See HPI for pertinent findings HEMATOLOGIC: Denies bleeding disorders. GENITOURINARY: Denies any blood in urine or increased urinary frequency. SKIN: Denies pruitis. Denies rash. PHYSICAL EXAM: VITAL SIGNS: Reviewed GENERAL: Well-developed in no acute distress. HEENT: No sclera icterus. Extraocular movements grossly intact. Moist buccal mucosa. Head is atraumatic, normocephalic. No nasal drainage. ABDOMEN: Soft. Obese. Nondistended. Tenderness with palpation to right lower quadrant. NEUROLOGIC: Alert and oriented. Cranial nerves II through XII grossly intact. LABORATORY DATA: WBC 10.2 hemoglobin 13.7 platelet count 203,000 Sodium 136 potassium 3.7 BUN 9 creatinine 0.6 Bilirubin 0.4 AST and 2020 alk phos 68 IMAGING: CT of the abdomen and pelvis which report suboptimal study. Persistent postsurgical change to distal colonic loops in the pelvis which are more prominent and fecal filled. Consider moderate distal colonic fecal stasis. No suspicious proximal dilation to suggest obstruction. No significant change from most recent CT ASSESSMENT: 1. Abdominal pain 2. Distal colonic loops, more prominent and fecal filled, consider moderate distal colonic fecal stasis per CT abdomen and pelvis 3. History of Crohn's disease PLAN: 1. Keep nothing by mouth for now 2. CRP, sed rate ordered 4. Protonix for GI prophylaxis 5. Further recommendations forthcoming per surgeon Thank you for this consultation. The impression and plan of care has been dictated as directed. Dr. Abbott I performed a history and examination of this patient, discussed the same with the dictator. I agree with the dictator's note ,documented as a scribe. Any additional findings or plans will be noted. I have personally seen and examined the patient, reviewed the VISUAL AND STOCK ASSOCIATE /PAs history, exam and MDM and agree with the assessment and plan as written. Based on total visit time, I have performed more than 50% of the visit. As above: Patient with abdominal pain. History of Crohn's disease. Apparently has a history of previous J-pouch reconstruction at [facility]. Films reviewed. Patient does have some bowel loops that have evidence of fecal stasis. This is seen extending down to the pelvis. No obvious stricture or significant [place] inflammatory changes noted. Continue stool softeners and gentle cathartics. Check inflammatory markers. Certainly GI evaluation would be beneficial but apparently they are not available this week. No surgical plans at this time. Review of Systems A 14 point review of systems was completed all pertinent positives and negatives as stated in HPI Past Medical History Past Medical History: Fibromyalgia Additional Past Medical History / Comment(s): ulcerative colitis; endometriosis; arthritis; Ovarian cyst, Chrons History of Any Multi-Drug Resistant Organisms: C-DIFF Year Discovered:: March 2019 MDRO Source:: stool Past Surgical History: Adenoidectomy, Bowel Resection, Ear Surgery, Tonsillectomy, Tubal Ligation, Uterine Ablation Additional Past Surgical History / Comment(s): colon resection; Past Anesthesia/Blood Transfusion Reactions: No Reported Reaction Past Psychological History: ADD/ADHD, Anxiety Smoking Status: Current every day smoker Past Alcohol Use History: Occasional Past Drug Use History: Marijuana Medications and Allergies Home Medications Medication Instructions Recorded Confirmed Type Famotidine [Pepcid] 20 mg PO HS 02/24/20 06/13/21 History Omeprazole [PriLOSEC] 40 mg PO DAILY 06/13/21 06/13/21 History Allergies Allergy/AdvReac Type Severity Reaction Status Date / Time adalimumab [From Humira] Allergy Rash/Hives Verified 06/13/21 06:45 azathioprine [From Imuran] Allergy Swelling Verified 06/13/21 06:45 caffeine Allergy Unknown Verified 06/13/21 06:45 [From Excedrin Migraine] hypochlorous acid Allergy Swelling Verified 06/13/21 06:45 [From Levicyn Antipruritic] morphine Allergy Rash/Hives Verified 06/13/21 06:45 prochlorperazine Allergy Confusion Verified 06/13/21 06:45 [From Compazine] sodium chloride Allergy Swelling Verified 06/13/21 06:45 [From Levicyn Antipruritic] sodium hypochlorite solution Allergy Swelling Verified 06/13/21 06:45 [From Levicyn Antipruritic] sodium magnesium Allergy Swelling Verified 06/13/21 06:45 fluorosilicate [From Levicyn Antipruritic] sodium phosphate Allergy Swelling Verified 06/13/21 06:45 [From Levicyn Antipruritic] Surgical - Exam Vital Signs Temp Pulse Resp BP Pulse Ox 98.1 F 108 H 18 153/89 100 06/13/21 02:10 06/13/21 02:10 06/13/21 02:10 06/13/21 02:10 06/13/21 02:10 Results - Labs 06/13/21 03:00 06/13/21 03:00 Abnormal Lab Results - Last 24 Hours (Table) 06/13/21 06/13/21 Range/Units 03:00 03:00 Neutrophils # 8.6 H (1.3-7.7) k/uL Lymphocytes # 0.9 L (1.0-4.8) k/uL Sodium 136 L (137-145) mmol/L Diabetes panel 06/13/21 Range/Units 03:00 Sodium 136 L (137-145) mmol/L Potassium 3.7 (3.5-5.1) mmol/L Chloride 105 (98-107) mmol/L Carbon Dioxide 22 (22-30) mmol/L BUN 9 (7-17) mg/dL Creatinine 0.60 (0.52-1.04) mg/dL Glucose 94 (74-99) mg/dL Calcium 8.4 (8.4-10.2) mg/dL AST 31 (14-36) U/L ALT 21 (4-34) U/L Alkaline Phosphatase 68 (38-126) U/L Total Protein 6.6 (6.3-8.2) g/dL Albumin 3.7 (3.5-5.0) g/dL Calcium panel 06/13/21 Range/Units 03:00 Calcium 8.4 (8.4-10.2) mg/dL Albumin 3.7 (3.5-5.0) g/dL Pituitary panel 06/13/21 Range/Units 03:00 Sodium 136 L (137-145) mmol/L Potassium 3.7 (3.5-5.1) mmol/L Chloride 105 (98-107) mmol/L Carbon Dioxide 22 (22-30) mmol/L BUN 9 (7-17) mg/dL Creatinine 0.60 (0.52-1.04) mg/dL Glucose 94 (74-99) mg/dL Calcium 8.4 (8.4-10.2) mg/dL Adrenal panel 06/13/21 Range/Units 03:00 Sodium 136 L (137-145) mmol/L Potassium 3.7 (3.5-5.1) mmol/L Chloride 105 (98-107) mmol/L Carbon Dioxide 22 (22-30) mmol/L BUN 9 (7-17) mg/dL Creatinine 0.60 (0.52-1.04) mg/dL Glucose 94 (74-99) mg/dL Calcium 8.4 (8.4-10.2) mg/dL Total Bilirubin 0.4 (0.2-1.3) mg/dL AST 31 (14-36) U/L ALT 21 (4-34) U/L Alkaline Phosphatase 68 (38-126) U/L Total Protein 6.6 (6.3-8.2) g/dL Albumin 3.7 (3.5-5.0) g/dL
[2021-06-13] MEDS: HYDROmorphone 0.5 MG/0.5 ML SYRINGE IVP PRN ×4 (12:07→23:53)
[2021-06-13 14:10] LABS: Appearance,Urine Cloudy (Clear); Bilirubin,Urine Negative (Negative); Blood,Urine Negative (Negative); Color,Urine Yellow; Glucose,Urine (UA) Negative (Negative); Hyaline Casts,Urine 14 /lpf (0-2); Ketones,Urine Trace (Negative); Leukocyte Esterase,Urine Moderate (Negative); Mucus,Urine Many /hpf; Nitrite,Urine Negative (Negative); PH, Urine 5.5 (5.0-8.0); Protein,Urine 1+ (Negative); RBC,Urine 4 /hpf (0-5); Specific Gravity,Urine 1.027 (1.001-1.035); Squamous Epithelial Cell,Urine 7 /hpf (0-4); Urobilinogen,Urine <2.0 mg/dL (<2.0); WBC,Urine 60 /hpf (0-5)
[2021-06-13] MEDS: HEPARIN SODIUM,PORCINE/PF 5,000 UNIT/0.5 ML SYRINGE SQ SCH ×2 (16:20→23:29)
[2021-06-13 23:18] LABS: Basophils % (A) 0 %; Eosinophils % (A) 0 %; HGB 14.2 gm/dL (11.4-16.0); Lymphocytes # (A) 0.6 k/uL (1.0-4.8); Lymphocytes % (A) 4 %; MCH 29.4 pg (25.0-35.0); MCHC 33.1 g/dL (31.0-37.0); MCV 88.7 fL (80.0-100.0); Mean Platelet Volume 8.2; Monocytes # (A) 0.6 k/uL (0-1.0); Monocytes % (A) 3 %; Neutrophils # (A) 15.3 k/uL (1.3-7.7); Neutrophils % (A) 92 %; Platelet Count 220 k/uL (150-450); RBC 4.84 m/uL (3.80-5.40); WBC 16.8 k/uL (3.8-10.6)
[2021-06-14] MEDS: HYDROmorphone 0.5 MG/0.5 ML SYRINGE IVP PRN ×6 (03:07→21:06)
[2021-06-14] MEDS ORDERED: HYDROmorphone 0.5 MG/0.5 ML SYRINGE IVP STA (06:03)
[2021-06-14 07:14] LABS: MCH 29.3 pg (25.0-35.0); MCHC 33.3 g/dL (31.0-37.0); Platelet Count 238 k/uL (150-450); RBC 4.43 m/uL (3.80-5.40); RDW 13.9 % (11.5-15.5); WBC 12.6 k/uL (3.8-10.6)
[2021-06-14] MEDS: SODIUM CHLORIDE 0.9% 1,000 ML IV SCH ×3 (08:29→20:51)
[2021-06-14] MEDS: HEPARIN SODIUM,PORCINE/PF 5,000 UNIT/0.5 ML SYRINGE SQ SCH ×2 (08:30→16:09)
[2021-06-14] MEDS: ONDANSETRON 4 MG/2 ML VIAL IVP PRN ×2 (08:30→16:35)
[2021-06-14] MEDS: PANTOPRAZOLE 40 MG/10 ML VIAL IV SCH (08:31)
[2021-06-14] MEDS: methylPREDNISolone SOD SUCCI 40 MG/ML 1 ML VIAL IV SCH ×2 (09:25→16:09)
[2021-06-14] MEDS: CEPHALEXIN 500 MG CAP PO SCH ×2 (09:25→21:06)
--- NOTE | 2021-06-14 10:20 | P.PN ---
Subjective Progress Note Date: 06/14/21 History of Presenting Illness: Patient is a very pleasant 35-year-old female with a past medical history of Crohn's disease and endometriosis. She presented to the emergency department with a chief complaint of abdominal pain. The patient underwent full evaluation in the emergency department CBC and CMP were unremarkable. CRP was slightly elevated at 1.8. CT abdomen and pelvis revealed fecal filled distal colonic loops showing no suspicious proximal dilation to suggest obstruction, likely moderate distal colonic fecal stasis. ED RN reports attempts were made to give patient a enema, but patient was unable to hold enema in and pt declined further attempts. Patient was then medicated with Dilaudid and given magnesium citrate. She was then admitted under our services with consultation to general surgery. Patient seen and fully evaluated at bedside. She reports that she was recently on Remicade but this was discontinued one month ago by her GI specialist. Patient reports having diffuse abdominal pain described as contractions. She denies having any chances of . Denies experiencing any fevers, chills, diaphoresis, chest pain, palpitations, shortness of breath, nausea, vomiting, hematuria, dysuria, frequency, urgency, or experiencing any melena, hematochezia or diarrhea. In the emergency department patient was given magnesium citrate which resulted in production of multiple liquid bowel movements. . However despite continued bowel movements patient reports continued pains to suprapubic and right lower quadrant of abdomen. Urinalysis contaminated but appears positive for infection. Patient started on cephalexin at this time. Urine hCG was negative. Patient was seen and fully evaluated by general surgery recommending patient be given IV Solu-Medrol 24 hours and Flagyl with plans to discharge home tomorrow morning on oral Flagyl and oral prednisone taper. Upon discharge, patient will need to follow-up in 1-2 weeks with , her CANCER CENTER DIRECTOR for follow-up on her endometriosis and will need to follow up with Dr. Nino, electrolysis operator/IBD specialist at [facility] in 1 week Physical exam: Patient seen and fully evaluated at the bedside this morning. She has had no further episodes of vomiting since last night and continues to report bowel function. Patient reports is no longer liquid and now describes as loose brown stool. Patient does report continued discomfort to abdomen relieved with pain medication. General surgery starting patient on steroids. Patient denies having any headache, lightheadedness, dizziness, chest pain, palpitations, or shortness of breath. Vital signs unremarkable. Labs revealed mild leukocytosis with WBC count of 12.6 otherwise no significant abnormalities. Plan is for discharge home tomorrow morning with follow-ups as recommended above. Vital signs reviewed and stable. General: Nontoxic, no distress and appears stated age. Very thin build. Derm: Skin warm and dry, normal coloration for ethnicity. Head: Atraumatic, normocephalic and symmetric. Eyes: EOMs intact, no lid lag, and anicteric sclera Mouth: no lip lesions, mucus membranes moist Cardiovascular: regular rate and rhythm with normal S1S2, no murmur, positive posterior tibial pulses bilaterally, and cap refill < 2 seconds. Lungs: Respirations even, regular, and unlabored on room air. Lungs CTA bilaterally, no rhonchi, no rales, no wheezing, and no accessory muscle usage. Abdominal: soft,diffuse abdominal tenderness upon palpation, no guarding, no appreciable organomegaly Ext: ROM intact. No gross muscle atrophy, no edema, no contractures Neuro: Speech clear, face symmetrical and CN II-XII grossly intact with no noted focal neuro deficits Psych: Alert and oriented to person, place, time, and situation. Appropriate and pleasant affect. Assessment and Plan of Care: Abdominal pain Moderate distal colonic fecal stasis History of Crohn's disease History of Endometriosis -Diet advance to clear liquid diet and patient tolerating well. -Hydration with IV fluids -Mag citrate 1 dose was successful in reports of moderate liquid stool output -Gen. surgery following, started patient on steroids and Flagyl. -Symptomatic care and pain management -Bentyl 1 dose was given -Urinalysis contaminated but appeared positive for infection, patient started on cephalexin. Urine hCG was negative. CODE STATUS: Full code DVT prophylaxis: Heparin Discussed with: Patient and RN Anticipated discharge date: Tomorrow morning Anticipated discharge place: Home A total of 38 minutes was spent on the care of this complex patient more than 50% of the time was spent in counseling and care coordination. Objective - Vital Signs Vital signs: Vital Signs Temp 98.5 F 06/14/21 07:00 Pulse 94 06/14/21 08:00 Resp 20 06/14/21 08:00 BP 106/70 06/14/21 07:00 Pulse Ox 94 L 06/14/21 07:00 Intake & Output 06/13/21 06/14/21 06/14/21 18:59 06:59 18:59 Intake Total 0 Output Total 101 Balance -101 Weight 51.71 kg Intake: Oral 0 Output: Urine 1 Emesis 100 Other: Voiding Method Toilet Toilet - Labs CBC & Chem 7: 06/14/21 06:26 06/13/21 03:00 Labs: Abnormal Lab Results - Last 24 Hours (Table) 06/13/21 06/13/21 06/13/21 Range/Units 03:00 14:00 22:13 WBC 16.8 H (3.8-10.6) k/uL Neutrophils # 15.3 H (1.3-7.7) k/uL Lymphocytes # 0.6 L (1.0-4.8) k/uL C-Reactive Protein 1.8 H (<1.0) mg/dL Urine Appearance Cloudy H (Clear) Urine Protein 1+ H (Negative) Urine Ketones Trace H (Negative) Ur Leukocyte Esterase Moderate H (Negative) Urine WBC 60 H (0-5) /hpf Ur Squamous Epith Cells 7 H (0-4) /hpf Hyaline Casts 14 H (0-2) /lpf Urine Mucus Many H (None) /hpf 06/14/21 Range/Units 06:26 WBC 12.6 H (3.8-10.6) k/uL Neutrophils # (1.3-7.7) k/uL Lymphocytes # (1.0-4.8) k/uL C-Reactive Protein (<1.0) mg/dL Urine Appearance (Clear) Urine Protein (Negative) Urine Ketones (Negative) Ur Leukocyte Esterase (Negative) Urine WBC (0-5) /hpf Ur Squamous Epith Cells (0-4) /hpf Hyaline Casts (0-2) /lpf Urine Mucus (None) /hpf Microbiology - Last 24 Hours (Table) 06/13/21 14:00 Urine Culture - Preliminary Urine,Voided
--- NOTE | 2021-06-14 10:40 | P.PN ---
Subjective Progress Note Date: 06/14/21 CHIEF COMPLAINT: Abdominal pain HISTORY OF PRESENT ILLNESS: Patient was seen and examined is a follow-up today. She states her abdominal pain is more of a pressure. She had several bowel movements yesterday after given magnesium citrate. She denied any blood in her stool. She did have some emesis but states that this after she is given IV medication. She's been afebrile. She did have a mild elevation in her C- reactive protein 1.8, sed rate was normal at 20. Repeat WBC 12.6 hemoglobin 13. PHYSICAL EXAM: VITAL SIGNS: Reviewed. GENERAL: Well-developed in no acute distress. HEENT: No sclera icterus. Extraocular movements grossly intact. Moist buccal mucosa. Head is atraumatic, normocephalic. ABDOMEN: Soft. Nondistended. Diffuse tenderness, mostly in the lower abd ominal region. NEUROLOGIC: Alert and oriented. Cranial nerves II through XII grossly intact. ASSESSMENT: 1. Abdominal pain 2. Distal colonic loops, more prominent and fecal filled, consider moderate distal colonic fecal stasis per CT abdomen and pelvis 3. History of Crohn's disease with history of proctitis PLAN: 1. Advance to clear liquid diet 2. Solu-Medrol 20 mg IV every 8 hours 4. Protonix for GI prophylaxis 5. Recommend steroid taper dose on discharge. Follow-up with GI specialist down at [facility] 6. No plans on surgical intervention Thank you for this consultation. The impression and plan of care has been dictated as directed. Dr. Abbott I performed a history and examination of this patient, discussed the same with the dictator. I agree with the dictator's note ,documented as a scribe. Any additional findings or plans will be noted. I have personally seen and examined the patient, reviewed the SENIOR RESEARCH MANAGER /PAs history, exam and MDM and agree with the assessment and plan as written. Based on total visit time, I have performed more than 50% of the visit. As above: Patient says her pain is improved today however not as improved as she had hoped. Labs noted. White blood cell count is improved. She is afebrile without tachycardia. Remains tender diffusely increased in the left lower quadrant. She has had bowel movements but she is still vomiting at times. Patient states now that much of her issues over the years have been related to severe endometriosis and she questions whether she actually in fact had Crohn's disease at any point. Will add Flagyl to broaden coverage at this time. Agree with IV steroids to see if some of her issues could be related to pouchitis or active small bowel Crohn's. If the patient does not improve clinically would recommend transfer to [facility] where her colorectal surgeon and GI doctor are present. I will be out of town after today. Dr. Perez and Dr. Hardwick will be covering. Objective - Vital Signs Vital signs: Vital Signs Temp 98.5 F 06/14/21 07:00 Pulse 94 06/14/21 08:00 Resp 20 06/14/21 08:00 BP 106/70 06/14/21 07:00 Pulse Ox 94 L 06/14/21 07:00 Intake & Output 06/13/21 06/14/21 06/14/21 18:59 06:59 18:59 Intake Total 0 Output Total 101 Balance -101 Weight 51.71 kg Intake: Oral 0 Output: Urine 1 Emesis 100 Other: Voiding Method Toilet Toilet - Labs CBC & Chem 7: 06/14/21 06:26 06/13/21 03:00 Labs: Abnormal Lab Results - Last 24 Hours (Table) 06/13/21 06/13/21 06/13/21 Range/Units 03:00 14:00 22:13 WBC 16.8 H (3.8-10.6) k/uL Neutrophils # 15.3 H (1.3-7.7) k/uL Lymphocytes # 0.6 L (1.0-4.8) k/uL C-Reactive Protein 1.8 H (<1.0) mg/dL Urine Appearance Cloudy H (Clear) Urine Protein 1+ H (Negative) Urine Ketones Trace H (Negative) Ur Leukocyte Esterase Moderate H (Negative) Urine WBC 60 H (0-5) /hpf Ur Squamous Epith Cells 7 H (0-4) /hpf Hyaline Casts 14 H (0-2) /lpf Urine Mucus Many H (None) /hpf 06/14/21 Range/Units 06:26 WBC 12.6 H (3.8-10.6) k/uL Neutrophils # (1.3-7.7) k/uL Lymphocytes # (1.0-4.8) k/uL C-Reactive Protein (<1.0) mg/dL Urine Appearance (Clear) Urine Protein (Negative) Urine Ketones (Negative) Ur Leukocyte Esterase (Negative) Urine WBC (0-5) /hpf Ur Squamous Epith Cells (0-4) /hpf Hyaline Casts (0-2) /lpf Urine Mucus (None) /hpf Microbiology - Last 24 Hours (Table) 06/13/21 14:00 Urine Culture - Preliminary Urine,Voided
[2021-06-14] MEDS: metroNIDAZOLE-NS PMX 500 MG in SALINE 1 100ML.BAG IVPB SCH (16:47)
[2021-06-14 17:17] LABS: HCT 36.7 % (34.0-46.0); HGB 12.2 gm/dL (11.4-16.0); MCHC 33.1 g/dL (31.0-37.0); MCV 87.6 fL (80.0-100.0); Mean Platelet Volume 7.8; Platelet Count 235 k/uL (150-450); RBC 4.19 m/uL (3.80-5.40); RDW 13.9 % (11.5-15.5); WBC 11.6 k/uL (3.8-10.6)
[2021-06-15] MEDS: metroNIDAZOLE-NS PMX 500 MG in SALINE 1 100ML.BAG IVPB SCH ×2 (00:44→09:19)
[2021-06-15] MEDS: ONDANSETRON 4 MG/2 ML VIAL IVP PRN (00:45)
[2021-06-15] MEDS: HYDROmorphone 0.5 MG/0.5 ML SYRINGE IVP PRN ×4 (00:45→14:25)
[2021-06-15] MEDS: HEPARIN SODIUM,PORCINE/PF 5,000 UNIT/0.5 ML SYRINGE SQ SCH ×2 (00:46→09:19)
[2021-06-15] MEDS: methylPREDNISolone SOD SUCCI 40 MG/ML 1 ML VIAL IV SCH ×2 (00:46→09:18)
[2021-06-15 01:22] LABS: HGB 11.5 gm/dL (11.4-16.0); MCH 28.3 pg (25.0-35.0); MCHC 31.9 g/dL (31.0-37.0); MCV 88.9 fL (80.0-100.0); Mean Platelet Volume 7.8; Platelet Count 225 k/uL (150-450); RBC 4.05 m/uL (3.80-5.40); RDW 13.4 % (11.5-15.5); WBC 10.7 k/uL (3.8-10.6)
[2021-06-15] MEDS: SODIUM CHLORIDE 0.9% 1,000 ML IV SCH ×2 (05:34→12:10)
[2021-06-15] MEDS: PANTOPRAZOLE 40 MG/10 ML VIAL IV SCH (09:18)
[2021-06-15] MEDS: CEPHALEXIN 500 MG CAP PO SCH (09:19)
[2021-06-15 10:47] LABS: HCT 32.7 % (37.2-46.3); HGB 10.4 g/dL (12.0-15.0); MCH 27.7 pg (27.0-32.0); MCHC 31.8 g/dL (32.0-37.0); NRBC Per 100 WBC 0 /100 WBCS (0.0-0.0); Platelet Count 206 X 10*3/uL (140-440); RBC 3.76 X 10*6/uL (4.10-5.20); RDW 13.6 % (11.5-14.5); WBC 9.82 X 10*3/uL (4.50-10.00)
[2021-06-15 10:57] LABS: ALT 13 U/L (8-44); AST 14 U/L (13-35); African American GFR (CKD) 158.6 (60.0-200.0); Albumin 2.9 g/dL (3.8-4.9); Albumin/Globulin Ratio 1.38 (1.60-3.17); Alkaline Phosphatase 61 U/L (41-126); BUN/Creat Ratio 24.25 Ratio (12.00-20.00); Blood Urea Nitrogen 9.7 mg/dL (9.0-27.0); Calcium 7.9 mg/dL (8.7-10.3); Carbon Dioxide 23.2 mmol/L (20.0-27.5); Chloride 103 mmol/L (96-109); Globulin 2.1 g/dL (1.6-3.3); Glucose 122 mg/dL (70-110); Magnesium 2.5 mg/dL (1.5-2.4); Non-African American GFR(CKD) 136.9 (60.0-200.0); Sodium 135 mmol/L (135-145); Total Bilirubin <0.15 mg/dL (0.30-1.20)
--- NOTE | 2021-06-15 14:24 | P.PN ---
Subjective Progress Note Date: 06/15/21 CHIEF COMPLAINT: Abdominal pain HISTORY OF PRESENT ILLNESS: Patient was seen and examined is a follow-up today. Patient states she does have some mild improvement in her symptoms. She did have some vomiting yesterday evening but none today. She is tolerating clear liquid diet. She has had a few loose stools. No blood reported. She's been afebrile. She is currently on Solu-Medrol 20 mg IV every 8 hours. PHYSICAL EXAM: VITAL SIGNS: Reviewed. GENERAL: Well-developed in no acute distress. HEENT: No sclera icterus. Extraocular movements grossly intact. Moist buccal mucosa. Head is atraumatic, normocephalic. ABDOMEN: Soft. Nondistended. Diffuse tenderness, mostly in the lower abdominal region. NEUROLOGIC: Alert and oriented. Cranial nerves II through XII grossly intact. ASSESSMENT: 1. Abdominal pain 2. Distal colonic loops, more prominent and fecal filled, consider moderate distal colonic fecal stasis per CT abdomen and pelvis 3. History of Crohn's disease with history of proctitis PLAN: 1. Advance diet as tolerated 2. Solu-Medrol 20 mg IV every 8 hours 3. Protonix for GI prophylaxis 4. Recommend steroid taper dose on discharge. Follow-up with GI specialist down at [facility] 5. No plans on surgical intervention 6. Patient is cleared for discharge by general surgery. Outpatient follow up with specialist at [facility] Thank you for this consultation. The impression and plan of care has been dictated as directed. Dr. Perez I performed a history and examination of this patient, discussed the same with the dictator. I agree with the dictator's note ,documented as a scribe. Any a dditional findings or plans will be noted. Objective - Vital Signs Vital signs: Vital Signs Temp 98.1 F 06/15/21 07:00 Pulse 74 06/15/21 08:00 Resp 16 06/15/21 08:00 BP 102/72 06/15/21 07:00 Pulse Ox 98 06/15/21 07:00 Intake & Output 06/14/21 06/15/21 06/15/21 18:59 06:59 18:59 Intake Total 400 Balance 400 Intake: Oral 400 Other: Voiding Method Toilet Toilet Toilet # Voids 4 1 # Emeses 0 - Labs CBC & Chem 7: 06/15/21 07:02 06/15/21 07:02 Labs: Abnormal Lab Results - Last 24 Hours (Table) 06/14/21 06/15/21 06/15/21 Range/Units 16:54 01:15 07:02 WBC 11.6 H 10.7 H (3.8-10.6) k/uL RBC 3.76 L (4.10-5.20) X 10*6/uL Hgb 10.4 L (12.0-15.0) g/dL Hct 32.7 L (37.2-46.3) % MCHC 31.8 L (32.0-37.0) g/dL Anion Gap (10.00-18.00) mmol/L Creatinine (0.6-1.5) mg/dL BUN/Creatinine Ratio (12.00-20.00) Ratio Glucose (70-110) mg/dL Calcium (8.7-10.3) mg/dL Magnesium (1.5-2.4) mg/dL Total Bilirubin (0.30-1.20) mg/dL Total Protein (6.2-8.2) g/dL Albumin (3.8-4.9) g/dL Albumin/Globulin Ratio (1.60-3.17) g/dL 06/15/21 Range/Units 07:02 WBC (3.8-10.6) k/uL RBC (4.10-5.20) X 10*6/uL Hgb (12.0-15.0) g/dL Hct (37.2-46.3) % MCHC (32.0-37.0) g/dL Anion Gap 8.80 L (10.00-18.00) mmol/L Creatinine 0.4 L (0.6-1.5) mg/dL BUN/Creatinine Ratio 24.25 H (12.00-20.00) Ratio Glucose 122 H (70-110) mg/dL Calcium 7.9 L (8.7-10.3) mg/dL Magnesium 2.5 H (1.5-2.4) mg/dL Total Bilirubin <0.15 L (0.30-1.20) mg/dL Total Protein 5.0 L (6.2-8.2) g/dL Albumin 2.9 L (3.8-4.9) g/dL Albumin/Globulin Ratio 1.38 L (1.60-3.17) g/dL Microbiology - Last 24 Hours (Table) 06/13/21 14:00 Urine Culture - Final Urine,Voided
--- NOTE | 2021-06-15 15:08 | P.DS ---
Providers Date of admission: 06/13/21 09:57 Expected date of discharge: 06/15/21 Attending physician: Fela Slater MD Consults: 06/13/21 08:31 Consult Physician Routine Consulting Provider: Pablo Abbott Consult Reason/Comments: Intractable abdominal pain Do you want consulting provider notified?: Yes Primary care physician: Stated None Hospital Course: Abdominal pain Moderate distal colonic fecal stasis History of Crohn's disease History of Endometriosis Patient is a very pleasant 35-year-old female with a past medical history of Crohn's disease and endometriosis. She presented to the emergency department with a chief complaint of abdominal pain. The patient underwent full evaluation in the emergency department CBC and CMP were unremarkable. CRP was slightly elevated at 1.8. CT abdomen and pelvis revealed fecal filled distal colonic loops showing no suspicious proximal dilation to suggest obstruction, likely moderate distal colonic fecal stasis. ED RN reports attempts were made to give patient a enema, but patient was unable to hold enema in and pt declined further attempts. Patient was then medicated with Dilaudid and given magnesium citrate. She was then admitted under our services with consultation to general surgery. Patient seen and fully evaluated at bedside. She reports that she was recently on Remicade but this was discontinued one month ago by her GI specialist. In the emergency department patient was given magnesium citrate which resulted in production of multiple liquid bowel movements. . However despite continued bowel movements patient reported continued pains to suprapubic and right lower quadrant of abdomen. Urinalysis contaminated but appears positive for infection . Patient started on cephalexin at this time and discharged with total 5 day course. Urine hCG was negative. Patient was seen and fully evaluated by general surgery recommending patient be given IV Solu-Medrol 24 hours and Flagyl with plans to discharge oral prednisone taper. Upon discharge, patient will need to follow-up in 1-2 weeks with , her RECORDS MANAGEMENT TECHNICIAN for follow-up on her endometriosis and will need to follow up with Dr. Nino, perfusionist/IBD specialist at [facility] in 1 week Gen: awake, alert HEENT: normocephalic, atraumatic, good hearing acuity, moist mucous membranes Resp: good air exchange, breathing comfortably with no accessory muscle use CVS: good distal perfusion x 4, GI: Nondistended, diffusely tender to palpation. : no SPT, no CVAT, block catheter not present MSK: no pitting edema, no clubbing Neuro: non-focal, moving all extremities Psych: cooperative, euthymic mood Patient Condition at Discharge: Good Plan - Discharge Summary New Discharge Prescriptions: New predniSONE 10 mg PO DAILY #74 tab HYDROcodone/APAP 5-325MG [[place] 5-325] 1 tab PO Q4HR PRN 3 Days #18 tab PRN Reason: Moderate Breakthrough Pain Continue Famotidine [Pepcid] 20 mg PO HS Omeprazole [PriLOSEC] 40 mg PO DAILY Discharge Medication List Famotidine [Pepcid] 20 mg PO HS 02/24/20 [History] Omeprazole [PriLOSEC] 40 mg PO DAILY 06/13/21 [History] predniSONE 10 mg PO DAILY #74 tab 06/14/21 [Rx] HYDROcodone/APAP 5-325MG [[place] 5-325] 1 tab PO Q4HR PRN 3 Days #18 tab 06/15/21 [Rx] Follow up Appointment(s)/Referral(s): None,Stated [Primary Care Provider] - 1-2 days Patient Instructions/Handouts: Acute Abdominal Pain (DC) Activity/Diet/Wound Care/Special Instructions: Activity: As tolerated. Take breaks as needed. Diet: Heart healthy and carb consistent diet. Avoid salts, or foods with hidden salts such as canned or boxed foods and frozen dinners. Extra salt makes your heart work harder and traps the fluid in your body for longer. Special Instructions: Take all of your medications as directed and remember to keep all of your doctor's appointments and follow-up as needed. You will need to follow-up in 1-2 weeks with , your RECORDS MANAGEMENT TECHNICIAN for follow- up on your endometriosis. You will need to follow up in 1 week with your perfusionist/IBD specialist at [facility] Dr. Nino. Thank you for allowing us to participate in your care, it was truly a pleasure having you for our patient!!! Discharge Disposition: HOME SELF-CARE
[2021-06-15 16:22] VITALS: BP 117/79; PULSE 79; RESP 20; TEMP 97.5
== END 2021-06-15 16:31 | disposition home or self-care (01) ==
LOC: EC 02:06 → 6NMEDSUR 09:57
PROVIDERS: ADMIT Internal Medicine; ATTEND Internal Medicine
DX: K59.89 Other specified functional intestinal disorders (principal); K50.90 Crohn's disease, unspecified, without complications; M79.7 Fibromyalgia; M19.90 Unspecified osteoarthritis, unspecified site; N83.209 Unspecified ovarian cyst, unspecified side; N80.9 Endometriosis, unspecified; D72.829 Elevated white blood cell count, unspecified; F17.200 Nicotine dependence, unspecified, uncomplicated; F41.9 Anxiety disorder, unspecified; F90.9 Attention-deficit hyperactivity disorder, unspecified type; Z79.899 Other long term (current) drug therapy; Z88.5 Allergy status to narcotic agent; Z88.8 Allergy status to other drugs, medicaments and biological substances; Z91.048 Other nonmedicinal substance allergy status; Z16.24 Resistance to multiple antibiotics; Z98.51 Tubal ligation status; Z90.49 Acquired absence of other specified parts of digestive tract; Z98.0 Intestinal bypass and anastomosis status; Z98.890 Other specified postprocedural states
CPT/HCPCS: 96376 ×4; 96361 ×3; 96365; 96366; 96372 ×4; 96375 ×2; 99285; 36415; 80053 ×2; 85652; 83605; 83735; 85025; 85027 ×2; 86140; 81001; 81025; 87086; 74176; G0378 ×3; J0500; J2920 ×2; J2405 ×3; C9113 ×3; J1170 ×3; J1644 ×3; 96360

== ENCOUNTER 2023-03-22 16:56 | Emergency (ER) | payer OTHER ==
[2023-03-22 17:41] LABS: Basophils # (A) 0.1 k/uL (0-0.2); Basophils % (A) 1 %; Eosinophils # (A) 0.2 k/uL (0-0.7); Eosinophils % (A) 2 %; HCT 42.1 % (34.0-46.0); HGB 13.9 gm/dL (11.4-16.0); Lymphocytes # (A) 1.7 k/uL (1.0-4.8); Lymphocytes % (A) 22 %; MCH 26.9 pg (25.0-35.0); MCV 81.5 fL (80.0-100.0); Mean Platelet Volume 7.3; Monocytes # (A) 0.4 k/uL (0-1.0); Monocytes % (A) 5 %; Neutrophils # (A) 5.3 k/uL (1.3-7.7); Neutrophils % (A) 68 %; Platelet Count 246 k/uL (150-450); RBC 5.16 m/uL (3.80-5.40); RDW 13.8 % (11.5-15.5); WBC 7.8 k/uL (3.8-10.6)
[2023-03-22 17:51] LABS: ALT 25 U/L (4-34); AST 20 U/L (14-36); African American GFR (CKD) >90 (>60 ml/min/1.73 sqM); Albumin 4.1 g/dL (3.5-5.0); Alkaline Phosphatase 64 U/L (38-126); Amylase 60 U/L (30-110); Anion Gap 8 mmol/L; Blood Urea Nitrogen 5 mg/dL (7-17); Carbon Dioxide 26 mmol/L (22-30); Chloride 105 mmol/L (98-107); Glucose 88 mg/dL (74-99); Lipase 95 U/L (23-300); Non-African American GFR(CKD) >90 (>60 ml/min/1.73 sqM); Potassium 4.5 mmol/L (3.5-5.1); Sodium 139 mmol/L (137-145); Total Bilirubin 0.5 mg/dL (0.2-1.3); Total Protein 7.2 g/dL (6.3-8.2)
[2023-03-22 17:54] LABS: INR 0.9 (<1.2); Partial Thromboplastin Time 26.5 sec (22.0-30.0); Prothrombin Time 9.8 sec (10.0-12.5)
--- NOTE | 2023-03-22 18:00 | XR ---
EXAMINATION TYPE: XR KUB DATE OF EXAM: 03/22/2023 5:41 PM CLINICAL INDICATION:Female, 37 years old with history of abdominal pain; COMPARISON: 06/27/2019 TECHNIQUE: One radiographic view of the abdomen was obtained. FINDINGS: The bowel gas pattern is nonspecific without dilated loops of small or large bowel. There i s no evidence for organomegaly or pneumoperitoneum. The osseous structures are intact. No abnormal calcifications are present. Fecal material and gas are demonstrated throughout the colon and rectum. IMPRESSION: Nonspecific bowel gas pattern without radiographic evidence for acute process.
[2023-03-22] MEDS ORDERED: HYDROmorphone 1 MG/ML 1 ML SYRINGE IVP STA ×2 (18:37→22:22)
[2023-03-22] MEDS ORDERED: SODIUM CHLORIDE 0.9% 2,000 ML IV STA (18:37)
[2023-03-22] MEDS ORDERED: ONDANSETRON 4 MG/2 ML VIAL IVP STA ×2 (18:37→22:20)
--- NOTE | 2023-03-22 18:38 | ED ---
Abdominal Pain HPI - General Chief Complaint: Abdominal Pain Stated Complaint: Abn labs/Dizzy Time Seen by Provider: 03/22/23 17:15 Source: patient Mode of arrival: ambulatory Limitations: no limitations - History of Present Illness Initial Comments: 37-year-old female with past history of Crohn's disease presents to the emergency department reporting generalized abdominal pain, body aches, nausea with pain at her gastric stoma. States her symptoms have been going on for the past month however worsened over the past couple of days. She has a lot of pain at her stoma incision with irritation. States that this is a recurrent issue for her. Her GI doctor did increase her infusion dose 2 weeks ago however she does not feel any improvement at this time. She states that she does have some mild bleeding at times. She denies any fevers. No hematemesis. No recent steroid use. She denies any change in output from her ostomy. No urinary compl aints. No concern for . No other alleviating, precipitating or modifying factors - Related Data Home Medications Medication Instructions Recorded Confirmed Famotidine [Pepcid] 20 mg PO HS 02/24/20 06/13/21 Omeprazole [PriLOSEC] 40 mg PO DAILY 06/13/21 06/13/21 Previous Rx's Medication Instructions Recorded predniSONE 10 mg PO DAILY #74 tab 06/14/21 HYDROcodone/APAP 5-325MG [[place] 1 tab PO Q4HR PRN 3 Days #18 tab 06/15/21 5-325] HYDROcodone/APAP 7.5-325MG [[place] 1 tab PO Q4HR PRN 3 Days #18 tab 03/22/23 7.5-325] Ondansetron Odt [Zofran Odt] 4 mg PO Q8HR PRN #30 tab 03/22/23 predniSONE [Deltasone] 20 mg PO BID #10 tab 03/22/23 Allergies Allergy/AdvReac Type Severity Reaction Status Date / Time adalimumab [From Humira] Allergy Rash/Hives Verified 06/13/21 06:45 azathioprine [From Imuran] Allergy Swelling Verified 06/13/21 06:45 caffeine Allergy Unknown Verified 06/13/21 06:45 [From Excedrin Migraine] hypochlorous acid Allergy Swelling Verified 06/13/21 06:45 [From Levicyn Antipruritic] morphine Allergy Rash/Hives Verified 06/13/21 06:45 prochlorperazine Allergy Confusion Verified 06/13/21 06:45 [From Compazine] sodium chloride Allergy Swelling Verified 06/13/21 06:45 [From Levicyn Antipruritic] sodium hypochlorite solution Allergy Swelling Verified 06/13/21 06:45 [From Levicyn Antipruritic] sodium magnesium Allergy Swelling Verified 06/13/21 06:45 fluorosilicate [From Levicyn Antipruritic] sodium phosphate Allergy Swelling Verified 06/13/21 06:45 [From Levicyn Antipruritic] Review of Systems ROS Statement: Those systems with pertinent positive or pertinent negative responses have been documented in the HPI. ROS Other: All systems not noted in ROS Statement are negative. Past Medical History Past Medical History: Fibromyalgia Additional Past Medical History / Comment(s): ulcerative colitis; endometriosis; arthritis; Ovarian cyst, Chrons History of Any Multi-Drug Resistant Organisms: C-DIFF Date of last positivie culture/infection: March 2019 MDRO Source:: stool Past Surgical History: Adenoidectomy, Bowel Resection, Ear Surgery, Tonsillectomy, Tubal Ligation, Uterine Ablation Additional Past Surgical History / Comment(s): colon resection; Past Anesthesia/Blood Transfusion Reactions: No Reported Reaction Past Psychological History: ADD/ADHD, Anxiety Smoking Status: Current every day smoker Past Alcohol Use History: Occasional Past Drug Use History: Marijuana General Exam Limitations: no limitations General appearance: alert, in no apparent distress Head exam: Present: atraumatic, normocephalic, normal inspection Eye exam: Present: normal appearance, PERRL, EOMI. Absent: scleral icterus, conjunctival injection, periorbital swelling ENT exam: Present: normal exam, mucous membranes moist Neck exam: Present: normal inspection. Absent: tenderness, meningismus, lymphadenopathy Respiratory exam: Present: normal lung sounds bilaterally. Absent: respiratory distress, wheezes, rales, rhonchi, stridor Cardiovascular Exam: Present: regular rate, normal rhythm, normal heart sounds. Absent: systolic murmur, diastolic murmur, rubs, gallop, clicks GI/Abdominal exam: Present: soft, normal bowel sounds, other (Stoma mucosa julio cesar ears slightly irritated. No bleeding. Surrounding skin is clean dry and intact). Absent: distended, tenderness, guarding, rebound, rigid Extremities exam: Present: normal inspection, full ROM, normal capillary refill. Absent: tenderness, pedal edema, joint swelling, calf tenderness Back exam: Present: normal inspection Neurological exam: Present: alert, oriented X3, CN II-XII intact Psychiatric exam: Present: normal affect, normal mood Skin exam: Present: warm, dry, intact, normal color. Absent: rash Course Vital Signs 03/22/23 03/23/23 17:13 00:20 Temperature 97.9 F 98.1 F Pulse Rate 92 80 Respiratory 16 18 Rate Blood Pressure 133/94 118/77 O2 Sat by Pulse 99 98 Oximetry Medical Decision Making - Medical Decision Making Was pt. sent in by a medical professional or institution (, PA, REGISTERED NURSING PROFESSOR, urgent care, hospital, or detention...) When possible be specific @ -No Did you speak to anyone other than the patient for history (EMS, parent, family, police, friend...)? What history was obtained from this source @ -No Did you review nursing and triage notes (agree or disagree)? Why? @ -I reviewed and agree with nursing and triage notes Were old charts reviewed (outside hosp., previous admission, EMS record, old EKG, old radiological studies, urgent care reports/EKG's, detention records)? Report findings @ -No old charts were reviewed Differential Diagnosis (chest pain, altered mental status, abdominal pain women, abdominal pain men, vaginal bleeding, weakness, fever, dyspnea, syncope, headache, dizziness, GI bleed, back pain, seizure, CVA, palpatations, mental health, musculoskeletal)? @ -Differential Abdominal Pain Women: Appendicitis, Cholecystitis, diverticulosis, ischemic bowel, pancreatitis, hepatitis, UTI, gastroenteritis, AAA, incarcerated hernia, bowel obstruction, constipation, inflammatory bowel, hepatitis, peptic ulcer disease, splenic infarction, perforated viscus, vulvitis, ovarian torsion, PID, kidney stone, p lacenta abruption, this is not meant to be an all-inclusive list EKG interpreted by me (3pts min.). @ -not done X-rays interpreted by me (1pt min.). @ -None done CT interpreted by me (1pt min.). @ -yes and demonstrates no acute intra-abdominal process U/S interpreted by me (1pt. min.). @ -None done What testing was considered but not performed or refused? (CT, X-rays, U/S, labs)? Why? @ -None What meds were considered but not given or refused? Why? @ -None Did you discuss the management of the patient with other professionals (professionals i.e. , PA, REGISTERED NURSING PROFESSOR, lab, RT, psych nurse, older adult social work specialist, manager account management, teacher, pharmaceutical officer, employment evaluator/case manager)? Give summary @ -No Was smoking cessation discussed for >3mins.? @ -No Was critical care preformed (if so, how long)? @ -No Were there social determinants of health that impacted care today? How? (Homelessness, low income, unemployed, alcoholism, drug addiction, transportation, low edu. Level, literacy, decrease access to med. care, [facility], rehab)? @ -No Was there de-escalation of care discussed even if they declined (Discuss DNR or withdrawal of care, Hospice)? DNR status @ -No What co-morbidities impacted this encounter? (DM, HTN, Smoking, COPD, CAD, Cancer, CVA, ARF, Chemo, Hep., AIDS, mental health diagnosis, sleep apnea, morbid obesity)? @ -Ulcerative colitis disease with colostomy Was patient admitted / discharged? Hospital course, mention meds given and route, prescriptions, significant lab abnormalities, going to OR and other pertinent info. @ -Discharged. Upon arrival patient placed into hallway 10. Thorough history and physical exam was performed. IV was established. Patient given nausea and pain medications. Laboratory studies are conducted. CT was performed of the patient's abdomen due to her reported history of bowel obstructions. It demonstrates a parastomal hernia without incarceration or strangulation. I did discuss the results of the laboratory studies and imaging with the patient's. Recommend that she follow up with her GI doctor for further treatments. I will place her on a short course of steroids for her ulceration at stoma site. She will also be placed on nausea and pain medications. She is to return for any new or worsening symptoms. Patient agreeable with plan and was discharged in stable condition Undiagnosed new problem with uncertain prognosis? @ -Yes Drug Therapy requiring intensive monitoring for toxicity (Heparin, Nitro, Insulin, Cardizem)? @ -No Were any procedures done? @ -No Diagnosis/symptom? @ -Acute nausea and vomiting, acute abdominal pain, stoma ulceration Acute, or Chronic, or Acute on Chronic? @ -Acute on chronic Uncomplicated (without systemic symptoms) or Complicated (systemic symptoms)? @ -Complicated Side effects of treatment? @ -No Exacerbation, Progression, or Severe Exacerbation? @ -No Poses a threat to life or bodily function? How? (Chest pain, USA, NM, pneumonia, PE, COPD, DKA, ARF, appy, cholecystitis, CVA, Diverticulitis, Homicidal, Suicidal, threat to staff... and all critical care pts) @ -No - Lab Data Result diagrams: 03/22/23 17:31 03/22/23 17:31 Lab Results 03/22/23 03/22/23 03/22/23 Range/Units 17:20 17:25 17:31 WBC 7.8 (3.8-10.6) k/uL RBC 5.16 (3.80-5.40) m/uL Hgb 13.9 (11.4-16.0) gm/dL Hct 42.1 (34.0-46.0) % MCV 81.5 (80.0-100.0) fL MCH 26.9 (25.0-35.0) pg MCHC 33.0 (31.0-37.0) g/dL RDW 13.8 (11.5-15.5) % Plt Count 246 (150-450) k/uL MPV 7.3 Neutrophils % 68 % Lymphocytes % 22 % Monocytes % 5 % Eosinophils % 2 % Basophils % 1 % Neutrophils # 5.3 (1.3-7.7) k/uL Lymphocytes # 1.7 (1.0-4.8) k/uL Monocytes # 0.4 (0-1.0) k/uL Eosinophils # 0.2 (0-0.7) k/uL Basophils # 0.1 (0-0.2) k/uL PT (10.0-12.5) sec INR (<1.2) APTT (22.0-30.0) sec Sodium (137-145) mmol/L Potassium (3.5-5.1) mmol/L Chloride (98-107) mmol/L Carbon Dioxide (22-30) mmol/L Anion Gap mmol/L BUN (7-17) mg/dL Creatinine (0.52-1.04) mg/dL Est GFR (CKD-EPI)AfAm (>60 ml/min/1.73 sqM) Est GFR (CKD-EPI)NonAf (>60 ml/min/1.73 sqM) Glucose (74-99) mg/dL Plasma Lactic Acid Sidney (0.7-2.0) mmol/L Calcium (8.4-10.2) mg/dL Total Bilirubin (0.2-1.3) mg/dL AST (14-36) U/L ALT (4-34) U/L Alkaline Phosphatase (38-126) U/L Troponin I (0.000-0.034) ng/mL Total Protein (6.3-8.2) g/dL Albumin (3.5-5.0) g/dL Amylase (30-110) U/L Lipase (23-300) U/L Blood Type O Positive Blood Type Confirm O Positive Blood Type Recheck No Previous Record Bld Type Recheck Status CABO Indicated Antibody Screen NEGATIVE Spec Expiration Date 03/25/2023231903/22/23 03/22/23 03/22/23 Range/Units 17:31 17:31 17:31 WBC (3.8-10.6) k/uL RBC (3.80-5.40) m/uL Hgb (11.4-16.0) gm/dL Hct (34.0-46.0) % MCV (80.0-100.0) fL MCH (25.0-35.0) pg MCHC (31.0-37.0) g/dL RDW (11.5-15.5) % Plt Count (150-450) k/uL MPV Neutrophils % % Lymphocytes % % Monocytes % % Eosinophils % % Basophils % % Neutrophils # (1.3-7.7) k/uL Lymphocytes # (1.0-4.8) k/uL Monocytes # (0-1.0) k/uL Eosinophils # (0-0.7) k/uL Basophils # (0-0.2) k/uL PT 9.8 L (10.0-12.5) sec INR 0.9 (<1.2) APTT 26.5 (22.0-30.0) sec Sodium 139 (137-145) mmol/L Potassium 4.5 (3.5-5.1) mmol/L Chloride 105 (98-107) mmol/L Carbon Dioxide 26 (22-30) mmol/L Anion Gap 8 mmol/L BUN 5 L (7-17) mg/dL Creatinine 0.58 (0.52-1.04) mg/dL Est GFR (CKD-EPI)AfAm >90 (>60 ml/min/1.73 sqM) Est GFR (CKD-EPI)NonAf >90 (>60 ml/min/1.73 sqM) Glucose 88 (74-99) mg/dL Plasma Lactic Acid Sidney 1.1 (0.7-2.0) mmol/L Calcium 9.0 (8.4-10.2) mg/dL Total Bilirubin 0.5 (0.2-1.3) mg/dL AST 20 (14-36) U/L ALT 25 (4-34) U/L Alkaline Phosphatase 64 (38-126) U/L Troponin I (0.000-0.034) ng/mL Total Protein 7.2 (6.3-8.2) g/dL Albumin 4.1 (3.5-5.0) g/dL Amylase 60 (30-110) U/L Lipase 95 (23-300) U/L Blood Type Blood Type Confirm Blood Type Recheck Bld Type Recheck Status Antibody Screen Spec Expiration Date 03/22/23 Range/Units 17:31 WBC (3.8-10.6) k/uL RBC (3.80-5.40) m/uL Hgb (11.4-16.0) gm/dL Hct (34.0-46.0) % MCV (80.0-100.0) fL MCH (25.0-35.0) pg MCHC (31.0-37.0) g/dL RDW (11.5-15.5) % Plt Count (150-450) k/uL MPV Neutrophils % % Lymphocytes % % Monocytes % % Eosinophils % % Basophils % % Neutrophils # (1.3-7.7) k/uL Lymphocytes # (1.0-4.8) k/uL Monocytes # (0-1.0) k/uL Eosinophils # (0-0.7) k/uL Basophils # (0-0.2) k/uL PT (10.0-12.5) sec INR (<1.2) APTT (22.0-30.0) sec Sodium (137-145) mmol/L Potassium (3.5-5.1) mmol/L Chloride (98-107) mmol/L Carbon Dioxide (22-30) mmol/L Anion Gap mmol/L BUN (7-17) mg/dL Creatinine (0.52-1.04) mg/dL Est GFR (CKD-EPI)AfAm (>60 ml/min/1.73 sqM) Est GFR (CKD-EPI)NonAf (>60 ml/min/1.73 sqM) Glucose (74-99) mg/dL Plasma Lactic Acid Sidney (0.7-2.0) mmol/L Calcium (8.4-10.2) mg/dL Total Bilirubin (0.2-1.3) mg/dL AST (14-36) U/L ALT (4-34) U/L Alkaline Phosphatase (38-126) U/L Troponin I <0.012 (0.000-0.034) ng/mL Total Protein (6.3-8.2) g/dL Albumin (3.5-5.0) g/dL Amylase (30-110) U/L Lipase (23-300) U/L Blood Type Blood Type Confirm Blood Type Recheck Bld Type Recheck Status Antibody Screen Spec Expiration Date Disposition Clinical Impression: Abdominal pain, Crohn's colitis Disposition: HOME SELF-CARE Condition: Stable Instructions (If sedation given, give patient instructions): Abdominal Pain (ED) Additional Instructions: Take the steroids for the next 5 days. Use the pain and nausea medications as needed. Follow-up with your GI team as I do think that you need an EGD/col onoscopy. Return for any new or worsening symptoms Prescriptions: predniSONE [Deltasone] 20 mg PO BID #10 tab HYDROcodone/APAP 7.5-325MG [[place] 7.5-325] 1 tab PO Q4HR PRN 3 Days #18 tab PRN Reason: Pain Ondansetron Odt [Zofran Odt] 4 mg PO Q8HR PRN #30 tab PRN Reason: Nausea Is patient prescribed a controlled substance at d/c from ED?: Yes When asked, does pt state using other controlled substances?: No If prescribed controlled substance>3 days was MAPS reviewed?: Prescribed <3 Days If opioid is for acute pain is fill amount 7 days or less?: Yes Referrals: None,Stated [Primary Care Provider] - 1-2 days Time of Disposition: 23:43
--- NOTE | 2023-03-22 19:39 | CT ---
EXAMINATION TYPE: CT abdomen pelvis w con CT DLP: 667.3 mGycm, Automated exposure control for dose reduction was used. DATE OF EXAM: 03/22/2023 7:19 PM COMPARISON: 06/12/2021 CLINICAL INDICATION:Female, 37 years old with history of abdominal pain; pt states there has been ble eding around stoma x2 weeks, pain and swelling TECHNIQUE: Axial CT abdomen pelvis w con;Sagittal and coronal reformats were created on a separate w orkstation. Contrast used:100 mL of Isovue 300 with IV Contrast, (none if empty) Oral contrast used: without Oral Contrast (none if empty) FINDINGS: LOWER CHEST: Unremarkable ABDOMEN LIVER: Unremarkable GALLBLADDER AND BILE DUCTS: Unremarkable. PANCREAS: Unremarkable. SPLEEN: Unremarkable. ADRENAL GLANDS: Unremarkable. KIDNEYS AND URETERS: No evidence of hydronephrosis or renal calculus. The ureters are unremarkable. PELVIS BLADDER: Unremarkable REPRODUCTIVE: Dilated tubular structure/cystic structure in the left adnexa could represent concave l eft ovarian cyst versus hydrosalpinx. Area measures 3.4 x 3.4 cm. ABDOMEN & PELVIS STOMACH AND BOWEL: No evidence of bowel obstruction. The colon is surgically absent. Loops of bowel a nterior right lower abdomen parastomal hernia. No evidence for obstruction. No evidence fracture angu lation. No bowel wall thickening. PERITONEUM/RETROPERITONEUM: No evidence of pneumoperitoneum or free fluid. VASCULATURE: No evidence of aortic aneurysm. MUSCULOSKELETAL: No acute osseous abnormalities LYMPH NODES: No gross evidence for lymphadenopathy. SOFT TISSUE/ABDOMINAL WALL: Right lower abdominal wall parastomal hernia containing loops of small [place] wel. Fat-containing umbilical hernia. IMPRESSION: 1. Right lower abdominal wall parastomal hernia containing loops of small bowel without evidence for obstruction or strangulation. 2. Dilated tubular structure/cystic structure in the left adnexa could represent complex left ovaria n cyst versus hydrosalpinx. 3. Majority of the colon and possibly the entire colon is surgically absent.
[2023-03-22] MEDS ORDERED: methylPREDNISolone SOD SUCCI 125 MG/2 ML VIAL IV STA (22:22)
[2023-03-23] MEDS ORDERED: ONDANSETRON 4 MG ODT STARTER PACK 2 TAB BTL PO STA (00:03)
[2023-03-23 01:11] VITALS: BP 118/77; PULSE 80; RESP 18; TEMP 98.1
== END 2023-03-23 00:30 | disposition home or self-care (01) ==
LOC: EC 16:56
DX: K50.90 Crohn's disease, unspecified, without complications (principal); K52.9 Noninfective gastroenteritis and colitis, unspecified; F17.200 Nicotine dependence, unspecified, uncomplicated; F12.90 Cannabis use, unspecified, uncomplicated; Z86.59 Personal history of other mental and behavioral disorders; Z88.5 Allergy status to narcotic agent; Z88.8 Allergy status to other drugs, medicaments and biological substances
CPT/HCPCS: 99284; 96374; 96375 ×2; 96376 ×2; 96361 ×2; 36415; 86900; 86901; 80053; 82150; 83605; 83690; 84484; 85025; 85610; 85730; 86850; 74018; 74177; J2930; J2405; J1170; S0119; Q9967

== ENCOUNTER 2023-06-22 23:17 | Emergency (ER) | payer OTHER ==
[2023-06-23 00:31] VITALS: RESP 18; TEMP 98.4
--- NOTE | 2023-06-23 01:28 | ED ---
Abdominal Pain HPI - General Chief Complaint: Abdominal Pain Stated Complaint: abd pain swelling Time Seen by Provider: 06/23/23 00:12 Source: patient Mode of arrival: ambulatory Limitations: no limitations - History of Present Illness Initial Comments: 37-year-old female with a past medical history significant for Crohn's status post resection with an ostomy in place presenting to the ED with complaints of abdominal pain. Patient reports chronic issues noting right lower abdominal pain every time she eats with some associated nausea as well. States that over the past few days this seems to be worse than usual. States that secondary to this issue has follow-up with gastroenterology for the colonoscopy next month. No fever or chills. No chest pain or shortness of breath. No other complaints at this time. - Related Data Home Medications Medication Instructions Recorded Confirmed Famotidine [Pepcid] 20 mg PO HS 02/24/20 06/13/21 Omeprazole [PriLOSEC] 40 mg PO DAILY 06/13/21 06/13/21 Previous Rx's Medication Instructions Recorded predniSONE 10 mg PO DAILY #74 tab 06/14/21 HYDROcodone/APAP 5-325MG [[place] 1 tab PO Q4HR PRN 3 Days #18 tab 06/15/21 5-325] HYDROcodone/APAP 7.5-325MG [[place] 1 tab PO Q4HR PRN 3 Days #18 tab 03/22/23 7.5-325] Ondansetron Odt [Zofran Odt] 4 mg PO Q8HR PRN #30 tab 03/22/23 predniSONE [Deltasone] 20 mg PO BID #10 tab 03/22/23 HYDROcodone/APAP 7.5-325MG [[place] 1 tab PO Q4H PRN 3 Days #18 tab 05/22/23 7.5-325] Ondansetron Odt [Zofran Odt] 4 mg PO Q8HR PRN #30 tab 05/22/23 Ketorolac [Toradol] 10 mg PO Q8HR #15 tab 06/23/23 Ondansetron Odt [Zofran Odt] 4 mg PO Q8HR PRN #10 tab 06/23/23 Allergies Allergy/AdvReac Type Severity Reaction Status Date / Time adalimumab [From Humira] Allergy Rash/Hives Verified 06/22/23 23:48 azathioprine [From Imuran] Allergy Swelling Verified 06/22/23 23:48 caffeine Allergy Unknown Verified 06/22/23 23:48 [From Excedrin Migraine] hypochlorous acid Allergy Swelling Verified 06/22/23 23:48 [From Levicyn Antipruritic] morphine Allergy Rash/Hives Verified 06/22/23 23:48 prochlorperazine Allergy Confusion Verified 06/22/23 23:48 [From Compazine] sodium chloride Allergy Swelling Verified 06/22/23 23:48 [From Levicyn Antipruritic] sodium hypochlorite solution Allergy Swelling Verified 06/22/23 23:48 [From Levicyn Antipruritic] sodium magnesium Allergy Swelling Verified 06/22/23 23:48 fluorosilicate [From Levicyn Antipruritic] sodium phosphate Allergy Swelling Verified 06/22/23 23:48 [From Levicyn Antipruritic] Review of Systems ROS Statement: Those systems with pertinent positive or pertinent negative responses have been documented in the HPI. ROS Other: All systems not noted in ROS Statement are negative. Past Medical History Past Medical History: Asthma, Fibromyalgia Additional Past Medical History / Comment(s): ulcerative colitis; endometriosis; arthritis; Ovarian cyst, Chrons History of Any Multi-Drug Resistant Organisms: C-DIFF Date of last positivie culture/infection: March 2019 MDRO Source:: stool Past Surgical History: Adenoidectomy, Bowel Resection, Ear Surgery, Tonsillectomy, Tubal Ligation, Uterine Ablation Additional Past Surgical History / Comment(s): colon resection; Past Anesthesia/Blood Transfusion Reactions: No Reported Reaction Past Psychological History: ADD/ADHD, Anxiety, Depression Smoking Status: Current every day smoker, Vaper Past Alcohol Use History: Occasional, Rare Past Drug Use History: Marijuana General Exam Limitations: no limitations General appearance: alert, in no apparent distress Eye exam: Present: normal appearance Neck exam: Present: normal inspection Respiratory exam: Present: normal lung sounds bilaterally Cardiovascular Exam: Present: regular rate GI/Abdominal exam: Present: soft (No significant abdominal tenderness to palpation. Ostomy in the right lower quadrant is pink, productive, patent. Bowel sounds present.) Neurological exam: Present: alert, oriented X3 Skin exam: Present: warm, dry Course Vital Signs 06/22/23 23:33 Temperature 98.4 F Pulse Rate 89 Respiratory 18 Rate Blood Pressure 138/96 O2 Sat by Pulse 99 Oximetry Medical Decision Making - Medical Decision Making Was pt. sent in by a medical professional or institution (STEPHANIE Palm, [employer]OC[employer], urgent care, hospital, or group home...) When possible be specific @ -No Did you speak to anyone other than the patient for history (EMS, parent, family, police, friend...)? What history was obtained from this source @ -No Did you review nursing and triage notes (agree or disagree)? Why? @ -I reviewed and agree with nursing and triage notes Were old charts reviewed (outside hosp., previous admission, EMS record, old EKG, old radiological studies, urgent care reports/EKG's, group home records)? Report findings @ -No old charts were reviewed Differential Diagnosis (chest pain, altered mental status, abdominal pain women, abdominal pain men, vaginal bleeding, weakness, fever, dyspnea, syncope, headache, dizziness, GI bleed, back pain, seizure, CVA, palpatations, mental health, musculoskeletal)? @ -Differential Abdominal Pain Women: Appendicitis, Cholecystitis, diverticulosis, ischemic bowel, pancreatitis, hepatitis, UTI, gastroenteritis, AAA, incarcerated hernia, bowel obstruction, constipation, inflammatory bowel, hepatitis, peptic ulcer disease, splenic infarction, perforated viscus, vulvitis, ovarian torsion, PID, kidney stone, placenta abruption, this is not meant to be an all-inclusive list EKG interpreted by me (3pts min.). @ -None X-rays interpreted by me (1pt min.). @ -None done CT interpreted by me (1pt min.). @ -CT abdomen pelvis interpreted me which revealed no evidence of acute finding. U/S interpreted by me (1pt. min.). @ -None done What testing was considered but not performed or refused? (CT, X-rays, U/S, labs)? Why? @ -None What meds were considered but not given or refused? Why? @ -None Did you discuss the management of the patient with other professionals (professionals i.e. STEPHANIE Palm, [employer]ET[employer]OCIATE, lab, RT, psych nurse, perinatal social worker, gate manager, teacher, chief marketing officer, behavioral health case manager)? Give summary @ -No Was smoking cessation discussed for >3mins.? @ -No Was critical care preformed (if so, how long)? @ -No Were there social determinants of health that impacted care today? How? (Homelessness, low income, unemployed, alcoholism, drug addiction, transportation, low edu. Level, literacy, decrease access to med. care, fdc, rehab)? @ -No Was there de-escalation of care discussed even if they declined (Discuss DNR or withdrawal of care, Hospice)? DNR status @ -No What co-morbidities impacted this encounter? (DM, HTN, Smoking, COPD, CAD, Cancer, CVA, ARF, Chemo, Hep., AIDS, mental health diagnosis, sleep apnea, morbid obesity)? @ -Crohn's disease Was patient admitted / discharged? Hospital course, mention meds given and route, prescriptions, significant lab abnormalities, going to OR and other pertinent info. @ -Discharge 37-year-old female presenting to the ED with complaints of abdominal pain with some associated nausea every time she eats. Patient reports that this has been an ongoing issue for months and has a colonoscopy next month as scheduled for this. Reports that it seems to be a little bit worse over the past few days pro mpting presentation to the ED for further evaluation. Laboratory studies reviewed. Labs including CBC CMP amylase lipase unremarkable. Urinalysis was to be performed however patient reports that she does not feel she can urinate and would prefer we call her for results if she does have a urinary tract infection. CT abdomen pelvis revealed no evidence of acute process. Discharged home with prescriptions for Toradol and Zofran. Discussed return precautions with patient who verbalized agreement. Undiagnosed new problem with uncertain prognosis? @ -No Drug Therapy requiring intensive monitoring for toxicity (Heparin, Nitro, Insulin, Cardizem)? @ -No Were any procedures done? @ -No Diagnosis/symptom? @ -Abdominal pain Acute, or Chronic, or Acute on Chronic? @ -Acute on chronic Uncomplicated (without systemic symptoms) or Complicated (systemic symptoms)? @ -Uncomplicated Side effects of treatment? @ -No Exacerbation, Progression, or Severe Exacerbation? @ -No Poses a threat to life or bodily function? How? (Chest pain, [place], [place], pneumonia, PE, COPD, DKA, ARF, appy, cholecystitis, CVA, Diverticulitis, Homicidal, Suicidal, threat to staff... and all critical care pts) @ -No - Lab Data Result diagrams: 06/23/23 01:16 04/01/24 01:16 Lab Results 06/23/23 06/23/23 06/23/23 Range/Units 01:16 01:16 01:16 WBC 6.5 (3.8-10.6) k/uL RBC 4.56 (3.80-5.40) m/uL Hgb 13.0 (11.4-16.0) gm/dL Hct 38.9 (34.0-46.0) % MCV 85.4 (80.0-100.0) fL MCH 28.6 (25.0-35.0) pg MCHC 33.5 (31.0-37.0) g/dL RDW 12.9 (11.5-15.5) % Plt Count 243 (150-450) k/uL MPV 7.8 Neutrophils % 58 % Lymphocytes % 32 % Monocytes % 5 % Eosinophils % 3 % Basophils % 1 % Neutrophils # 3.7 (1.3-7.7) k/uL Lymphocytes # 2.1 (1.0-4.8) k/uL Monocytes # 0.3 (0-1.0) k/uL Eosinophils # 0.2 (0-0.7) k/uL Basophils # 0.0 (0-0.2) k/uL Sodium 138 (137-145) mmol/L Potassium 3.7 (3.5-5.1) mmol/L Chloride 108 H (98-107) mmol/L Carbon Dioxide 26 (22-30) mmol/L Anion Gap 4 mmol/L BUN 7 (7-17) mg/dL Creatinine 0.48 L (0.52-1.04) mg/dL Est GFR (CKD-EPI)AfAm >90 (>60 ml/min/1.73 sqM) Est GFR (CKD-EPI)NonAf >90 (>60 ml/min/1.73 sqM) Glucose 89 (74-99) mg/dL Calcium 8.9 (8.4-10.2) mg/dL Total Bilirubin 0.4 (0.2-1.3) mg/dL AST 19 (14-36) U/L ALT 15 (4-34) U/L Alkaline Phosphatase 59 (38-126) U/L Total Protein 6.6 (6.3-8.2) g/dL Albumin 3.8 (3.5-5.0) g/dL Amylase 56 (30-110) U/L Lipase 103 (23-300) U/L Influenza Type A (PCR) Not Detected (Not Detectd) Influenza Type B (PCR) Not Detected (Not Detectd) RSV (PCR) Not Detected (Not Detectd) SARS-CoV-2 (PCR) Not Detected (Not Detectd) Disposition Clinical Impression: Abdominal pain Disposition: HOME SELF-CARE Condition: Good Additional Instructions: please return to the Emergency Department if symptoms worsen or any other concerns. Please follow-up with your PCP. Please follow-up with GI as scheduled. Prescriptions: Ketorolac [Toradol] 10 mg PO Q8HR #15 tab Ondansetron Odt [Zofran Odt] 4 mg PO Q8HR PRN #10 tab PRN Reason: Nausea Is patient prescribed a controlled substance at d/c from ED?: No Referrals: Estefania Mcgovern DO [Primary Care Provider] - 1-2 days Time of Disposition: 02:51
[2023-06-23] MEDS: LORazepam 2 MG/ML INJ IV STA (01:41)
[2023-06-23] MEDS: ONDANSETRON 4 MG/2 ML VIAL IVP STA (01:41)
[2023-06-23] MEDS: KETOROLAC 15 MG/ML 1 ML VIAL IVP STA (01:41)
[2023-06-23 01:44] LABS: Basophils % (A) 1 %; Eosinophils # (A) 0.2 k/uL (0-0.7); Eosinophils % (A) 3 %; HCT 38.9 % (34.0-46.0); Lymphocytes # (A) 2.1 k/uL (1.0-4.8); Lymphocytes % (A) 32 %; MCH 28.6 pg (25.0-35.0); MCHC 33.5 g/dL (31.0-37.0); MCV 85.4 fL (80.0-100.0); Mean Platelet Volume 7.8; Monocytes # (A) 0.3 k/uL (0-1.0); Monocytes % (A) 5 %; Neutrophils # (A) 3.7 k/uL (1.3-7.7); Neutrophils % (A) 58 %; Platelet Count 243 k/uL (150-450); RBC 4.56 m/uL (3.80-5.40); RDW 12.9 % (11.5-15.5); WBC 6.5 k/uL (3.8-10.6)
[2023-06-23] MEDS: SODIUM CHLORIDE 0.9% 1,000 ML IV STA (01:44)
[2023-06-23 01:56] LABS: ALT 15 U/L (4-34); AST 19 U/L (14-36); African American GFR (CKD) >90 (>60 ml/min/1.73 sqM); Albumin 3.8 g/dL (3.5-5.0); Alkaline Phosphatase 59 U/L (38-126); Amylase 56 U/L (30-110); Anion Gap 4 mmol/L; Blood Urea Nitrogen 7 mg/dL (7-17); Calcium 8.9 mg/dL (8.4-10.2); Carbon Dioxide 26 mmol/L (22-30); Chloride 108 mmol/L (98-107); Glucose 89 mg/dL (74-99); Lipase 103 U/L (23-300); Non-African American GFR(CKD) >90 (>60 ml/min/1.73 sqM); Potassium 3.7 mmol/L (3.5-5.1); Sodium 138 mmol/L (137-145); Total Bilirubin 0.4 mg/dL (0.2-1.3); Total Protein 6.6 g/dL (6.3-8.2)
--- NOTE | 2023-06-23 02:32 | CT ---
EXAM: CT Abdomen and Pelvis With Intravenous Contrast CLINICAL HISTORY: RLQ pain TECHNIQUE: Axial computed tomography images of the abdomen and pelvis with intravenous contrast. CTDI is 14.8 mGy and DLP is 708.2 mGy-cm. This CT exam was performed using one or more of the following dose reduction techniques: automated exposure control, adjustment of the mA and/or kV according to patient size, and/or use of iterative reconstruction technique. COMPARISON: No relevant prior studies available. FINDINGS: Lung bases: Unremarkable. No mass. No consolidation. ABDOMEN: Liver: Unremarkable. No mass. Gallbladder and bile ducts: Unremarkable. No calcified stones. No ductal dilation. Pancreas: Unremarkable. No mass. No ductal dilation. Spleen: Unremarkable. No splenomegaly. Adrenals: Unremarkable. No mass. Kidneys and ureters: The kidneys demonstrate normal enhancement without pyelonephritis. No obstructive nephrolithiasis or hydronephrosis. No definite ureteral stones. Stomach and bowel: Findings consistent with total colectomy. There is a right lower quadrant ileostomy identified. No evidence for bowel obstruction. No asymmetric bowel mucosal abnormality identified. PELVIS: Appendix: Surgically absent. Bladder: Unremarkable. No mass. Reproductive: Multiple cysts noted in the left adnexa/ovary with the largest cyst superiorly medially measuring 1.8 x 3.5 x 2.4 cm. Overall, the left ovary measures 5.8 x 5.3 x 3.7 cm. The uterus and right adnexa are grossly unremarkable. ABDOMEN and PELVIS: Intraperitoneal space: Unremarkable. No free air. No significant fluid collection. Bones/joints: No acute fracture. No dislocation. Soft tissues: Unremarkable. Vasculature: Unremarkable. No abdominal aortic aneurysm. Lymph nodes: Unremarkable. No enlarged lymph nodes. IMPRESSION: 1. Findings consistent with total colectomy. There is a right lower quadrant ileostomy identified. No evidence for bowel obstruction. No asymmetric bowel mucosal abnormality identified. No free intraperitoneal fluid or pneumoperitoneum. 2. Multiple cysts noted in the left adnexa/ovary with the largest cyst superiorly medially measuring 1.8 x 3.5 x 2.4 cm. Overall, the left ovary measures 5.8 x 5.3 x 3.7 cm. This is a presumed incidental finding given the reported contralateral symptoms. ACR White Paper guidelines (Steve, et. al. JACR 2020;17(2):248-254) suggest no follow-up is necessary.
[2023-06-23 03:31] LABS: Appearance,Urine Cloudy (Clear); Bacteria,Urine Rare /hpf; Bilirubin,Urine Negative (Negative); Blood,Urine Negative (Negative); Color,Urine Colorless; Glucose,Urine (UA) Negative (Negative); Ketones,Urine Negative (Negative); Leukocyte Esterase,Urine Negative (Negative); Mucus,Urine Few /hpf; Nitrite,Urine Negative (Negative); Protein,Urine Negative (Negative); RBC,Urine 1 /hpf (0-5); Specific Gravity,Urine 1.028 (1.001-1.035); Squamous Epithelial Cell,Urine 17 /hpf (0-4); Urobilinogen,Urine <2.0 mg/dL (<2.0); WBC,Urine 1 /hpf (0-5)
[2023-06-23 03:50] VITALS: BP 128/90; PULSE 69
== END 2023-06-23 03:16 | disposition home or self-care (01) ==
LOC: EC 23:17
DX: N83.202 Unspecified ovarian cyst, left side (principal); N83.201 Unspecified ovarian cyst, right side; F17.290 Nicotine dependence, other tobacco product, uncomplicated; F12.90 Cannabis use, unspecified, uncomplicated; Z88.5 Allergy status to narcotic agent; Z88.2 Allergy status to sulfonamides; Z88.8 Allergy status to other drugs, medicaments and biological substances
CPT/HCPCS: 36415; 80053; 82150; 83690; 85025; 81001; 81025; 87636; 74177; 99284; 96374; 96375 ×2; 96361; J2060; J2405; J1885; Q9967

== ENCOUNTER 2023-07-17 19:58 | Emergency (ER) | payer OTHER ==
--- NOTE | 2023-07-17 21:02 | ED ---
Nausea/Vomiting/Diarrhea HPI - General Source: patient Mode of arrival: ambulatory Limitations: no limitations <Suzanne Bustos - Last Filed: 07/19/23 03:32> <Ry Hill - Last Filed: 08/04/23 06:39> - General Chief complaint: Nausea/Vomiting/Diarrhea Stated complaint: Vomiting, PILI, liquid in colostomy bag Time Seen by Provider: 07/17/23 20:20 - History of Present Illness Initial comments: 37-year-old female with history of Crohn's disease requiring ostomy presenting with chief complaint of nausea vomiting and diarrhea. Symptoms have been ongoing for the last 3 to 4 days. She has been having liquid stool in her ostomy bag. She states that she was profusely vomiting and now has nothing that she has been able to keep down. He admits to diffuse abdominal pain. She admits to anxiety. She states that when she tries to stand up her heart starts racing and she feels quite anxious and has some difficulty breathing. No hematochezia, melena, hematic emesis. (Suzanne Bustos) - Related Data Home Medications Medication Instructions Recorded Confirmed Famotidine [Pepcid] 20 mg PO HS 02/24/20 06/13/21 Omeprazole [PriLOSEC] 40 mg PO DAILY 06/13/21 06/13/21 Previous Rx's Medication Instructions Recorded predniSONE 10 mg PO DAILY #74 tab 06/14/21 HYDROcodone/APAP 5-325MG [Finley 1 tab PO Q4HR PRN 3 Days #18 tab 06/15/21 5-325] HYDROcodone/APAP 7.5-325MG [Finley 1 tab PO Q4HR PRN 3 Days #18 tab 03/22/23 7.5-325] Ondansetron Odt [Zofran Odt] 4 mg PO Q8HR PRN #30 tab 03/22/23 predniSONE [Deltasone] 20 mg PO BID #10 tab 03/22/23 HYDROcodone/APAP 7.5-325MG [Finley 1 tab PO Q4H PRN 3 Days #18 tab 05/22/23 7.5-325] Ondansetron Odt [Zofran Odt] 4 mg PO Q8HR PRN #30 tab 05/22/23 Ketorolac [Toradol] 10 mg PO Q8HR #15 tab 06/23/23 Ondansetron Odt [Zofran Odt] 4 mg PO Q8HR PRN #10 tab 06/23/23 Allergies Allergy/AdvReac Type Severity Reaction Status Date / Time adalimumab [From Humira] Allergy Rash/Hives Verified 07/17/23 20:12 azathioprine [From Imuran] Allergy Swelling Verified 07/17/23 20:12 caffeine Allergy Unknown Verified 07/17/23 20:12 [From Excedrin Migraine] hypochlorous acid Allergy Swelling Verified 07/17/23 20:12 [From Levicyn Antipruritic] morphine Allergy Rash/Hives Verified 07/17/23 20:12 prochlorperazine Allergy Confusion Verified 07/17/23 20:12 [From Compazine] sodium chloride Allergy Swelling Verified 07/17/23 20:12 [From Levicyn Antipruritic] sodium hypochlorite solution Allergy Swelling Verified 07/17/23 20:12 [From Levicyn Antipruritic] sodium magnesium Allergy Swelling Verified 07/17/23 20:12 fluorosilicate [From Levicyn Antipruritic] sodium phosphate Allergy Swelling Verified 07/17/23 20:12 [From Levicyn Antipruritic] Review of Systems ROS Other: All systems not noted in ROS Statement are negative. <Suzanne Bustos - Last Filed: 07/19/23 03:32> ROS Other: All systems not noted in ROS Statement are negative. <Ry Hill - Last Filed: 08/04/23 06:39> ROS Statement: Those systems with pertinent positive or pertinent negative responses have been documented in the HPI. Past Medical History Past Medical History: Asthma, Fibromyalgia Additional Past Medical History / Comment(s): ulcerative colitis; endometriosis; arthritis; Ovarian cyst, Chrons History of Any Multi-Drug Resistant Organisms: C-DIFF Date of last positivie culture/infection: March 2019 MDRO Source:: stool Past Surgical History: Adenoidectomy, Bowel Resection, Ear Surgery, Tonsillectomy, Tubal Ligation, Uterine Ablation Additional Past Surgical History / Comment(s): colon resection; Past Anesthesia/Blood Transfusion Reactions: No Reported Reaction Past Psychological History: ADD/ADHD, Anxiety, Depression Smoking Status: Current every day smoker, Vaper Past Alcohol Use History: Occasional, Rare Past Drug Use History: Marijuana <Suzanne Bustos - Last Filed: 07/19/23 03:32> General Exam Limitations: no limitations General appearance: alert, anxious Head exam: Present: atraumatic, normocephalic Eye exam: Present: normal appearance, EOMI Neck exam: Present: normal inspection. Absent: meningismus Respiratory exam: Present: normal lung sounds bilaterally. Absent: respiratory distress, wheezes, rales, rhonchi, stridor Cardiovascular Exam: Present: normal rhythm, tachycardia, normal heart sounds. Absent: systolic murmur, diastolic murmur, rubs, gallop, clicks GI/Abdominal exam: Present: soft, tenderness. Absent: distended, guarding, rebound, rigid Neurological exam: Present: alert, oriented X3 Skin exam: Present: warm, dry <Suzanne Bustos - Last Filed: 07/19/23 03:32> Course Vital Signs 07/17/23 07/17/23 07/17/23 20:09 22:02 23:15 Temperature 97.4 F L Pulse Rate 166 H 132 H 90 Pulse Rate [ Sitting Pulse Oximetery] Pulse Rate [ Standing Pulse Oximetery] Pulse Rate [ Supine Pulse Oximetery] Respiratory 20 16 16 Rate Blood Pressure 88/72 109/66 120/84 Blood Pressure [Left Arm Sitting] Blood Pressure [Left Arm Standing] Blood Pressure [Left Arm Supine] O2 Sat by Pulse 96 97 98 Oximetry 07/18/23 07/18/23 07/18/23 03:34 04:06 04:08 Temperature 97.9 F Pulse Rate 108 H Pulse Rate [ 129 H Sitting Pulse Oximetery] Pulse Rate [ Standing Pulse Oximetery] Pulse Rate [ 98 Supine Pulse Oximetery] Respiratory 18 20 22 Rate Blood Pressure 101/69 Blood Pressure 111/64 [Left Arm Sitting] Blood Pressure [Left Arm Standing] Blood Pressure 116/84 [Left Arm Supine] O2 Sat by Pulse 97 100 100 Oximetry 07/18/23 07/18/23 04:10 06:28 Temperature Pulse Rate 85 Pulse Rate [ Sitting Pulse Oximetery] Pulse Rate [ 150 H Standing Pulse Oximetery] Pulse Rate [ Supine Pulse Oximetery] Respiratory 24 18 Rate Blood Pressure 103/67 Blood Pressure [Left Arm Sitting] Blood Pressure 117/82 [Left Arm Standing] Blood Pressure [Left Arm Supine] O2 Sat by Pulse 99 100 Oximetry Medical Decision Making - Lab Data Result diagrams: 07/17/23 21:16 07/17/23 21:16 <Suzanne Bustos - Last Filed: 07/19/23 03:32> - Lab Data Result diagrams: 07/17/23 21:16 07/17/23 21:16 <Ry Hill - Last Filed: 08/04/23 06:39> - Medical Decision Making EKG shows sinus tachycardia with short WA interval. Ventricular rate 123. WA interval 104. QRS 77. QT 331. QTc 404. Was pt. sent in by a medical professional or institution (, PA, YACHT RIGGER, urgent care, hospital, or jail...) When possible be specific @ -[No] Did you speak to anyone other than the patient for history (EMS, parent, family, police, friend...)? What history was obtained from this source @ -[No] Did you review nursing and triage notes (agree or disagree)? Why? @ -[I reviewed and agree with nursing and triage notes] Were old charts reviewed (outside hosp., previous admission, EMS record, old EKG, old radiological studies, urgent care reports/EKG's, jail records)? Report findings @ -[No old charts were reviewed] Differential Diagnosis (chest pain, altered mental status, abdominal pain women, abdominal pain men, vaginal bleeding, weakness, fever, dyspnea, syncope, headache, dizziness, GI bleed, back pain, seizure, CVA, palpatations, mental health, musculoskeletal)? @ -MDM Differential Abdominal Pain Women: Appendicitis, Cholecystitis, diverticulosis, ischemic bowel, pancreatitis, hepatitis, UTI, gastroenteritis, AAA, incarcerated hernia, bowel obstruction, constipation, inflammatory bowel, hepatitis, peptic ulcer disease, splenic infarction, perforated viscus, vulvitis, ovarian torsion, PID, kidney stone, placenta abruption... This is not meant to be an all-inclusive list EKG interpreted by me (3pts min.). @ -[As above] X-rays interpreted by me (1pt min.). @ -[None done] CT interpreted by me (1pt min.). @ -CT shows left ovarian cyst or cluster of cysts measuring 4.5 x 3.1 x 2.3 cm. Previous total colectomy with right sided ileostomy. No evidence of bowel obstruction. No bowel wall thickening. U/S interpreted by me (1pt. min.). @ -[None done] What testing was considered but not performed or refused? (CT, X-rays, U/S, labs)? Why? @ -[None] What meds were considered but not given or refused? Why? @ -[None] Did you discuss the management of the patient with other professionals (professionals i.e. DrNavarro, PA, YACHT RIGGER, lab, RT, psych nurse, social contact worker, measurement psychologist, teacher, police booking officer, family caseworker)? Give summary @ -[No] Was smoking cessation discussed for >3mins.? @ -[No] Was critical care preformed (if so, how long)? @ -[No] Were there social determinants of health that impacted care today? How? (Homelessness, low income, unemployed, alcoholism, drug addiction, transportation, low edu. Level, literacy, decrease access to med. care, [facility] [facility], rehab)? @ -[No] Was there de-escalation of care discussed even if they declined (Discuss DNR or withdrawal of care, Hospice)? DNR status @ -[No] What co-morbidities impacted this encounter? (DM, HTN, Smoking, COPD, CAD, Cancer, CVA, ARF, Chemo, Hep., AIDS, mental health diagnosis, sleep apnea, morbid obesity)? @ -[None] Was patient admitted / discharged? Hospital course, mention meds given and route, prescriptions, significant lab abnormalities, going to OR and other pertinent info. @ -37-year-old female presenting with chief complaint of nausea vomiting and diarrhea. History of Crohn's disease with colostomy in place. History and physical exam are conducted. The patient is admittedly quite anxious, she is given IV fluids, antiemetics, and Ativan. No leukocytosis. Signs of dehydration, BUN 22 creatinine 1.18. Patient is receiving IV fluids. Urine shows no infectious process or bleeding. Negative C. difficile. Negative for influenza, RSV, COVID. CT shows ovarian cysts, no other acute process. On reassessment the patient is tolerating oral intake. She reports continued anxiety. Upon standing her heart rate does reach into the 150s. She is started on another fluid bolus and is signed out to my attending Dr. Hill for further management and disposition (Suzanne Bustos) Was patient admitted / discharged? Hospital course, mention meds given and route, prescriptions, significant lab abnormalities, going to OR and other pertinent info. @ -Patient is reevaluated after treatment and is feeling somewhat better. Sixto tiff is tolerating oral intake. We discussed appropriate further care and follow-up as well as return parameters. Undiagnosed new problem with uncertain prognosis? @ -[No] Drug Therapy requiring intensive monitoring for toxicity (Heparin, Nitro, Insulin, Cardizem)? @ -[No] Were any procedures done? @ -[No] Diagnosis/symptom? @ -[Acute nausea and vomiting Acute dehydration Acute, or Chronic, or Acute on Chronic? @ -[Acute Uncomplicated (without systemic symptoms) or Complicated (systemic symptoms)? @ -[Uncomplicated Side effects of treatment? @ -[No] Exacerbation, Progression, or Severe Exacerbation? @ -[No] Poses a threat to life or bodily function? How? (Chest pain, USA, VT, pneumonia, PE, COPD, DKA, ARF, appy, cholecystitis, CVA, Diverticulitis, Homicidal, Suicidal, threat to staff... and all critical care pts) @ -[No] (Ry Hill) - Lab Data Lab Results 07/17/23 07/17/23 07/17/23 Range/Units 20:43 21:16 21:16 WBC 9.6 (3.8-10.6) k/uL RBC 6.53 H (3.80-5.40) m/uL Hgb 17.9 H D (11.4-16.0) gm/dL Hct 54.6 H (34.0-46.0) % MCV 83.5 (80.0-100.0) fL MCH 27.4 (25.0-35.0) pg MCHC 32.8 (31.0-37.0) g/dL RDW 12.7 (11.5-15.5) % Plt Count 415 (150-450) k/uL MPV 7.8 Neutrophils % 59 % Lymphocytes % 29 % Monocytes % 7 % Eosinophils % 2 % Basophils % 1 % Neutrophils # 5.7 (1.3-7.7) k/uL Lymphocytes # 2.8 (1.0-4.8) k/uL Monocytes # 0.6 (0-1.0) k/uL Eosinophils # 0.1 (0-0.7) k/uL Basophils # 0.1 (0-0.2) k/uL Sodium 135 L (137-145) mmol/L Potassium 4.3 (3.5-5.1) mmol/L Chloride 106 (98-107) mmol/L Carbon Dioxide 13 L (22-30) mmol/L Anion Gap 16 mmol/L BUN 22 H (7-17) mg/dL Creatinine 1.18 H (0.52-1.04) mg/dL Est GFR (CKD-EPI)AfAm 69 (>60 ml/min/1.73 sqM) Est GFR (CKD-EPI)NonAf 60 (>60 ml/min/1.73 sqM) Glucose 83 (74-99) mg/dL Calcium 10.1 (8.4-10.2) mg/dL Total Bilirubin 1.0 (0.2-1.3) mg/dL AST 30 (14-36) U/L ALT 33 (4-34) U/L Alkaline Phosphatase 76 (38-126) U/L Total Protein 8.9 H (6.3-8.2) g/dL Albumin 5.1 H (3.5-5.0) g/dL Amylase 44 (30-110) U/L Lipase 63 (23-300) U/L Urine Color Urine Appearance (Clear) Urine pH (5.0-8.0) Ur Specific [place] (1.001-1.035) Urine Protein (Negative) Urine Glucose (UA) (Negative) Urine Ketones (Negative) Urine Blood (Negative) Urine Nitrite (Negative) Urine Bilirubin (Negative) Urine Urobilinogen (<2.0) mg/dL Ur Leukocyte Esterase (Negative) Urine RBC (0-5) /hpf Urine WBC (0-5) /hpf Ur Squamous Epith Cells (0-4) /hpf Ur Transition Epith Cell (0-1) /hpf Urine Bacteria (None) /hpf Hyaline Casts (0-2) /lpf Urine Mucus (None) /hpf C. difficile (EIA) Intrp Negative (Negative) Influenza Type A (PCR) (Not Detectd) Influenza Type B (PCR) (Not Detectd) RSV (PCR) (Not Detectd) SARS-CoV-2 (PCR) (Not Detectd) 07/17/23 07/17/23 Range/Units 22:05 22:05 WBC (3.8-10.6) k/uL RBC (3.80-5.40) m/uL Hgb (11.4-16.0) gm/dL Hct (34.0-46.0) % MCV (80.0-100.0) fL MCH (25.0-35.0) pg MCHC (31.0-37.0) g/dL RDW (11.5-15.5) % Plt Count (150-450) k/uL MPV Neutrophils % % Lymphocytes % % Monocytes % % Eosinophils % % Basophils % % Neutrophils # (1.3-7.7) k/uL Lymphocytes # (1.0-4.8) k/uL Monocytes # (0-1.0) k/uL Eosinophils # (0-0.7) k/uL Basophils # (0-0.2) k/uL Sodium (137-145) mmol/L Potassium (3.5-5.1) mmol/L Chloride (98-107) mmol/L Carbon Dioxide (22-30) mmol/L Anion Gap mmol/L BUN (7-17) mg/dL Creatinine (0.52-1.04) mg/dL Est GFR (CKD-EPI)AfAm (>60 ml/min/1.73 sqM) Est GFR (CKD-EPI)NonAf (>60 ml/min/1.73 sqM) Glucose (74-99) mg/dL Calcium (8.4-10.2) mg/dL Total Bilirubin (0.2-1.3) mg/dL AST (14-36) U/L ALT (4-34) U/L Alkaline Phosphatase (38-126) U/L Total Protein (6.3-8.2) g/dL Albumin (3.5-5.0) g/dL Amylase (30-110) U/L Lipase (23-300) U/L Urine Color Yellow Urine Appearance Cloudy H (Clear) Urine pH 6.0 (5.0-8.0) Ur Specific [place] 1.028 (1.001-1.035) Urine Protein 1+ H (Negative) Urine Glucose (UA) Negative (Negative) Urine Ketones Negative (Negative) Urine Blood Negative (Negative) Urine Nitrite Negative (Negative) Urine Bilirubin Negative (Negative) Urine Urobilinogen <2.0 (<2.0) mg/dL Ur Leukocyte Esterase Trace H (Negative) Urine RBC 1 (0-5) /hpf Urine WBC 1 (0-5) /hpf Ur Squamous Epith Cells 18 H (0-4) /hpf Ur Transition Epith Cell <1 (0-1) /hpf Urine Bacteria Rare H (None) /hpf Hyaline Casts 28 H (0-2) /lpf Urine Mucus Many H (None) /hpf C. difficile (EIA) Intrp (Negative) Influenza Type A (PCR) Not Detected (Not Detectd) Influenza Type B (PCR) Not Detected (Not Detectd) RSV (PCR) Not Detected (Not Detectd) SARS-CoV-2 (PCR) Not Detected (Not Detectd) Disposition Is patient prescribed a controlled substance at d/c from ED?: No <Suzanne Bustos - Last Filed: 07/19/23 03:32> <Ry Hlil - Last Filed: 08/04/23 06:39> Clinical Impression: Nausea & vomiting, Dehydration Disposition: HOME SELF-CARE Condition: Fair Instructions (If sedation given, give patient instructions): Acute Nausea and Vomiting (ED), Acute Diarrhea (ED) Additional Instructions: Follow-up with PCP and leading firefighter. Report back to ER with any new or worsening symptoms. Referrals: Estefania Mcgovern DO [Primary Care Provider] - 1-2 days
[2023-07-17] MEDS: SODIUM CHLORIDE 0.9% 2,000 ML IV STA (21:25)
[2023-07-17] MEDS: METOCLOPRAMIDE 5 MG/ML 2 ML VIAL IVP STA (21:25)
[2023-07-17 21:33] LABS: ALT 33 U/L (4-34); AST 30 U/L (14-36); African American GFR (CKD) 69 (>60 ml/min/1.73 sqM); Albumin 5.1 g/dL (3.5-5.0); Alkaline Phosphatase 76 U/L (38-126); Amylase 44 U/L (30-110); Anion Gap 16 mmol/L; Blood Urea Nitrogen 22 mg/dL (7-17); Calcium 10.1 mg/dL (8.4-10.2); Carbon Dioxide 13 mmol/L (22-30); Chloride 106 mmol/L (98-107); Glucose 83 mg/dL (74-99); Lipase 63 U/L (23-300); Non-African American GFR(CKD) 60 (>60 ml/min/1.73 sqM); Potassium 4.3 mmol/L (3.5-5.1); Sodium 135 mmol/L (137-145); Total Protein 8.9 g/dL (6.3-8.2)
[2023-07-17 21:39] LABS: Basophils # (A) 0.1 k/uL (0-0.2); Basophils % (A) 1 %; Eosinophils # (A) 0.1 k/uL (0-0.7); Eosinophils % (A) 2 %; Lymphocytes # (A) 2.8 k/uL (1.0-4.8); Lymphocytes % (A) 29 %; MCH 27.4 pg (25.0-35.0); MCHC 32.8 g/dL (31.0-37.0); MCV 83.5 fL (80.0-100.0); Mean Platelet Volume 7.8; Monocytes # (A) 0.6 k/uL (0-1.0); Monocytes % (A) 7 %; Neutrophils # (A) 5.7 k/uL (1.3-7.7); Neutrophils % (A) 59 %; Platelet Count 415 k/uL (150-450); RBC 6.53 m/uL (3.80-5.40); RDW 12.7 % (11.5-15.5); WBC 9.6 k/uL (3.8-10.6)
[2023-07-17 21:45] LABS: HGB 17.9 gm/dL (11.4-16.0)
[2023-07-17 21:46] LABS: HCT 54.6 % (34.0-46.0)
[2023-07-17] MEDS: LORazepam 2 MG/ML INJ IV STA (21:58)
[2023-07-17 22:25] LABS: Appearance,Urine Cloudy (Clear); Bacteria,Urine Rare /hpf; Bilirubin,Urine Negative (Negative); Blood,Urine Negative (Negative); Color,Urine Yellow; Glucose,Urine (UA) Negative (Negative); Hyaline Casts,Urine 28 /lpf (0-2); Ketones,Urine Negative (Negative); Leukocyte Esterase,Urine Trace (Negative); Mucus,Urine Many /hpf; Nitrite,Urine Negative (Negative); Protein,Urine 1+ (Negative); RBC,Urine 1 /hpf (0-5); Specific Gravity,Urine 1.028 (1.001-1.035); Squamous Epithelial Cell,Urine 18 /hpf (0-4); Transitional Epi Cells,Urine <1 /hpf (0-1); Urobilinogen,Urine <2.0 mg/dL (<2.0); WBC,Urine 1 /hpf (0-5)
--- NOTE | 2023-07-18 01:26 | CT ---
EXAM: CT Abdomen and Pelvis With Intravenous Contrast CLINICAL HISTORY: abdominal pain, liquid stool, hx chrons TECHNIQUE: Axial computed tomography images of the abdomen and pelvis with intravenous contrast. CTDI is 13.7 mGy and DLP is 641.4 mGy-cm. This CT exam was performed using one or more of the following dose reduction techniques: automated exposure control, adjustment of the mA and/or kV according to patient size, and/or use of iterative reconstruction technique. COMPARISON: No relevant prior studies available. FINDINGS: ABDOMEN: Liver: Unremarkable. No mass. Gallbladder and bile ducts: Unremarkable. No calcified stones. No ductal dilation. Pancreas: Unremarkable. No mass. No ductal dilation. Spleen: Unremarkable. No splenomegaly. Adrenals: Unremarkable. No mass. Kidneys and ureters: Unremarkable. No solid mass. No hydronephrosis. Stomach and bowel: Previous total colectomy. Right-sided ileostomy. No evidence of bowel obstruction. No bowel wall thickening. PELVIS: Appendix: See above. Bladder: Unremarkable. No mass. Reproductive: Left ovarian cyst or cluster of cysts measuring 4.5 x 3. 1 x 2.3 cm. This is decreased from the prior study. ABDOMEN and PELVIS: Intraperitoneal space: Unremarkable. No free air. No significant fluid collection. Bones/joints: No acute findings. Soft tissues: Unremarkable. Vasculature: Unremarkable. No abdominal aortic aneurysm. Lymph nodes: Unremarkable. No enlarged lymph nodes. IMPRESSION: Left ovarian cyst or cluster of cysts measuring 4.5 x 3.1 x 2.3 cm. Previous total colectomy with right-sided ileostomy. No evidence of bowel obstruction. No bowel wall thickening.
[2023-07-18 04:29] VITALS: TEMP 97.9
[2023-07-18 06:38] VITALS: BP 103/67; PULSE 85; RESP 18
[2023-07-18] MEDS: LORazepam 2 MG/ML INJ IV STA (07:14)
== END 2023-07-18 19:13 | disposition home or self-care (01) ==
LOC: EC 19:58
DX: R11.2 Nausea with vomiting, unspecified (principal); E86.0 Dehydration; F17.200 Nicotine dependence, unspecified, uncomplicated; Z88.8 Allergy status to other drugs, medicaments and biological substances
CPT/HCPCS: 36415; 93005; 80053; 82150; 83690; 85025; 81001; 87324; 87636; 74177; 99284; 96374; 96375; 96376; 96361; J2060 ×2; J2765; Q9967

== ENCOUNTER 2024-01-13 01:29 | Emergency (ER) | payer MEDICARE, OTHER ==
[2024-01-13 01:34] VITALS: TEMP 97.9
[2024-01-13] MEDS: HYDROmorphone 0.5 MG/0.5 ML SYRINGE IVP STA ×2 (02:26→06:57)
[2024-01-13] MEDS: SODIUM CHLORIDE 0.9% 1,000 ML IV STA (02:26)
--- NOTE | 2024-01-13 02:28 | ED ---
Abdominal Pain HPI - General Source: patient, RN notes reviewed Mode of arrival: wheelchair Limitations: no limitations <Clive Arreola - Last Filed: 01/13/24 21:00> <Ry Hill - Last Filed: 01/15/24 03:30> - General Chief Complaint: Abdominal Pain Stated Complaint: Abd Pain Time Seen by Provider: 01/13/24 01:43 - History of Present Illness Initial Comments: 38-year-old female presents emergency department chief complaint of abdominal pain. Patient states that she has a colostomy from Crohn's disease states that she had some complications but she has had 2 surgeries already at [facility] and states that she is scheduled for hernia repair around her stoma in February. Patient states of recent she has had increasing pain, distention and states that there is more gas output in her colostomy than usual but states there is some stool and it alternates between diarrhea and semiformed stool. Patient denies any fevers or chills no chest pain no dysuria noted (Clive Arreola) - Related Data Home Medications Medication Instructions Recorded Confirmed Famotidine [Pepcid] 20 mg PO HS 02/24/20 06/13/21 Omeprazole [PriLOSEC] 40 mg PO DAILY 06/13/21 06/13/21 Previous Rx's Medication Instructions Recorded predniSONE 10 mg PO DAILY #74 tab 06/14/21 HYDROcodone/APAP 5-325MG [Rule 1 tab PO Q4HR PRN 3 Days #18 tab 06/15/21 5-325] HYDROcodone/APAP 7.5-325MG [Rule 1 tab PO Q4HR PRN 3 Days #18 tab 03/22/23 7.5-325] Ondansetron Odt [Zofran Odt] 4 mg PO Q8HR PRN #30 tab 03/22/23 predniSONE [Deltasone] 20 mg PO BID #10 tab 03/22/23 HYDROcodone/APAP 7.5-325MG [Rule 1 tab PO Q4H PRN 3 Days #18 tab 05/22/23 7.5-325] Ondansetron Odt [Zofran Odt] 4 mg PO Q8HR PRN #30 tab 05/22/23 Ketorolac [Toradol] 10 mg PO Q8HR #15 tab 06/23/23 Ondansetron Odt [Zofran Odt] 4 mg PO Q8HR PRN #10 tab 06/23/23 Allergies Allergy/AdvReac Type Severity Reaction Status Date / Time adalimumab [From Humira] Allergy Rash/Hives Verified 01/13/24 01:34 azathioprine [From Imuran] Allergy Swelling Verified 01/13/24 01:34 caffeine Allergy Unknown Verified 01/13/24 01:34 [From Excedrin Migraine] hypochlorous acid Allergy Swelling Verified 01/13/24 01:34 [From Levicyn Antipruritic] morphine Allergy Rash/Hives Verified 01/13/24 01:34 prochlorperazine Allergy Confusion Verified 01/13/24 01:34 [From Compazine] sodium chloride Allergy Swelling Verified 01/13/24 01:34 [From Levicyn Antipruritic] sodium hypochlorite solution Allergy Swelling Verified 01/13/24 01:34 [From Levicyn Antipruritic] sodium magnesium Allergy Swelling Verified 01/13/24 01:34 fluorosilicate [From Levicyn Antipruritic] sodium phosphate Allergy Swelling Verified 01/13/24 01:34 [From Levicyn Antipruritic] Review of Systems ROS Other: All systems not noted in ROS Statement are negative. <Clive Arreola - Last Filed: 01/13/24 21:00> ROS Other: All systems not noted in ROS Statement are negative. <Ry Hill - Last Filed: 01/15/24 03:30> ROS Statement: Those systems with pertinent positive or pertinent negative responses have been documented in the HPI. Past Medical History Past Medical History: Asthma, Fibromyalgia Additional Past Medical History / Comment(s): ulcerative colitis; endometriosis; arthritis; Ovarian cyst, Chrons History of Any Multi-Drug Resistant Organisms: C-DIFF Date of last positivie culture/infection: March 2019 MDRO Source:: stool Past Surgical History: Adenoidectomy, Bowel Resection, Ear Surgery, To nsillectomy, Tubal Ligation, Uterine Ablation Additional Past Surgical History / Comment(s): colon resection; Past Anesthesia/Blood Transfusion Reactions: No Reported Reaction Past Psychological History: ADD/ADHD, Anxiety, Depression Smoking Status: Current every day smoker, Vaper Past Alcohol Use History: Occasional, Rare Past Drug Use History: Marijuana <Clive Arreola - Last Filed: 01/13/24 21:00> General Exam Limitations: no limitations General appearance: alert, in no apparent distress Head exam: Present: atraumatic, normocephalic, normal inspection Neck exam: Present: normal inspection, full ROM. Absent: tenderness, meningismus, lymphadenopathy Respiratory exam: Present: normal lung sounds bilaterally. Absent: respiratory distress, wheezes, rales, rhonchi, stridor Cardiovascular Exam: Present: regular rate, normal rhythm, normal heart sounds. Absent: systolic murmur, diastolic murmur, rubs, gallop, clicks GI/Abdominal exam: Present: soft, tenderness, normal bowel sounds, other (Colostomy noted). Absent: distended, guarding, rebound, rigid Back exam: Absent: CVA tenderness (R), CVA tenderness (L) <Clive Arreola - Last Filed: 01/13/24 21:00> Course Vital Signs 01/13/24 01/13/24 01:30 07:12 Temperature 97.9 F Pulse Rate 89 73 Respiratory 20 18 Rate Blood Pressure 140/99 104/69 O2 Sat by Pulse 98 95 Oximetry Medical Decision Making - Lab Data Result diagrams: 01/13/24 02:30 01/13/24 02:30 <Clive Arreola - Last Filed: 01/13/24 21:00> - Lab Data Result diagrams: 01/13/24 02:30 01/13/24 02:30 <Ry Hill - Last Filed: 01/15/24 03:30> - Medical Decision Making Was pt. sent in by a medical professional or institution (, PA, DISBURSING OFFICER, urgent care, hospital, or retirement...) When possible be specific @ -No Did you speak to anyone other than the patient for history (EMS, parent, family, police, friend...)? What history was obtained from this source @ -No Did you review nursing and triage notes (agree or disagree)? Why? @ -I reviewed and agree with nursing and triage notes Were old charts reviewed (outside hosp., previous admission, EMS record, old EKG, old radiological studies, urgent care reports/EKG's, retirement records)? Report findings @ -No old charts were reviewed Differential Diagnosis (chest pain, altered mental status, abdominal pain women, abdominal pain men, vaginal bleeding, weakness, fever, dyspnea, syncope, headache, dizziness, GI bleed, back pain, seizure, CVA, palpatations, mental health, musculoskeletal)? @ -Differential Abdominal Pain Women: Appendicitis, Cholecystitis, diverticulosis, ischemic bowel, pancreatitis, hepatitis, UTI, gastroenteritis, AAA, incarcerated hernia, bowel obstruction, constipation, inflammatory bowel, hepatitis, peptic ulcer disease, splenic infarction, perforated viscus, vulvitis, ovarian torsion, PID, kidney stone, placenta abruption, this is not meant to be an all-inclusive list EKG interpreted by me (3pts min.). @ -None X-rays interpreted by me (1pt min.). @ -None done CT interpreted by me (1pt min.). @ -CT abdomen pelvis showing parastomal hernia with loops of bowel without obstruction U/S interpreted by me (1pt. min.). @ -None done What testing was considered but not performed or refused? (CT, X-rays, U/S, labs)? Why? @ -None What meds were considered but not given or refused? Why? @ -None Did you discuss the management of the patient with other professionals (professionals i.e. , PA, DISBURSING OFFICER, lab, RT, psych nurse, social work lecturer, guest services ambassador, teacher, tactical intelligence officer, porter sample case)? Give summary @ -No Was smoking cessation discussed for >3mins.? @ -No Was critical care preformed (if so, how long)? @ -No Were there social determinants of health that impacted care today? How? (Homelessness, low income, unemployed, alcoholism, drug addiction, transportation, low edu. Level, literacy, decrease access to med. care, shelter, rehab)? @ -No Was there de-escalation of care discussed even if they declined (Discuss DNR or withdrawal of care, Hospice)? DNR status @ -No What co-morbidities impacted this encounter? (DM, HTN, Smoking, COPD, CAD, Cancer, CVA, ARF, Chemo, Hep., AIDS, mental health diagnosis, sleep apnea, morbid obesity)? @ -None Was patient admitted / discharged? Hospital course, mention meds given and route, prescriptions, significant lab abnormalities, going to OR and other pertinent info. @ -Patient was discharged I did send out the case to Dr. Hill pending CT results. This was follow-up upon showing no evidence of obstruction or strangulation. Patient discharged to follow-up with surgeon. Undiagnosed new problem with uncertain prognosis? @ -No Drug Therapy requiring intensive monitoring for toxicity (Heparin, Nitro, Insulin, Cardizem)? @ -No Were any procedures done? @ -No Diagnosis/symptom? @ -Abdominal pain Acute, or Chronic, or Acute on Chronic? @ -Acute Uncomplicated (without systemic symptoms) or Complicated (systemic symptoms)? @ -Complicated Side effects of treatment? @ -No Exacerbation, Progression, or Severe Exacerbation? @ -No Poses a threat to life or bodily function? How? (Chest pain, [place], [place], pneumonia, PE, COPD, DKA, ARF, appy, cholecystitis, CVA, Diverticulitis, Homicidal, Suicidal, threat to staff... and all critical care pts) @ -No (Clive Arreola) I reevaluated the patient following the CT scan. She is feeling better and would like to go home. The abdominal exam at this point without evidence of peritonitis. I discussed the CT findings. The patient will have close follow- up. We discussed return parameters and the appropriate further care. (Ry Hill) - Lab Data Lab Results 01/13/24 01/13/24 01/13/24 Range/Units 02:30 02:30 02:30 WBC 6.8 (3.8-10.6) k/uL RBC 4.42 (3.80-5.40) m/uL Hgb 12.7 (11.4-16.0) gm/dL Hct 39.2 (34.0-46.0) % MCV 88.8 (80.0-100.0) fL MCH 28.8 (25.0-35.0) pg MCHC 32.4 (31.0-37.0) g/dL RDW 12.6 (11.5-15.5) % Plt Count 227 (150-450) k/uL MPV 7.3 Neutrophils % 58 % Lymphocytes % 30 % Monocytes % 6 % Eosinophils % 3 % Basophils % 1 % Neutrophils # 3.9 (1.3-7.7) k/uL Lymphocytes # 2.0 (1.0-4.8) k/uL Monocytes # 0.4 (0-1.0) k/uL Eosinophils # 0.2 (0-0.7) k/uL Basophils # 0.1 (0-0.2) k/uL Sodium 138 (137-145) mmol/L Potassium 3.7 (3.5-5.1) mmol/L Chloride 109 H (98-107) mmol/L Carbon Dioxide 24 (22-30) mmol/L Anion Gap 5 mmol/L BUN 9 (7-17) mg/dL Creatinine 0.71 (0.52-1.04) mg/dL Est GFR (CKD-EPI)AfAm >90 (>60 ml/min/1.73 sqM) Est GFR (CKD-EPI)NonAf >90 (>60 ml/min/1.73 sqM) Glucose 82 (74-99) mg/dL Plasma Lactic Acid [place] 1.1 (0.7-2.0) mmol/L Calcium 8.8 (8.4-10.2) mg/dL Total Bilirubin 0.3 (0.2-1.3) mg/dL AST 19 (14-36) U/L ALT 13 (4-34) U/L Alkaline Phosphatase 68 (38-126) U/L Total Protein 6.2 L (6.3-8.2) g/dL Albumin 3.7 (3.5-5.0) g/dL Lipase 140 (23-300) U/L Disposition Is patient prescribed a controlled substance at d/c from ED?: No <Clive Arreola - Last Filed: 01/13/24 21:00> <Ry Hill - Last Filed: 01/15/24 03:30> Clinical Impression: Abdominal pain, Hernia Disposition: HOME SELF-CARE Condition: Stable Instructions (If sedation given, give patient instructions): Abdominal Pain (ED) Referrals: Estefania Mcgovern DO [Primary Care Provider] - 1-2 days
[2024-01-13] MEDS: ONDANSETRON 4 MG/2 ML VIAL IVP STA ×2 (02:32→07:11)
[2024-01-13 02:48] LABS: Basophils # (A) 0.1 k/uL (0-0.2); Basophils % (A) 1 %; Eosinophils # (A) 0.2 k/uL (0-0.7); Eosinophils % (A) 3 %; HCT 39.2 % (34.0-46.0); HGB 12.7 gm/dL (11.4-16.0); Lymphocytes % (A) 30 %; MCH 28.8 pg (25.0-35.0); MCHC 32.4 g/dL (31.0-37.0); MCV 88.8 fL (80.0-100.0); Mean Platelet Volume 7.3; Monocytes # (A) 0.4 k/uL (0-1.0); Monocytes % (A) 6 %; Neutrophils # (A) 3.9 k/uL (1.3-7.7); Neutrophils % (A) 58 %; Platelet Count 227 k/uL (150-450); RBC 4.42 m/uL (3.80-5.40); RDW 12.6 % (11.5-15.5); WBC 6.8 k/uL (3.8-10.6)
[2024-01-13 03:17] LABS: ALT 13 U/L (4-34); AST 19 U/L (14-36); African American GFR (CKD) >90 (>60 ml/min/1.73 sqM); Albumin 3.7 g/dL (3.5-5.0); Alkaline Phosphatase 68 U/L (38-126); Anion Gap 5 mmol/L; Blood Urea Nitrogen 9 mg/dL (7-17); Calcium 8.8 mg/dL (8.4-10.2); Carbon Dioxide 24 mmol/L (22-30); Chloride 109 mmol/L (98-107); Glucose 82 mg/dL (74-99); Lipase 140 U/L (23-300); Non-African American GFR(CKD) >90 (>60 ml/min/1.73 sqM); Potassium 3.7 mmol/L (3.5-5.1); Sodium 138 mmol/L (137-145); Total Bilirubin 0.3 mg/dL (0.2-1.3); Total Protein 6.2 g/dL (6.3-8.2)
--- NOTE | 2024-01-13 04:49 | CT ---
EXAM: CT Abdomen and Pelvis With Intravenous Contrast CLINICAL HISTORY: ITS.REASON CT Reason: pain TECHNIQUE: Axial computed tomography images of the abdomen and pelvis with intravenous contrast. CTDI is 14.9 mGy and DLP is 712.2 mGy-cm. This CT exam was performed using one or more of the following dose reduction techniques: automated exposure control, adjustment of the mA and/or kV according to patient size, and/or use of iterative reconstruction technique. COMPARISON: CT abdomen pelvis July 17, 2023. FINDINGS: Lung bases: Unremarkable. No mass. No consolidation. ABDOMEN: Liver: Unremarkable. No mass. Gallbladder and bile ducts: Unremarkable. No calcified stones. No ductal dilation. Pancreas: Unremarkable. No mass. No ductal dilation. Spleen: Unremarkable. No splenomegaly. Adrenals: Unremarkable. No mass. Kidneys and ureters: Unremarkable. No solid mass. No hydronephrosis. Stomach and bowel: RIGHT lower quadrant ileostomy with parastomal hernia measuring approximately 4.5 x 6.4 cm. The parastomal hernia contains a few loops of small bowel, which are not obstructed. Mild wall thickening of small bowel in the LEFT abdomen, correlate for mild enteritis. Total colectomy. PELVIS: Appendix: See above. Bladder: Unremarkable. No mass. Reproductive: LEFT adnexal cystic lesion measures 5.5 x 4.0 cm. Recommend nonemergent pelvic ultrasound correlation. ABDOMEN and PELVIS: Intraperitoneal space: Unremarkable. No free air. No significant fluid collection. Bones/joints: No acute fracture. No dislocation. Soft tissues: See above. Vasculature: Unremarkable. No abdominal aortic aneurysm. Lymph nodes: Unremarkable. No enlarged lymph nodes. IMPRESSION: 1. RIGHT lower quadrant ileostomy with parastomal hernia measuring approximately 4.5 x 6.4 cm. The parastomal hernia contains a few loops of small bowel, which are not obstructed. 2. LEFT adnexal cystic lesion measures 5.5 x 4.0 cm. Recommend nonemergent pelvic ultrasound correlation. 3. Mild wall thickening of small bowel in the LEFT abdomen, correlate for mild enteritis.
[2024-01-13 07:13] VITALS: BP 104/69; PULSE 73; RESP 18
== END 2024-01-13 07:57 | disposition home or self-care (01) ==
LOC: EC 01:29
CPT/HCPCS: 36415; 74177; 80053; 83605; 83690; 85025; 96361; 96374; 96375; 96376; 99284